=== PATIENT | male | born 1960 | race Caucasian/White ===

== ENCOUNTER 2016-04-12 22:24 | Emergency (ER) | payer OTHER ==
[2016-04-12 22:34] VITALS: BP 142/105; PULSE 97; RESP 18; TEMP 97.1
--- NOTE | 2016-04-12 22:59 | ED ---
General Adult HPI - General Chief complaint: Alcohol Stated complaint: ETOH, fall Time Seen by Provider: 04/12/16 22:29 Source: EMS, RN notes reviewed Mode of arrival: EMS Limitations: no limitations - History of Present Illness Initial comments: 56-year-old male presents emergency 5 chief complaint of fall. The patient without his house and he tripped and fell. Patient fell forward onto his hands and fell backwards onto his head. He had some odd sensation to the hands but denies any pain at this time. He did hit his head. According to family member he did not pass out. They were concerned because he hit his head. Patient does drink regularly. He states that he is intoxicated but they are here more for the fall.Patient denies any recent fever, chills, shortness of breath, chest pain, back pain, abdominal pain, nausea vomiting, numbness or tingling, dysuria or hematuria, constipation or diarrhea, headaches or visual changes, or any other current symptoms. - Related Data Home Medications Medication Instructions Recorded Confirmed No Known Home Medications [No 07/04/15 07/04/15 Known Home Medications] Allergies Allergy/AdvReac Type Severity Reaction Status Date / Time No Known Allergies Allergy Verified 04/12/16 22:34 Review of Systems ROS Statement: Those systems with pertinent positive or pertinent negative responses have been documented in the HPI. ROS Other: All systems not noted in ROS Statement are negative. Past Medical History Past Medical History: No Reported History History of Any Multi-Drug Resistant Organisms: None Reported Past Surgical History: No Surgical Hx Reported Past Psychological History: No Psychological Hx Reported Smoking Status: Current every day smoker Past Alcohol Use History: Daily, Heavy Past Drug Use History: None Reported General Exam Limitations: no limitations General appearance: alert, in no apparent distress, appears intoxicated Head exam: Present: atraumatic, normocephalic, normal inspection Eye exam: Present: normal appearance, PERRL, EOMI. Absent: scleral icterus, conjunctival injection, periorbital swelling ENT exam: Present: normal exam, mucous membranes moist Neck exam: Present: normal inspection. Absent: tenderness, meningismus, lymphadenopathy Respiratory exam: Present: normal lung sounds bilaterally. Absent: respiratory distress, wheezes, rales, rhonchi, stridor Cardiovascular Exam: Present: regular rate, normal rhythm, normal heart sounds. Absent: systolic murmur, diastolic murmur, rubs, gallop, clicks Back exam: Present: normal inspection Neurological exam: Present: alert, oriented X3, CN II-XII intact, normal gait. Absent: motor sensory deficit Psychiatric exam: Present: normal affect, normal mood, agitated Skin exam: Present: warm, dry, intact, normal color. Absent: rash Course Vital Signs 04/12/16 22:28 Temperature 97.1 F L Pulse Rate 97 Respiratory 18 Rate Blood Pressure 142/105 O2 Sat by Pulse 95 Oximetry Medical Decision Making - Medical Decision Making 56-year-old male presents to the emergency department with a chief complaint of fall. Patient is intoxicated in the room. Patient did have a CAT scan to the head injury. The sinuses reviewed and negative. Patient's significant other is in the room and does feel comfortable taking the patient home. She does take responsibility for him even though he is intoxicated. She states that she will watch him. This and she will have him discharged into her care. This is discussed with the patient and he agrees with this plan. QUESTIONS have been answered. He will be discharged. Disposition Clinical Impression: Fall, Alcoholic intoxication, Acute sinusitis Disposition: HOME SELF-CARE Condition: Stable Instructions: Alcohol Intoxication (ED), Head Injury (ED) Additional Instructions: Please use medication as discussed. Please follow up with family doctor if symptoms have not improved over the next two days. Please return to the emergency room if your symptoms increase or worsen or for any other concerns. Referrals: Diego Bonner MD [Primary Care Provider] - 1-2 days Time of Disposition: 23:16
--- NOTE | 2016-04-12 23:12 | CT ---
EXAM: CT Head Without Intravenous Contrast. CLINICAL HISTORY: Pain. TECHNIQUE: Axial computed tomography images of the head/brain without intravenous contrast. Coronal and sagittal reformations provided. DOSE INFORMATION: CTDI: 60.30 mGy DLP: 1084.60 mGy-cm COMPARISON: CT dated 07/04/2015. FINDINGS: Brain: No acute intracranial hemorrhage. No evidence of acute infarct. No significant white matter disease. No edema. No mass effect or midline shift. Ventricles: Unremarkable. No ventriculomegaly. Bones: Unremarkable. No acute fracture. Soft tissues: No significant soft tissue abnormality. Sinuses: Mucosal thickening, air-fluid level, and debris in the right maxillary sinus suggestive of acute sinusitis. Additional areas of mucosal thickening involving the paranasal sinuses, most prominently involving the ethmoid air cells. Mastoid air cells: Unremarkable as visualized. No mastoid effusion. IMPRESSION: 1. No evidence of acute intracranial abnormality. 2. Mucosal thickening, air-fluid level, and debris in the right maxillary sinus suggestive of acute sinusitis. Additional areas of mucosal thickening involving the paranasal sinuses, most prominently involving the ethmoid air cells. Recommend clinical correlation for sinusitis.
== END 2016-04-12 23:18 | disposition home or self-care (01) ==
LOC: EC 22:24
DX: S09.90XA Unspecified injury of head, initial encounter (principal); J01.90 Acute sinusitis, unspecified; F10.129 Alcohol abuse with intoxication, unspecified; F17.200 Nicotine dependence, unspecified, uncomplicated; W01.10XA Fall on same level from slipping, tripping and stumbling with subsequent striking against unspecified object, initial encounter
CPT/HCPCS: 70450; 99284

== ENCOUNTER 2017-08-07 12:42 | Emergency (ER) | payer OTHER ==
[2017-08-07 12:53] VITALS: BP 145/88; PULSE 79; RESP 18; TEMP 98
--- NOTE | 2017-08-07 13:29 | US ---
EXAMINATION TYPE: US venous doppler duplex LE RT DATE OF EXAM: 08/07/2017 1:22 PM COMPARISON: NONE CLINICAL HISTORY: Pain. Right lower leg pain x 3 days SIDE PERFORMED: Right TECHNIQUE: The lower extremity deep venous system is examined utilizing real time linear array sonog lyndon with graded compression, doppler sonography and color-flow sonography. VESSELS IMAGED: External Iliac Vein (EIV) Common Femoral Vein Deep Femoral Vein Greater Saphenous Vein * Femoral Vein Popliteal Vein Small Saphenous Vein * Proximal Calf Veins (* superficial vessels) Right Leg: Appears negative for DVT Grayscale, color doppler, spectral doppler imaging performed of the deep veins of the right lower ext remity. There is normal flow, compressibility, vascular waveforms. IMPRESSION: No ultrasound evidence for acute DVT in the right lower extremity.
--- NOTE | 2017-08-07 13:48 | ED ---
General Adult HPI - General Chief complaint: Extremity Injury, Lower Stated complaint: RT LEG PAIN Time Seen by Provider: 08/07/17 12:54 Source: patient Mode of arrival: wheelchair Limitations: no limitations - History of Present Illness Initial comments: 57-year-old male patient presents to the emergency department today for evaluation of right calf pain and swelling. Patient states that he woke up with the pain approximate 4 days ago. Patient states he has been wrapping with an Carlos Alberto wrap but nothing has been helping. Patient denies taking any pain medication for this. He denies any recent travel or long car rides. He denies any injury to the leg or calf. Denies any numbness or tingling to the leg. States that he does ride his bike a lot. Denies any fevers or chills. Denies any redness to the area. Denies any history of similar symptoms. Patient denies any recent rash, fever, chills, shortness breath, chest pain, abdominal pain, nausea, vomiting, diarrhea, constipation, back pain, numbness, tingling, dizziness, weakness, hematuria, dysuria, urinary urgency, urinary frequency, headache, visual changes, or any other complaints. - Related Data Home Medications Medication Instructions Recorded Confirmed traZODone HCL 50 mg PO HS 08/07/17 08/07/17 Previous Rx's Medication Instructions Recorded Ibuprofen [Motrin] 600 mg PO Q8HR PRN #30 tab 08/07/17 Allergies Allergy/AdvReac Type Severity Reaction Status Date / Time No Known Allergies Allergy Verified 08/07/17 12:59 Review of Systems ROS Statement: Those systems with pertinent positive or pertinent negative responses have been documented in the HPI. ROS Other: All systems not noted in ROS Statement are negative. Past Medical History Past Medical History: No Reported History History of Any Multi-Drug Resistant Organisms: None Reported Past Surgical History: No Surgical Hx Reported Past Psychological History: No Psychological Hx Reported Smoking Status: Current every day smoker Past Alcohol Use History: Daily, Heavy Past Drug Use History: None Reported General Exam Limitations: no limitations General appearance: alert, in no apparent distress, other (Physical well- developed, well-nourished adult male patient in no acute distress. Vital signs upon presentation are temperature 98.0F, pulse 79, respirations 18, blood pressure 145/88, pulse ox 98% on room air.) Eye exam: Present: normal appearance, PERRL, EOMI. Absent: scleral icterus, conjunctival injection, periorbital swelling ENT exam: Present: normal exam, normal oropharynx, mucous membranes moist Respiratory exam: Present: normal lung sounds bilaterally. Absent: respiratory distress, wheezes, rales, rhonchi, stridor Cardiovascular Exam: Present: regular rate, normal rhythm, normal heart sounds. Absent: systolic murmur, diastolic murmur, rubs, gallop, clicks Extremities exam: Present: normal inspection, full ROM, tenderness (Right calf tenderness), normal capillary refill, other (Skin to the right lower extremity is pink, warm, and dry. Cap refills less than 3 seconds. Pedal and posttibial pulses are 2+ and equal bilaterally.). Absent: pedal edema, joint swelling, calf tenderness Neurological exam: Present: alert, oriented X3, CN II-XII intact Psychiatric exam: Present: normal affect, normal mood Skin exam: Present: warm, dry, intact, normal color. Absent: rash Course Vital Signs 08/07/17 12:50 Temperature 98.0 F Pulse Rate 79 Respiratory 18 Rate Blood Pressure 145/88 O2 Sat by Pulse 98 Oximetry Medical Decision Making - Medical Decision Making 57-year-old male patient presented to the emergency department today for evaluation of right calf pain. Patient has no injury to the extremity. Physical examination is unremarkable. Patient neurovascularly intact. Ultrasound was obtained to rule out DVT, there is no evidence of DVT in the right lower extremity. Patient was given a prescription for ibuprofen. He was instructed to take this with food. He is instructed to follow-up with the primary care physician for recheck in 1-2 days. He is applying to Dr. Hernandez. Return parameters discussed in detail. He verbalizes understanding and agrees with this plan. - Radiology Data Radiology results: report reviewed, image reviewed Right lower extremity ultrasound was obtained. Report was reviewed in its entirety. Right leg appears negative for DVT. Impression by Dr. Chaves shows no ultrasound evidence for acute DVT in the right lower extremity. Disposition Clinical Impression: Strain of calf muscle Disposition: HOME SELF-CARE Condition: Good Instructions: Muscle Strain (ED) Additional Instructions: Rest the leg. Apply warm moist heat. Take ibuprofen as needed for pain control. Follow-up with your primary care physician for recheck in 1-2 days. Return here immediately for any new, worsening, or concerning symptoms. Prescriptions: Ibuprofen [Motrin] 600 mg PO Q8HR PRN #30 tab PRN Reason: Pain Is patient prescribed a controlled substance at d/c from ED?: No Referrals: None,Stated [Primary Care Provider] - 1-2 days Time of Disposition: 13:48
== END 2017-08-07 14:02 | disposition home or self-care (01) ==
LOC: EC 12:42
DX: S86.911A Strain of unspecified muscle(s) and tendon(s) at lower leg level, right leg, initial encounter (principal); F17.200 Nicotine dependence, unspecified, uncomplicated; Z79.899 Other long term (current) drug therapy; X58.XXXA Exposure to other specified factors, initial encounter
CPT/HCPCS: 99283

== ENCOUNTER 2017-08-29 13:21 | Emergency (ER) | payer OTHER ==
[2017-08-29] MEDS ORDERED: MAG HYDROX/AL HYDROX/SIMETH 30 ML, HYOSCYAMINE ELIXIR 10 ML, CIMETIDINE HCL 300 MG, LID... PO STA ×4 (14:30)
--- NOTE | 2017-08-29 14:52 | XR ---
EXAMINATION TYPE: XR chest 2V DATE OF EXAM: 08/29/2017 COMPARISON: NONE HISTORY: Chest pain TECHNIQUE: Frontal and lateral views of the chest are obtained. FINDINGS: There is no focal air space opacity, pleural effusion, or pneumothorax seen. The cardiac silhouette size is within normal limits. The osseous structures are intact. There are overlying car diac leads. IMPRESSION: No acute cardiopulmonary process.
[2017-08-29 14:59] LABS: Anisocytosis Slight; Basophils # (A) 0.1 k/uL (0-0.2); Basophils % (A) 1 %; Eosinophils # (A) 0.2 k/uL (0-0.7); Eosinophils % (A) 3 %; HCT 47.9 % (39.0-53.0); HGB 15.9 gm/dL (13.0-17.5); Lymphocytes # (A) 1.7 k/uL (1.0-4.8); Lymphocytes % (A) 24 %; MCH 34.3 pg (25.0-35.0); MCHC 33.1 g/dL (31.0-37.0); MCV 103.4 fL (80.0-100.0); Macrocytosis Moderate; Mean Platelet Volume 6.7; Monocytes # (A) 0.6 k/uL (0-1.0); Monocytes % (A) 8 %; Neutrophils # (A) 4.4 k/uL (1.3-7.7); Neutrophils % (A) 62 %; Platelet Count 267 k/uL (150-450); RBC 4.63 m/uL (4.30-5.90); RDW 16.9 % (11.5-15.5); WBC 7.1 k/uL (3.8-10.6)
[2017-08-29 15:02] LABS: Partial Thromboplastin Time 24.7 sec (22.0-30.0); Prothrombin Time 9.7 sec (9.0-12.0)
[2017-08-29 15:08] LABS: Albumin 3.9 g/dL (3.5-5.0); Calcium 9.5 mg/dL (8.4-10.2); Magnesium 2.3 mg/dL (1.6-2.3); Potassium 4.3 mmol/L (3.5-5.1); Total Bilirubin 0.7 mg/dL (0.2-1.3); Total Protein 7.3 g/dL (6.3-8.2)
[2017-08-29 15:23] VITALS: RESP 20
[2017-08-29 15:34] LABS: Creatine Kinase 469 U/L (55-170)
[2017-08-29] MEDS ORDERED: KETOROLAC 30 MG/ML 1 ML VIAL IVP STA (15:43)
[2017-08-29] MEDS ORDERED: PANTOPRAZOLE 40 MG/10 ML VIAL IVP STA (15:43)
--- NOTE | 2017-08-29 15:46 | ED ---
General Adult HPI - General Chief complaint: Chest Pain Stated complaint: Throat Pain Time Seen by Provider: 08/29/17 14:08 Source: patient, RN notes reviewed, old records reviewed Mode of arrival: ambulatory Limitations: no limitations - History of Present Illness Initial comments: This is a 57-year-old male the ER for evaluation chest pain. Substernal chest pain that states she is worse when swallowing. Patient has no medical history no travel history no sick contacts. Patient denies fevers or shortness of breath. States when he takes a deep breath or chest tightness also 3 does feel some pain in his sternum. Patient states he is able swallow without difficulty. Pain is not worse when he palpates. Pain is not worse after eating chest with swallowing. Patient states he does drink any does smoke regularly - Related Data Home Medications Medication Instructions Recorded Confirmed traZODone HCL 50 mg PO HS 08/07/17 08/29/17 Allergies Allergy/AdvReac Type Severity Reaction Status Date / Time No Known Allergies Allergy Verified 08/29/17 14:23 Review of Systems ROS Statement: Those systems with pertinent positive or pertinent negative responses have been documented in the HPI. ROS Other: All systems not noted in ROS Statement are negative. Past Medical History Past Medical History: No Reported History Additional Past Medical History / Comment(s): hard of hearing History of Any Multi-Drug Resistant Organisms: None Reported Past Surgical History: No Surgical Hx Reported Past Psychological History: No Psychological Hx Reported Smoking Status: Current every day smoker Past Alcohol Use History: Daily, Heavy Past Drug Use History: None Reported General Exam Limitations: no limitations General appearance: alert, in no apparent distress Head exam: Present: atraumatic, normocephalic, normal inspection Eye exam: Present: normal appearance, PERRL, EOMI. Absent: scleral icterus, conjunctival injection, periorbital swelling ENT exam: Present: normal exam, mucous membranes moist Neck exam: Present: normal inspection. Absent: tenderness, meningismus, lymphadenopathy Respiratory exam: Present: normal lung sounds bilaterally. Absent: respiratory distress, wheezes, rales, rhonchi, stridor Cardiovascular Exam: Present: regular rate, normal rhythm, normal heart sounds. Absent: systolic murmur, diastolic murmur, rubs, gallop, clicks GI/Abdominal exam: Present: soft, normal bowel sounds. Absent: distended, tenderness, guarding, rebound, rigid Extremities exam: Present: normal inspection, full ROM, normal capillary refill. Absent: tenderness, pedal edema, joint swelling, calf tenderness Back exam: Present: normal inspection Neurological exam: Present: alert, oriented X3, CN II-XII intact Psychiatric exam: Present: normal affect, normal mood Skin exam: Present: warm, dry, intact, normal color. Absent: rash Course Vital Signs 08/29/17 08/29/17 13:54 14:07 Temperature 98.2 F Pulse Rate 76 72 Respiratory 18 20 Rate Blood Pressure 142/88 126/85 O2 Sat by Pulse 98 99 Oximetry - Reevaluation(s) Reevaluation #1: 08/29/17 15:45 Patient has no improvement with GI cocktail, no worsening with abdominal or chest palpation. Patient currently without pain EKG Findings - EKG Comments: EKG Findings:: EKG shows normal sinus rhythm rate of 66, [place] 124, QRS 84, QTc 427 Medical Decision Making - Medical Decision Making 57 male the ER with nonspecific chest pain. No cardiac risk factors aside from smoking. Patient has negative EKG negative troponin. Patient also has normal lab values and normal ultrasound. Patient can be discharged home, x-ray also normal - Lab Data Result diagrams: 08/29/17 14:40 08/29/17 14:40 Lab Results 08/29/17 08/29/17 08/29/17 Range/Units 14:40 14:40 14:40 WBC 7.1 (3.8-10.6) k/uL RBC 4.63 (4.30-5.90) m/uL Hgb 15.9 (13.0-17.5) gm/dL Hct 47.9 (39.0-53.0) % MCV 103.4 H (80.0-100.0) fL MCH 34.3 (25.0-35.0) pg MCHC 33.1 (31.0-37.0) g/dL RDW 16.9 H (11.5-15.5) % Plt Count 267 (150-450) k/uL Neutrophils % 62 % Lymphocytes % 24 % Monocytes % 8 % Eosinophils % 3 % Basophils % 1 % Neutrophils # 4.4 (1.3-7.7) k/uL Lymphocytes # 1.7 (1.0-4.8) k/uL Monocytes # 0.6 (0-1.0) k/uL Eosinophils # 0.2 (0-0.7) k/uL Basophils # 0.1 (0-0.2) k/uL Anisocytosis Slight Macrocytosis Moderate PT (9.0-12.0) sec INR (<1.2) APTT (22.0-30.0) sec Sodium 136 L (137-145) mmol/L Potassium 4.3 (3.5-5.1) mmol/L Chloride 98 (98-107) mmol/L Carbon Dioxide 31 H (22-30) mmol/L Anion Gap 7 mmol/L BUN 11 (9-20) mg/dL Creatinine 1.13 (0.66-1.25) mg/dL Est GFR (CKD-EPI)AfAm 83 (>60 ml/min/1.73 sqM) Est GFR (CKD-EPI)NonAf 72 (>60 ml/min/1.73 sqM) Glucose 96 (74-99) mg/dL Calcium 9.5 (8.4-10.2) mg/dL Magnesium 2.3 (1.6-2.3) mg/dL Total Bilirubin 0.7 (0.2-1.3) mg/dL AST 59 (17-59) U/L ALT 73 H (21-72) U/L Alkaline Phosphatase 84 (38-126) U/L Total Creatine Kinase 469 H (55-170) U/L CK-MB (CK-2) 8.7 H* (0.0-2.4) ng/mL CK-MB (CK-2) Rel Index 1.9 Troponin I <0.012 (0.000-0.034) ng/mL Total Protein 7.3 (6.3-8.2) g/dL Albumin 3.9 (3.5-5.0) g/dL Lipase 123 (23-300) U/L 08/29/17 Range/Units 14:40 WBC (3.8-10.6) k/uL RBC (4.30-5.90) m/uL Hgb (13.0-17.5) gm/dL Hct (39.0-53.0) % MCV (80.0-100.0) fL MCH (25.0-35.0) pg MCHC (31.0-37.0) g/dL RDW (11.5-15.5) % Plt Count (150-450) k/uL Neutrophils % % Lymphocytes % % Monocytes % % Eosinophils % % Basophils % % Neutrophils # (1.3-7.7) k/uL Lymphocytes # (1.0-4.8) k/uL Monocytes # (0-1.0) k/uL Eosinophils # (0-0.7) k/uL Basophils # (0-0.2) k/uL Anisocytosis Macrocytosis PT 9.7 (9.0-12.0) sec INR 1.0 (<1.2) APTT 24.7 (22.0-30.0) sec Sodium (137-145) mmol/L Potassium (3.5-5.1) mmol/L Chloride (98-107) mmol/L Carbon Dioxide (22-30) mmol/L Anion Gap mmol/L BUN (9-20) mg/dL Creatinine (0.66-1.25) mg/dL Est GFR (CKD-EPI)AfAm (>60 ml/min/1.73 sqM) Est GFR (CKD-EPI)NonAf (>60 ml/min/1.73 sqM) Glucose (74-99) mg/dL Calcium (8.4-10.2) mg/dL Magnesium (1.6-2.3) mg/dL Total Bilirubin (0.2-1.3) mg/dL AST (17-59) U/L ALT (21-72) U/L Alkaline Phosphatase (38-126) U/L Total Creatine Kinase (55-170) U/L CK-MB (CK-2) (0.0-2.4) ng/mL CK-MB (CK-2) Rel Index Troponin I (0.000-0.034) ng/mL Total Protein (6.3-8.2) g/dL Albumin (3.5-5.0) g/dL Lipase (23-300) U/L - Radiology Data Radiology results: report reviewed (Chest x-ray negative), image reviewed Disposition Clinical Impression: Chest pain, Atypical chest pain, Dysphagia Disposition: HOME SELF-CARE Condition: Good Instructions: Chest Pain (ED) Is patient prescribed a controlled substance at d/c from ED?: No Referrals: None,Stated [Primary Care Provider] - 1-2 days
[2017-08-29 15:47] LABS: Troponin I <0.012 ng/mL (0.000-0.034)
[2017-08-29 15:52] LABS: Creatine Kinase MB 8.7 ng/mL (0.0-2.4)
[2017-08-29 16:21] VITALS: BP 131/83; PULSE 64; TEMP 98.3
== END 2017-08-29 16:30 | disposition home or self-care (01) ==
LOC: EC 13:21
DX: R07.89 Other chest pain (principal); R13.10 Dysphagia, unspecified; F17.200 Nicotine dependence, unspecified, uncomplicated; Z79.899 Other long term (current) drug therapy
CPT/HCPCS: 36415; 93005; 80053; 82550; 82553; 83690; 83735; 84484; 85025; 85610; 85730; 71046; 99285; 96374; 96375; J1885; C9113

== ENCOUNTER 2018-02-12 01:23 | Emergency (ER) | payer OTHER ==
[2018-02-12] MEDS ORDERED: FAMOTIDINE 20 MG/2 ML VIAL IV STA (01:32)
--- NOTE | 2018-02-12 01:38 | ED ---
Chest Pain HPI - General Stated Complaint: CHEST PAIN Time Seen by Provider: 02/12/18 01:23 - History of Present Illness Initial Comments: Is a 58-year-old male with no past medical history who presents emergency department for epigastric pain and chest pain. He states the symptoms been going on intermittently for the last 3 days. He states that it started more in his epigastric region however now has radiated up into his chest. He states that currently he has no pain. He states that it's been intermittent in nature. It does seem to be made worse after eating however not drinking. He states that he does drink alcohol regularly and did drink this evening. He denies any lightheadedness or dizziness. He does admit to some vomiting however no hematemesis. No diarrhea. Denies any shortness of breath or cough. No other acute complaints. Patient did call an ambulance who gave him an aspirin and an EKG which is unremarkable. He did not receive any nitroglycerin because he had no pain at the time. - Related Data Home Medications Medication Instructions Recorded Confirmed traZODone HCL 50 mg PO HS 08/07/17 08/29/17 Previous Rx's Medication Instructions Recorded Omeprazole 40 mg PO DAILY #30 capsule. 02/12/18 Ranitidine HCl [Zantac] 150 mg PO HS #30 tab 02/12/18 Allergies Allergy/AdvReac Type Severity Reaction Status Date / Time No Known Allergies Allergy Verified 08/29/17 14:23 Review of Systems ROS Statement: Those systems with pertinent positive or pertinent negative responses have been documented in the HPI. ROS Other: All systems not noted in ROS Statement are negative. EKG Findings - EKG Comments: EKG Findings:: EKG showing normal sinus rhythm with a rate of 77. There is no abnormal lie segment changes or T-wave or appear QTC is 445. Other intervals normal. No ectopy. Past Medical History Past Medical History: No Reported History Additional Past Medical History / Comment(s): hard of hearing History of Any Multi-Drug Resistant Organisms: None Reported Past Surgical History: No Surgical Hx Reported Past Psychological History: No Psychological Hx Reported Smoking Status: Current every day smoker Past Alcohol Use History: Daily, Heavy Past Drug Use History: None Reported General Exam - General Exam Comments Initial Comments: Constitutional: Awake alert Appears comfortable Head: Normocephalic atraumatic Eyes: no conjunctival injection No scleral icterus EOMI Neck: No JVD Supple Heart: Regular rate rhythm normal S1-S2 no murmurs Lungs: Clear to auscultation bilaterally No wheezing No rales Abdomen: Soft nondistended nontender Extremities: Non edematous DP pulses intact Radial pulses intact Neuro: A&Ox3 No focal neurologic deficits Psych: Appropriate mood and affect Course Vital Signs 02/12/18 01:30 Temperature 98.3 F Pulse Rate 78 Respiratory 19 Rate Blood Pressure 130/87 O2 Sat by Pulse 97 Oximetry Chest Pain MDM - MDM Is a 58-year-old male presents emergency department for epigastric pain and chest pain. The patient was given Pepcid in the emergency department with great relief in his symptoms. He states he felt much improved. EKG was unremarkable. Troponin negative. The rest of his blood work was unremarkable as well. I feel that his symptoms are likely related to gastritis and reflux. He will be given omeprazole and Zantac for home. Told to follow-up closely with his primary doctor. If it recurrent or worsening symptoms he can return emergency Department for reevaluation. All questions were answered. Disposition Clinical Impression: Epigastric pain, Chest pain Disposition: HOME SELF-CARE Condition: Stable Instructions: Gastritis (ED) Prescriptions: Omeprazole 40 mg PO DAILY #30 capsule. Ranitidine HCl [Zantac] 150 mg PO HS #30 tab Is patient prescribed a controlled substance at d/c from ED?: No Referrals: None,Stated [Primary Care Provider] - 1-2 days
[2018-02-12 02:03] LABS: Basophils # (A) 0.1 k/uL (0-0.2); Basophils % (A) 1 %; Eosinophils # (A) 0.3 k/uL (0-0.7); Eosinophils % (A) 3 %; HCT 43.4 % (39.0-53.0); HGB 13.9 gm/dL (13.0-17.5); Lymphocytes # (A) 2.2 k/uL (1.0-4.8); Lymphocytes % (A) 26 %; MCH 31.2 pg (25.0-35.0); MCHC 31.9 g/dL (31.0-37.0); MCV 97.6 fL (80.0-100.0); Macrocytosis Slight; Mean Platelet Volume 6.7; Monocytes # (A) 0.4 k/uL (0-1.0); Monocytes % (A) 5 %; Neutrophils # (A) 5.2 k/uL (1.3-7.7); Neutrophils % (A) 63 %; Platelet Count 314 k/uL (150-450); RBC 4.45 m/uL (4.30-5.90); RDW 15.6 % (11.5-15.5); WBC 8.3 k/uL (3.8-10.6)
--- NOTE | 2018-02-12 02:10 | XR ---
EXAMINATION TYPE: XR chest 2V DATE OF EXAM: 02/12/2018 COMPARISON: 08/29/2017 HISTORY: Chest pain TECHNIQUE: Frontal and lateral views of the chest are obtained. FINDINGS: Heart and mediastinum are normal. Lungs are clear. Diaphragm is normal. Bony thorax appear s normal. IMPRESSION: Normal chest. No change.
[2018-02-12 02:13] LABS: ALT 26 U/L (21-72); AST 34 U/L (17-59); Albumin 4.2 g/dL (3.5-5.0); Alkaline Phosphatase 68 U/L (38-126); Anion Gap 14 mmol/L; Blood Urea Nitrogen 12 mg/dL (9-20); Calcium 9.2 mg/dL (8.4-10.2); Carbon Dioxide 23 mmol/L (22-30); Chloride 104 mmol/L (98-107); Glucose 102 mg/dL (74-99); Lipase 138 U/L (23-300); Sodium 141 mmol/L (137-145); Total Bilirubin 0.7 mg/dL (0.2-1.3); Total Protein 8.1 g/dL (6.3-8.2)
[2018-02-12 02:14] LABS: Potassium 4.7 mmol/L (3.5-5.1)
[2018-02-12 02:37] LABS: Creatine Kinase MB 3.8 ng/mL (0.0-2.4); Troponin I <0.012 ng/mL (0.000-0.034)
[2018-02-12 02:54] LABS: INR 0.9 (<1.2); Partial Thromboplastin Time 24.7 sec (22.0-30.0)
[2018-02-12 04:21] VITALS: BP 124/87; PULSE 73; RESP 18; TEMP 97.9
== END 2018-02-12 03:50 | disposition home or self-care (01) ==
LOC: EC 01:23
DX: R10.13 Epigastric pain (principal); R07.9 Chest pain, unspecified; R11.10 Vomiting, unspecified; F17.200 Nicotine dependence, unspecified, uncomplicated; Z79.899 Other long term (current) drug therapy
CPT/HCPCS: 36415; 71046; 80053; 82553; 83690; 83735; 84484; 85025; 85610; 85730; 93005; 96374; 99285

== ENCOUNTER 2018-09-20 20:58 | Emergency (ER) | payer OTHER ==
[2018-09-20] MEDS ORDERED: IBUPROFEN 600 MG TAB PO STA (21:54)
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
[2018-09-20] MEDS ORDERED: MORPHINE SULFATE 4 MG/ML SYRINGE IVP STA (22:20)
[2018-09-20] MEDS ORDERED: SODIUM CHLORIDE 0.9% 1,000 ML IV ONE (22:20)
[2018-09-20] MEDS ORDERED: AMPICILLIN-SULBACTAM 3 GM in SODIUM CHLORIDE 0.9% 100 ML IVPB ONE (22:30)
[2018-09-20 22:44] LABS: Basophils % (A) 0 %; Eosinophils # (A) 0.2 k/uL (0-0.7); Eosinophils % (A) 3 %; Lymphocytes # (A) 1.3 k/uL (1.0-4.8); Lymphocytes % (A) 15 %; MCH 34.2 pg (25.0-35.0); MCHC 31.3 g/dL (31.0-37.0); MCV 109.2 fL (80.0-100.0); Macrocytosis Marked; Mean Platelet Volume 7.1; Monocytes # (A) 0.4 k/uL (0-1.0); Monocytes % (A) 5 %; Neutrophils # (A) 6.7 k/uL (1.3-7.7); Neutrophils % (A) 76 %; Platelet Count 239 k/uL (150-450); RDW 14.6 % (11.5-15.5); WBC 8.8 k/uL (3.8-10.6)
[2018-09-20 22:52] LABS: INR 0.9 (<1.2); Partial Thromboplastin Time 23.6 sec (22.0-30.0); Prothrombin Time 9.7 sec (9.0-12.0)
[2018-09-20 23:13] LABS: Target Cells Present
[2018-09-20 23:14] LABS: Tear Drop Cells Present
[2018-09-20 23:46] LABS: ALT 86 U/L (21-72); AST 100 U/L (17-59); African American GFR (CKD) >90 (>60 ml/min/1.73 sqM); Albumin 4.2 g/dL (3.5-5.0); Alkaline Phosphatase 100 U/L (38-126); Blood Urea Nitrogen 11 mg/dL (9-20); Calcium 9.2 mg/dL (8.4-10.2); Carbon Dioxide 26 mmol/L (22-30); Glucose 99 mg/dL (74-99); Non-African American GFR(CKD) 86 (>60 ml/min/1.73 sqM); Total Bilirubin 0.3 mg/dL (0.2-1.3); Total Protein 7.9 g/dL (6.3-8.2)
[2018-09-20 23:47] LABS: Alcohol 202 mg/dL
[2018-09-20 23:50] LABS: Anion Gap 12 mmol/L; Chloride 106 mmol/L (98-107); Sodium 144 mmol/L (137-145)
[2018-09-21] MEDS ORDERED: SODIUM CHLORIDE 0.9% 1,000 ML IV STA (01:02)
[2018-09-21] MEDS ORDERED: LORazepam 2 MG/ML INJ IV STA (01:02)
[2018-09-21 01:05] LABS: Glucose,Whole Blood 103 mg/dL (75-99)
[2018-09-21] MEDS ORDERED: LORazepam 2 MG/ML INJ IV PRN ×3 (01:08)
[2018-09-21] MEDS ORDERED: THIAMINE 100 MG/ML 2 ML VIAL IM STA (01:08)
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
[2018-09-21 02:17] LABS: Basophils # (A) 0.1 k/uL (0-0.2); Basophils % (A) 0 %; Eosinophils # (A) 0.4 k/uL (0-0.7); Eosinophils % (A) 3 %; HCT 46.2 % (39.0-53.0); HGB 14.8 gm/dL (13.0-17.5); Lymphocytes # (A) 1.8 k/uL (1.0-4.8); Lymphocytes % (A) 12 %; MCH 35.6 pg (25.0-35.0); Macrocytosis Marked; Mean Platelet Volume 7.4; Monocytes # (A) 0.7 k/uL (0-1.0); Monocytes % (A) 5 %; Neutrophils # (A) 11.8 k/uL (1.3-7.7); Neutrophils % (A) 79 %; Platelet Count 211 k/uL (150-450); RBC 4.15 m/uL (4.30-5.90); RDW 14.7 % (11.5-15.5); WBC 14.9 k/uL (3.8-10.6)
[2018-09-21 02:20] LABS: MCV 111.2 fL (80.0-100.0)
[2018-09-21 02:55] LABS: ALT 81 U/L (21-72); AST 87 U/L (17-59); African American GFR (CKD) >90 (>60 ml/min/1.73 sqM); Albumin 3.6 g/dL (3.5-5.0); Alkaline Phosphatase 76 U/L (38-126); Anion Gap 9 mmol/L; Blood Urea Nitrogen 9 mg/dL (9-20); Calcium 8.1 mg/dL (8.4-10.2); Carbon Dioxide 23 mmol/L (22-30); Chloride 113 mmol/L (98-107); Glucose 91 mg/dL (74-99); Non-African American GFR(CKD) >90 (>60 ml/min/1.73 sqM); Sodium 145 mmol/L (137-145); Total Bilirubin 0.4 mg/dL (0.2-1.3); Total Protein 7.3 g/dL (6.3-8.2)
[2018-09-21 02:58] LABS: Alcohol 121 mg/dL
[2018-09-21 03:17] LABS: Cocaine Screen,Urine Not Detected (NotDetected); Phencyclidine Screen,Urine Not Detected (NotDetected)
[2018-09-21 03:18] LABS: Amphetamine Screen,Urine Detected (NotDetected); Barbiturate Screen,Urine Not Detected (NotDetected); Benzodiazepines Screen,Urine Not Detected (NotDetected); Methadone Screen, Urine Not Detected (NotDetected); Opiate Screen,Urine Detected (NotDetected); Oxycodone Screen, Urine Not Detected (NotDetected); Tricyclic Antidepressant,Urine Not Detected (NotDetected); Urn Cannabinoid Scrn Not Detected (NotDetected)
[2018-09-21 03:54] VITALS: TEMP 97.8
[2018-09-21 04:24] VITALS: BP 115/70; PULSE 85; RESP 12
[2018-09-21] MEDS ORDERED: THIAMINE 100 MG TAB PO SCH (17:00)
== END 2018-09-21 04:30 | disposition home or self-care (01) ==
LOC: EC 20:58
DX: S02.69XA Fracture of mandible of other specified site, initial encounter for closed fracture (principal); S01.512A Laceration without foreign body of oral cavity, initial encounter; S09.90XA Unspecified injury of head, initial encounter; T74.11XA Adult physical abuse, confirmed, initial encounter; F10.129 Alcohol abuse with intoxication, unspecified; F17.200 Nicotine dependence, unspecified, uncomplicated; J34.89 Other specified disorders of nose and nasal sinuses; R56.9 Unspecified convulsions; D72.829 Elevated white blood cell count, unspecified; H91.90 Unspecified hearing loss, unspecified ear; Z53.20 Procedure and treatment not carried out because of patient's decision for unspecified reasons; Y04.0XXA Assault by unarmed brawl or fight, initial encounter; Y93.89 Activity, other specified; Y92.89 Other specified places as the place of occurrence of the external cause
CPT/HCPCS: 36415 ×2; 93005; 80053 ×2; 83605; 85025 ×2; 85610; 85730; 80306; 72125; 70486; 70450 ×2; 99285; 96365; 96375 ×2; 96361 ×3; G0480 ×2; J2060; J2270; J3411; J0295; 80320

== ENCOUNTER 2019-10-16 18:32 | Emergency (ER) | payer OTHER ==
[2019-10-16 18:53] LABS: Glucose,Whole Blood 106 mg/dL (75-99)
--- NOTE | 2019-10-16 19:02 | ED ---
General Adult HPI - General Chief complaint: Neck Pain/Injury Stated complaint: poss stroke Time Seen by Provider: 10/16/19 18:49 Source: patient, family Mode of arrival: wheelchair Limitations: altered mental status - History of Present Illness Initial comments: Dictation was produced using [employer] dictation software. please excuse any grammatical, word or spelling errors. This patient was cared for during a federal and state declared state of emergency secondary to Covid 19 Chief Complaint: 59-year-old male with past medical history of alcoholism presents with chief complaint of neck pain and altered mental status. History of Present Illness: His 59-year-old male he is accompanied by his girlfriend of several years. Since last night been having neck pain. Patient states the neck pain is to his right upper neck. It's worse when he moves. Girlfriend at bedside reports that he is also confused. Patient has history of chronic alcohol abuse. She reports that patient has not had any alcoholic beverages today. Patient has no chest pain. No abdominal pain. No fever, chills or night sweats. Patient's girlfriend reports that patient has been having symptoms like this for the last 3 days. The ROS documented in this emergency department record has been reviewed and confirmed by me. Those systems with pertinent positive or negative responses have been documented in the HPI. All other systems are other negative and/or noncontributory. PHYSICAL EXAM: General Impression: Alert and oriented x3, not in acute distress, lethargic, arousable HEENT: Normocephalic atraumatic, extra-ocular movements intact, pupils equal and reactive to light bilaterally, mucous membranes moist. Cardiovascular: Heart regular rate and rhythm Chest: Able to complete full sentences, no retractions, no tachypnea Abdomen: abdomen soft, non-tender, non-distended, no organomegaly Musculoskeletal: Pulses present and equal in all extremities, no peripheral edema, tenderness to palpation over the right upper neck around the level of C3- C4 Motor: no focal deficits noted Neurological: CN II-XII grossly intact, no focal motor or sensory deficits noted, negative Brudzinski's, negative Kernig's Skin: Intact with no visualized rashes Psych: Normal affect and mood ED course: 59-year-old male presents with neck pain and altered mental status. All signs upon arrival are within acceptable limits. Laboratory evaluation obtained. CBC shows macrocytosis. Rest of CBC is unremarkable. Coag panel is negative. Metabolic panel is negative. Chest x- ray is not acute. Computed tomography scan of the C-spine and computed tomography scan of the brain is unremarkable. Patient does seem as if he is inebriated on some sort of drug. Urine drug screen positive for multiple illicit substances. Patient reevaluated at bedside found to be stable medical condition. He states his pain is improved. Patient likely pulled a muscle. He is agreeable for discharge under the care of his girlfriend. He is warned of the effects of illicit drug use. - Related Data Home Medications Medication Instructions Recorded Confirmed traZODone HCL 50 mg PO HS 08/07/17 08/29/17 Previous Rx's Medication Instructions Recorded Omeprazole 40 mg PO DAILY #30 capsule. 02/12/18 Ranitidine HCl [Zantac] 150 mg PO HS #30 tab 02/12/18 Acetaminophen with Codeine 1 tab PO Q6H PRN 3 Days #12 tab 09/21/18 [Tylenol w/codeine #3] Clindamycin [Cleocin] 450 mg PO TID 7 Days capsule 09/21/18 Allergies Allergy/AdvReac Type Severity Reaction Status Date / Time No Known Allergies Allergy Verified 08/29/17 14:23 Review of Systems ROS Statement: Those systems with pertinent positive or pertinent negative responses have been documented in the HPI. ROS Other: All systems not noted in ROS Statement are negative. Past Medical History Past Medical History: No Reported History Additional Past Medical History / Comment(s): hard of hearing History of Any Multi-Drug Resistant Organisms: None Reported Past Surgical History: No Surgical Hx Reported Past Psychological History: No Psychological Hx Reported Smoking Status: Current every day smoker Past Alcohol Use History: Daily, Heavy Past Drug Use History: None Reported General Exam Limitations: altered mental status Course Vital Signs 10/16/19 18:43 Temperature 98.9 F Pulse Rate 69 Respiratory 18 Rate Blood Pressure 133/97 O2 Sat by Pulse 98 Oximetry Medical Decision Making - Lab Data Result diagrams: 10/16/19 19:07 10/16/19 19:07 Lab Results 10/16/19 10/16/19 10/16/19 Range/Units 18:51 19:07 19:07 WBC (3.8-10.6) k/uL RBC (4.30-5.90) m/uL Hgb (13.0-17.5) gm/dL Hct (39.0-53.0) % MCV (80.0-100.0) fL MCH (25.0-35.0) pg MCHC (31.0-37.0) g/dL RDW (11.5-15.5) % Plt Count (150-450) k/uL Neutrophils % % Lymphocytes % % Monocytes % % Eosinophils % % Basophils % % Neutrophils # (1.3-7.7) k/uL Lymphocytes # (1.0-4.8) k/uL Monocytes # (0-1.0) k/uL Eosinophils # (0-0.7) k/uL Basophils # (0-0.2) k/uL Macrocytosis PT (9.0-12.0) sec INR (<1.2) APTT (22.0-30.0) sec Sodium 139 (137-145) mmol/L Potassium 4.0 (3.5-5.1) mmol/L Chloride 106 (98-107) mmol/L Carbon Dioxide 26 (22-30) mmol/L Anion Gap 7 mmol/L BUN 16 (9-20) mg/dL Creatinine 0.98 (0.66-1.25) mg/dL Est GFR (CKD-EPI)AfAm >90 (>60 ml/min/1.73 sqM) Est GFR (CKD-EPI)NonAf 85 (>60 ml/min/1.73 sqM) Glucose 112 H (74-99) mg/dL POC Glucose (mg/dL) 106 H (75-99) mg/dL POC Glu Waiver Analyst ID Brijesh Leiva Osmolality 296 (280-301) mosm/kg Plasma Lactic Acid Swapnil 0.6 L (0.7-2.0) mmol/L Calcium 9.6 (8.4-10.2) mg/dL Magnesium 2.0 (1.6-2.3) mg/dL Total Bilirubin 0.6 (0.2-1.3) mg/dL AST 51 (17-59) U/L ALT 58 H (4-49) U/L Alkaline Phosphatase 103 (38-126) U/L Ammonia 37 H (<30) umol/L Total Protein 7.5 (6.3-8.2) g/dL Albumin 4.0 (3.5-5.0) g/dL Salicylates <1.0 mg/dL Urine Opiates Screen (NotDetected) Ur Oxycodone Screen (NotDetected) Urine Methadone Screen (NotDetected) Ur Propoxyphene Screen (NotDetected) Acetaminophen <10.0 ug/mL Ur Barbiturates Screen (NotDetected) U Tricyclic Antidepress (NotDetected) Ur Phencyclidine Scrn (NotDetected) Ur Amphetamines Screen (NotDetected) U Methamphetamines Scrn (NotDetected) U Benzodiazepines Scrn (NotDetected) Urine Cocaine Screen (NotDetected) U Marijuana (THC) Screen (NotDetected) Serum Alcohol <10 mg/dL 10/16/19 10/16/19 10/16/19 Range/Units 19:07 19:07 19:07 WBC 10.8 H (3.8-10.6) k/uL RBC 4.35 (4.30-5.90) m/uL Hgb 14.3 (13.0-17.5) gm/dL Hct 45.0 (39.0-53.0) % MCV 103.5 H (80.0-100.0) fL MCH 32.8 (25.0-35.0) pg MCHC 31.7 (31.0-37.0) g/dL RDW 15.4 (11.5-15.5) % Plt Count 279 (150-450) k/uL Neutrophils % 70 % Lymphocytes % 19 % Monocytes % 6 % Eosinophils % 4 % Basophils % 1 % Neutrophils # 7.5 (1.3-7.7) k/uL Lymphocytes # 2.0 (1.0-4.8) k/uL Monocytes # 0.6 (0-1.0) k/uL Eosinophils # 0.5 (0-0.7) k/uL Basophils # 0.1 (0-0.2) k/uL Macrocytosis Moderate PT 9.5 (9.0-12.0) sec INR 0.9 (<1.2) APTT 25.7 (22.0-30.0) sec Sodium (137-145) mmol/L Potassium (3.5-5.1) mmol/L Chloride (98-107) mmol/L Carbon Dioxide (22-30) mmol/L Anion Gap mmol/L BUN (9-20) mg/dL Creatinine (0.66-1.25) mg/dL Est GFR (CKD-EPI)AfAm (>60 ml/min/1.73 sqM) Est GFR (CKD-EPI)NonAf (>60 ml/min/1.73 sqM) Glucose (74-99) mg/dL POC Glucose (mg/dL) (75-99) mg/dL POC Glu Waiver Analyst ID Osmolality (280-301) mosm/kg Plasma Lactic Acid Swapnil (0.7-2.0) mmol/L Calcium (8.4-10.2) mg/dL Magnesium (1.6-2.3) mg/dL Total Bilirubin (0.2-1.3) mg/dL AST (17-59) U/L ALT (4-49) U/L Alkaline Phosphatase (38-126) U/L Ammonia (<30) umol/L Total Protein (6.3-8.2) g/dL Albumin (3.5-5.0) g/dL Salicylates mg/dL Urine Opiates Screen Not Detected (NotDetected) Ur Oxycodone Screen Detected H (NotDetected) Urine Methadone Screen Not Detected (NotDetected) Ur Propoxyphene Screen Not Detected (NotDetected) Acetaminophen ug/mL Ur Barbiturates Screen Detected H (NotDetected) U Tricyclic Antidepress Not Detected (NotDetected) Ur Phencyclidine Scrn Not Detected (NotDetected) Ur Amphetamines Screen Detected H (NotDetected) U Methamphetamines Scrn Detected H (NotDetected) U Benzodiazepines Scrn Not Detected (NotDetected) Urine Cocaine Screen Not Detected (NotDetected) U Marijuana (THC) Screen Not Detected (NotDetected) Serum Alcohol mg/dL Disposition Clinical Impression: Neck strain Disposition: HOME SELF-CARE Condition: Good Instructions (If sedation given, give patient instructions): Cervical Strain (ED), Polysubstance Abuse (ED) Is patient prescribed a controlled substance at d/c from ED?: No Referrals: Schuyler Hernandez MD [Primary Care Provider] - 1-2 days Time of Disposition: 20:37
[2019-10-16 19:19] LABS: Basophils # (A) 0.1 k/uL (0-0.2); Basophils % (A) 1 %; Eosinophils # (A) 0.5 k/uL (0-0.7); Eosinophils % (A) 4 %; HGB 14.3 gm/dL (13.0-17.5); Lymphocytes % (A) 19 %; MCH 32.8 pg (25.0-35.0); MCHC 31.7 g/dL (31.0-37.0); MCV 103.5 fL (80.0-100.0); Macrocytosis Moderate; Mean Platelet Volume 7.8; Monocytes # (A) 0.6 k/uL (0-1.0); Monocytes % (A) 6 %; Neutrophils # (A) 7.5 k/uL (1.3-7.7); Neutrophils % (A) 70 %; Platelet Count 279 k/uL (150-450); RBC 4.35 m/uL (4.30-5.90); RDW 15.4 % (11.5-15.5); WBC 10.8 k/uL (3.8-10.6)
[2019-10-16 19:28] LABS: INR 0.9 (<1.2); Partial Thromboplastin Time 25.7 sec (22.0-30.0); Prothrombin Time 9.5 sec (9.0-12.0)
[2019-10-16 19:34] LABS: ALT 58 U/L (4-49); AST 51 U/L (17-59); Acetaminophen <10.0 ug/mL; African American GFR (CKD) >90 (>60 ml/min/1.73 sqM); Alcohol <10 mg/dL; Alkaline Phosphatase 103 U/L (38-126); Anion Gap 7 mmol/L; Blood Urea Nitrogen 16 mg/dL (9-20); Calcium 9.6 mg/dL (8.4-10.2); Carbon Dioxide 26 mmol/L (22-30); Chloride 106 mmol/L (98-107); Glucose 112 mg/dL (74-99); Non-African American GFR(CKD) 85 (>60 ml/min/1.73 sqM); Salicylate <1.0 mg/dL; Sodium 139 mmol/L (137-145); Total Bilirubin 0.6 mg/dL (0.2-1.3); Total Protein 7.5 g/dL (6.3-8.2)
[2019-10-16 19:35] LABS: Lactic Acid, Venous 0.6 mmol/L (0.7-2.0)
--- NOTE | 2019-10-16 19:37 | XR ---
EXAMINATION: XR chest 1V portable DATE AND TIME: 10/16/2019 7:16 PM CLINICAL INDICATION: ams; pain TECHNIQUE: AP upright portable COMPARISON: 02/12/2018 FINDINGS: Right hemidiaphragm is elevated, this was seen on the prior study. This does not allow full visualization of the right lower lobe. The lungs are clear. The pleural spaces are negative. The cardiac silhouette is not enlarged. The remainder of the mediastinal silhouette is unremarkable. The skeletal structures and soft tissues are negative for acute findings. IMPRESSION: No definite acute radiographic process.
[2019-10-16 20:25] LABS: Amphetamine Screen,Urine Detected (NotDetected); Barbiturate Screen,Urine Detected (NotDetected); Benzodiazepines Screen,Urine Not Detected (NotDetected); Cocaine Screen,Urine Not Detected (NotDetected); Methadone Screen, Urine Not Detected (NotDetected); Opiate Screen,Urine Not Detected (NotDetected); Oxycodone Screen, Urine Detected (NotDetected); Phencyclidine Screen,Urine Not Detected (NotDetected); Tricyclic Antidepressant,Urine Not Detected (NotDetected); Urn Cannabinoid Scrn Not Detected (NotDetected)
--- NOTE | 2019-10-16 20:29 | CT ---
EXAMINATION TYPE: CT brain cspine wo con DATE OF EXAM: 10/16/2019 COMPARISON: 09/21/2018 HISTORY: Altered mental status and neck pain. CT DLP: 1366 mGycm Automated exposure control for dose reduction was used. TECHNIQUE: CT scan of the head and cervical spine are performed without contrast. FINDINGS: There is no acute intracranial hemorrhage, mass effect, or midline shift identified. The ventricles and sulci are within normal limits in size. The globes are intact and the visualized sin uses are clear. Cervical spine is visualized in its entirety from C1 through upper thoracic levels and demonstrates s atisfactory alignment without evidence of acute fracture or dislocation. Prevertebral soft tissue ap pears within normal limits. Prominent multilevel cervical spondylosis changes are noted. The C1-C2 ar ticulation is unremarkable. IMPRESSION: 1. There is no acute fracture or dislocation evident in the cervical spine. 2. No acute intracranial hemorrhage, mass effect, or midline shift is seen.
[2019-10-16] MEDS ORDERED: LIDOCAINE 5% PATCH TOPICAL STA (20:37)
[2019-10-16 21:09] VITALS: BP 133/89; PULSE 63; RESP 12; TEMP 97.6
== END 2019-10-16 21:09 | disposition home or self-care (01) ==
LOC: EC 18:32
DX: S16.1XXA Strain of muscle, fascia and tendon at neck level, initial encounter (principal); D75.89 Other specified diseases of blood and blood-forming organs; F17.200 Nicotine dependence, unspecified, uncomplicated; X58.XXXA Exposure to other specified factors, initial encounter
CPT/HCPCS: 36415; 83930; 80053; 82140; 83605; 83735; 85025; 85610; 85730; 80306; 83520; 71045; 72125; 70450; 99285; G0480 ×2; 80320; 80329

== ENCOUNTER 2019-10-28 03:36 | Emergency (ER) | payer OTHER ==
[2019-10-28 03:44] VITALS: BP 121/88; PULSE 67; RESP 16; TEMP 97.3
--- NOTE | 2019-10-28 04:28 | ED ---
General Adult HPI - General Stated complaint: neck pain Time Seen by Provider: 10/28/19 03:41 Source: patient, EMS Mode of arrival: EMS Limitations: no limitations - History of Present Illness Initial comments: Jae is a 59-year-old male with a history of alcohol abuse he was evaluated in our hospital nearly 2 weeks ago for right-sided neck pain. Patient reports he did not follow-up with any physicians outpatient because no one called him with an appointment. He states that he has not been taking anything for his pain. Patient reports that he's had continuous neck pain since that time. Denies any specific injuries. Patient's girlfriend at bedside states that tonight he was in pain so she called the ambulance. EMS reports that patient fell asleep and route to the hospital appeared to be in no acute distress. - Related Data Home Medications Medication Instructions Recorded Confirmed traZODone HCL 50 mg PO HS 08/07/17 08/29/17 Previous Rx's Medication Instructions Recorded Omeprazole 40 mg PO DAILY #30 capsule. 02/12/18 Ranitidine HCl [Zantac] 150 mg PO HS #30 tab 02/12/18 Acetaminophen with Codeine 1 tab PO Q6H PRN 3 Days #12 tab 09/21/18 [Tylenol w/codeine #3] Clindamycin [Cleocin] 450 mg PO TID 7 Days capsule 09/21/18 Methocarbamol [Robaxin-750] 750 mg PO TID #30 tablet 10/28/19 Allergies Allergy/AdvReac Type Severity Reaction Status Date / Time No Known Allergies Allergy Verified 10/28/19 03:44 Review of Systems ROS Statement: Those systems with pertinent positive or pertinent negative responses have been documented in the HPI. ROS Other: All systems not noted in ROS Statement are negative. Past Medical History Past Medical History: No Reported History Additional Past Medical History / Comment(s): hard of hearing History of Any Multi-Drug Resistant Organisms: None Reported Past Surgical History: No Surgical Hx Reported Past Psychological History: No Psychological Hx Reported Smoking Status: Current every day smoker Past Alcohol Use History: Daily, Heavy Past Drug Use History: None Reported General Exam - General Exam Comments Initial Comments: Physical Exam GENERAL: Chronically ill-appearing, appears older than stated age HENT: Normocephalic, Atraumatic. Edentulous EYES: PERRL, EOMI PULMONARY: Unlabored respirations. CARDIOVASCULAR: RRR Warm and well perfused extremities ABDOMEN: Non-distended SKIN: No rashes or bruising : Normal external genitalia, circumcised NEUROLOGIC: Moving all extremities no apparent weaknesses MUSCULOSKELETAL: Moving all extremities with no apparent injury PSYCHIATRIC: No SI/HI Limitations: no limitations Course Vital Signs 10/28/19 03:42 Temperature 97.3 F L Pulse Rate 67 Respiratory 16 Rate Blood Pressure 121/88 O2 Sat by Pulse 98 Oximetry Medical Decision Making - Medical Decision Making The patient was seen and evaluated upon arrival to the emergency department, patient was noted to be sleeping and noted distress Girlfriend arrived at bedside reports that the patient's complaint of intermittent pain, states that no one has called them for a follow-up appointment so they have not followed up Patient slept throughout his stay here in the emergency department he appeared to be in no distress, I didn't feel that additional pain medication was indicated, on evaluation the patient did have small pupils are concerning for narcotic use though the patient denied this I advised the patient and his girlfriend at bedside I will refer them to both spine surgeons in the [place] Dr. Edwards and Dr. Riddle they can call tomorrow for follow-up for his chronic neck pain Patient will be prescribed Robaxin for muscle relaxer Patient will be discharged home for outpatient follow-up Disposition Clinical Impression: Chronic pain Disposition: HOME SELF-CARE Condition: Stable Additional Instructions: As we discussed you can take tylenol/motrin for your neck pain, use a heating pad, take the muscle relaxor as needed Call Dr Riddle or Dr Edwards for follow up Prescriptions: Methocarbamol [Robaxin-750] 750 mg PO TID #30 tablet Is patient prescribed a controlled substance at d/c from ED?: No Referrals: Schuyler Hernandez MD [Primary Care Provider] - 1-2 days Parveen Riddle DO [Doctor of Osteopathic Medicine] - 1-2 days Jorge Alberto Wolf DO [Doctor of Osteopathic Medicine] - 1-2 days
== END 2019-10-28 04:39 | disposition home or self-care (01) ==
LOC: EC 03:36
DX: G89.29 Other chronic pain (principal); M54.2 Cervicalgia; F17.200 Nicotine dependence, unspecified, uncomplicated
CPT/HCPCS: 99283

== ENCOUNTER 2019-11-21 18:36 | Inpatient (IN) | payer OTHER ==
[2019-11-21] MEDS ORDERED: LORazepam 2 MG/ML INJ IV PRN (22:38)
[2019-11-21] MEDS ORDERED: ONDANSETRON 4 MG/2 ML VIAL IVP PRN (22:52)
[2019-11-21] MEDS: ACETAMINOPHEN TAB 500 MG TAB PO PRN (23:28)
[2019-11-22] MEDS: CLINDAMYCIN 600 MG in DEXTROSE 5% IN WATER 50 ML IVPB SCH ×6 (00:04→16:21)
[2019-11-22] MEDS: 1: MVI, ADULT NO.4 WITH VIT K 10 ML, THIAMINE 100 MG, FOLIC ACID 1 MG in SODIUM CHLORIDE IV SCH ×8 (00:15→13:59)
[2019-11-22] MEDS: IPRATROPIUM-ALBUTEROL 3 ML NEB INHALATION SCH ×4 (08:21→20:17)
[2019-11-22 08:29] LABS: INR 0.9 (<1.2); Partial Thromboplastin Time 28.9 sec (22.0-30.0); Prothrombin Time 9.4 sec (9.0-12.0)
[2019-11-22] MEDS ORDERED: NICOTINE 21MG/24HR PATCH TRANSDERM SCH (09:00)
[2019-11-22] MEDS ORDERED: PANTOPRAZOLE 40 MG/10 ML VIAL IVP SCH (09:00)
[2019-11-22] MEDS: ACETAMINOPHEN TAB 500 MG TAB PO PRN ×2 (09:20→16:22)
--- NOTE | 2019-11-22 12:25 | P.HPIM ---
History of Present Illness H&P Date: 11/22/19 This patient is a 59-year-old male with history of alcoholism and mild COPD who is not on any medications and follows with Dr. Alvarez for primary care. He has smoked one pack a day for the last 25 years and drinks approximately a fifth a day of alcohol for the last 20 years. He was brought to [facility] emergency department by his girlfriend on 11/15/2019 after she found him on the floor complaining of severe neck pain and headache with significant confusion, fever, and chills and had slept for approximately 24 hours. According to his girlfriend the patient apparently had a history of a seizure one time last year most likely alcohol related. He was seen in the ER, white blood cells were elevated and patient had low-grade temperature. UA came back negative, chest x-ray did not show any signs of infiltrate. LP was done at [facility] which had showed no growth, preliminary blood cultures showed staph. Patient was placed on IV antibiotics for aspiration pneumonia and was admitted to [facility] where patient did go through DTs and was followed in the intensive care closely, Covid 19 testing was negative. MRI of the cervical spine was done and revealed that there appears to be a large disc herniation extending posterior to the C 12 vertebral level with surrounding granulation tissue differential diagnosis could include epidural abscess in the proper clinical setting, left C2-C3 paracentral disc herniation and moderate cord deformity in the left paracentral region, spi nal canal stenosis at C3 to 4 secondary to moderate sized disc herniation with cord compression. Patient was then transferred to [facility] for orthopedic consult. Consult for ID in place, will assess need for possible interventional radiology to drain abscess. Continue Kefzol and clindamycin IV. Review of Systems ROS unobtainable: due to mental status Past Medical History Past Medical History: No Reported History, Unable to Obtain, COPD, Seizure Disorder Additional Past Medical History / Comment(s): hard of hearing Last Myocardial Infarction Date:: Alcoholism, Possible seizure history, likely related to alcohol withdrawal, History of Any Multi-Drug Resistant Organisms: None Reported Past Surgical History: No Surgical Hx Reported Past Psychological History: No Psychological Hx Reported Smoking Status: Current every day smoker (1 pack per day for 25 years) Past Alcohol Use History: Abuse, Daily (Fifth of alcohol daily), Heavy Past Drug Use History: None Reported - Past Family History Father Additional Family Medical History / Comment(s): Difficult to obtain, the patient does not have any children, history of cancer and one sibling, one with CAD, one of his parents from CAD. Medications and Allergies Home Medications Medication Instructions Recorded Confirmed Type methocarbamoL [Robaxin] 750 mg PO TID 11/21/19 11/21/19 History Allergies Allergy/AdvReac Type Severity Reaction Status Date / Time No Known Allergies Allergy Verified 11/21/19 22:09 Physical Exam Vitals: Vital Signs Temp Pulse Resp BP Pulse Ox 11/22/19 11:45 98 F 79 18 116/72 100 11/22/19 07:37 97.8 F 68 18 135/72 98 11/22/19 04:00 97.8 F 68 17 118/77 99 11/22/19 00:00 97.8 F 78 17 120/78 98 11/21/19 21:58 97.7 F 86 18 115/71 96 Intake and Output 11/21/19 11/22/19 11/22/19 22:59 06:59 14:59 Intake Total 200 Output Total 1200 Balance 200 -1200 Intake: Oral 200 Output: Urine 1200 Uretheral (Booker) 1200 Other: Voiding Method Indwelling Catheter Indwelling Catheter # Voids 1 1 Weight 68 kg 68 kg General: Lethargic, oriented to person only, with confusion, difficulty following commands HEENT: Sclerae are clear. Pupils equal, round and reactive to light bilaterally. No cervical adenopathy. No pharyngeal erythema or exudate. No thyromegaly. Lymphatic: No anterior cervical adenopathy. Chest: Heart regular in rate and rhythm positive S1 and S2. No S3. No S4. No clicks, rubs or murmurs. Lungs: Diminished auscultation bilaterally. Scattered wheeze. Abdomen/GI: Bowel sounds present in all 4 quadrants. Bowel sounds normoactive. No abdominal tenderness. No mass. No hepatomegaly or splenomegaly. No bruits. : Musculoskeletal/ Extremities: Points to neck when asked about pain Vascular: Radial pulses equal. 2/4. Skin: No rash. Neurologic: Drowsy, does arouse, not orientated to place or situation. Unable to follow commands - Constitutional General appearance: average body habitus Thrombosis Risk Factor Assmnt - Choose All That Apply Any of the Below Risk Factors Present?: Yes Each Factor Represents 1 point: Age 41-60 years Other Risk Factors: No Other congenital or acquired thrombophilia - If yes, enter type in comment: No Thrombosis Risk Factor Assessment Total Risk Factor Score: 1 Thrombosis Risk Factor Assessment Level: Low Risk Assessment and Plan Assessment: 1. Spinal/epidural abscess. Found on MRI of cervical spine done at [facility]. Continue IV cephalosporin and clindamycin with consults to Dr. Riddle and infectious disease. May need possible interventional radiologist consult to drain abscess will await infectious disease recommendations 2. Bacteremia pending blood cultures were positive for MSSA, continue IV antibiotics and recommendations from infectious disease 3. Altered mental status. Not a clear etiology most likely encephalopathy from alcoholism, alcohol withdrawal, post seizure suppression, possible infectious process. 4. Aspiration pneumonia. Mildly elevated white blood cell, patient clinically has aspiration pneumonia seen pulmonary at [facility] and received IV Zosyn. Currently on clindamycin and cefazolin IV. We'll do one-on-one feeding with aspiration precautions once mentation improves. 5. Seizure and possible alcoholic seizure. Patient is not on any medication currently, will continue lorazepam as needed with seizure precautions. 6. Hyponatremia. Most likely from alcoholism and mild SIADH, received IV hydration with improvement. Will monitor CMP. 7. Chronic alcoholism. Patient went through DTs will continue to monitor and use lorazepam as needed. 8. Severe cervical spine pain. Tylenol when necessary 9. BPH. Booker catheter in place 10. GI prophylaxis. Continue Protonix. 11. DVT prophylaxis. Heparin subcu CODE STATUS full code. Patient will be admitted to the hospital for minimum of 2 night stay. Discharge plan: Possibly home pending course Impression and plan of care have been directed as dictated by the signing physician. Romelia Hill nurse practitioner acting as scribe for signing physician.
--- NOTE | 2019-11-22 12:41 | P.CNOR ---
History of Present Illness - HPI Consult date: 11/22/19 History of present illness: This is a 59-year-old male history of substance abuse who was transferred from [facility] for management of neck pain. Patient is seen and evaluated at bedside today. Patient is a poor historian and would not give any history. Per the patient's chart, he has been treated for MSSA bacteremia with IV antibiotics. Patient was also being managed for alcohol withdrawal. Patient was admitted on 11/15/2019 after being found on the floor by a girlfriend. An MRI of the cervical spine from 11/21/2019 shows large disc herniation extending posterior to the C2 vertebral level with surrounding granulation tissue. Patient appears in pain when observed at bedside, but will not answer questions. Review of Systems ROS unobtainable: due to mental status Past Medical History Past Medical History: No Reported History Additional Past Medical History / Comment(s): hard of hearing History of Any Multi-Drug Resistant Organisms: None Reported Past Surgical History: No Surgical Hx Reported Past Psychological History: No Psychological Hx Reported Smoking Status: Current every day smoker Past Alcohol Use History: Daily, Heavy Past Drug Use History: None Reported - Past Family History Father Additional Family Medical History / Comment(s): Difficult to obtain, the patient does not have any children, history of cancer and one sibling, one with CAD, one of his parents from CAD. Medications and Allergies Home Medications Medication Instructions Recorded Confirmed Type methocarbamoL [Robaxin] 750 mg PO TID 11/21/19 11/21/19 History Allergies Allergy/AdvReac Type Severity Reaction Status Date / Time No Known Allergies Allergy Verified 11/21/19 22:09 Physical Examination On exam patient is in obvious pain lying in bed. Upon inspection, there is no swelling, erythema or ecchymosis over the back. There is no step-off or deformity upon palpation of the spine. Unable to obtain thorough exam due to patient's pain. Patient is uncooperative during exam due to pain. Results An MRI of the cervical spine shows 1. Large disc herniation extending posterior to the C2 vertebral level with surrounding granulation tissue. Differential diagnosis could include epidural abscess in the proper clinical setting. 2. Left C2-C3 paracentral disc herniation and also has moderate cord deformity in the left paracentral region. 3. Spinal canal stenosis at C3-4 secondary to moderate sized disc herniation with cord compression. - Labs Labs: Coagulation 11/22/19 Range/Units 07:44 INR 0.9 (<1.2) Assessment and Plan Assessment: Disc herniation of C2 vertebra with possible epidural abscess. (1) Bacteremia Current Visit: Yes Status: Acute Code(s): R78.81 - BACTEREMIA SNOMED Code(s): 1922837 Plan: MRI showing disc herniation of C2 with possible epidural abscess. At this time we are recommending transfer to tertiary facility for further management.
[2019-11-22] MEDS: MORPHINE SULFATE 2 MG/ML SYRINGE IVP PRN ×2 (14:55→23:00)
[2019-11-22 20:53] VITALS: BP 124/75; PULSE 76; RESP 17; TEMP 98.4
[2019-11-22] MEDS ORDERED: HEPARIN SODIUM,PORCINE 5,000 UNIT/ML 1 ML VIAL SQ SCH (21:00)
--- NOTE | 2019-11-23 10:55 | P.DS ---
Providers Date of admission: 11/21/19 21:48 Expected date of discharge: 11/22/19 Attending physician: Kristal Musa Consults: 11/21/19 22:52 Consult Physician Routine Consulting Provider: Sola Burr Consult Reason/Comments: positive blood culture Do you want consulting provider notified?: Yes, Notify in am 11/22/19 08:53 Consult Physician Routine Consulting Provider: Parveen Riddle Consult Reason/Comments: spinal/epidural abscess Do you want consulting provider notified?: Yes Primary care physician: [facility] Course: This patient is a 59-year-old male with history of alcoholism and mild COPD who is not on any medications and follows with Dr. Alvarez for primary care. He has smoked one pack a day for the last 25 years and drinks approximately a fifth a day of alcohol for the last 20 years. He was brought to [facility] emergency department by his girlfriend on 11/15/2019 after she found him on the floor complaining of severe neck pain and headache with significant confusion, fever, and chills and had slept for approximately 24 hours. According to his girlfriend the patient apparently had a history of a seizure one time last year most likely alcohol related. He was seen in the ER, white blood cells were elevated and patient had low-grade temperature. UA came back negative, chest x-ray did not show any signs of infiltrate. LP was done at [facility] which had showed no growth, preliminary blood cultures showed staph. Patient was placed on IV antibiotics for aspiration pneumonia and was admitted to [facility] where patient did go through DTs and was followed in the intensive care closely, Covid 19 testing was negative. MRI of the cervical spine was done and revealed that there appears to be a large disc herniation extending posterior to the C 12 vertebral level with surrounding granulation tissue differential diagnosis could include epidural abscess in the proper clinical setting, left C2-C3 paracentral disc herniation and moderate cord deformity in the left paracentral region, spinal canal stenosis at C3 to 4 secondary to moderate sized disc herniation with cord compression. Patient was then transferred to [facility] for orthopedic consult. Consult for ID in place, will assess need for possible interventional radiology to drain abscess. Continue Kefzol and clindamycin IV. Further recommendations from orthopedic spine, based from [facility] ON CONCERN FOR EPIDURAL ABSCESS C2 C3 LEVEL,that [facility], hence [facility] was contacted by the transfer team, and was subsequently accepted in the facility patient was stable on transfer. With IV and IV clindamycin as recommendations from infectious disease Dr. Burr. Assessment and Plan Assessment: 1. Spinal/epidural abscess. Found on MRI of cervical spine done at [facility]. Continue IV cephalosporin and clindamycin with consults to Dr. Riddle and infectious disease. May need possible interventional radiologist consult to drain abscess will await infectious disease recommendations. Patient was seen by orthopedic spine, and recommended that he be transferred to tertiary facility, [facility] has been contacted and was accepted 2. Bacteremia blood cultures were positive for MSSA, continue IV antibiotics and recommendations from infectious disease 3. Altered mental status. Not a clear etiology most likely encephalopathy from alcoholism, alcohol withdrawal, post seizure suppression, possible infectious process. 4. Aspiration pneumonia. Mildly elevated white blood cell, patient clinically has aspiration pneumonia seen pulmonary at [facility] and received IV Zosyn. Currently on clindamycin and cefazolin IV. We'll do one-on-one feeding with aspiration precautions once mentation improves. 5. Seizure and possible alcoholic seizure. Patient is not on any medication currently, will continue lorazepam as needed with seizure precautions. Has been off when necessary Ativan at least 2 days prior to admission 6. Hyponatremia. Most likely from alcoholism and mild SIADH, received IV hydration with improvement. Will monitor CMP. 7. Chronic alcoholism. Patient went through DTs will continue to monitor and use lorazepam as needed. 8. Severe cervical spine pain. Tylenol when necessary 9. BPH. Booker catheter in place 10. GI prophylaxis. Continue Protonix. 11. DVT prophylaxis. Heparin subcu CODE STATUS full code. Patient will be admitted to the hospital for minimum of 2 night stay. Disposition, transfer to [facility], family medicine/internal medicine with consults to infectious disease and neurosurgery service consultation Plan - Discharge Summary Discharge Rx Participant: No New Discharge Prescriptions: No Action methocarbamoL [Robaxin] 750 mg PO TID Discharge Medication List methocarbamoL [Robaxin] 750 mg PO TID 11/21/19 [History] Discharge Disposition: OTHER INSTITUTION NOT DEFINED
== END 2019-11-22 23:15 | disposition short-term general hospital (02) | DRG 94 ==
LOC: 3SCARD 21:48
PROVIDERS: ADMIT Family Medicine; ATTEND Family Medicine
DX: G06.1 Intraspinal abscess and granuloma (principal); J69.0 Pneumonitis due to inhalation of food and vomit; R78.81 Bacteremia; E22.2 Syndrome of inappropriate secretion of antidiuretic hormone; M50.03 Cervical disc disorder with myelopathy, cervicothoracic region; H91.90 Unspecified hearing loss, unspecified ear; G40.909 Epilepsy, unspecified, not intractable, without status epilepticus; F17.210 Nicotine dependence, cigarettes, uncomplicated; G31.2 Degeneration of nervous system due to alcohol; N40.0 Benign prostatic hyperplasia without lower urinary tract symptoms; M48.02 Spinal stenosis, cervical region; B95.61 Methicillin susceptible Staphylococcus aureus infection as the cause of diseases classified elsewhere; J44.9 Chronic obstructive pulmonary disease, unspecified; I25.2 Old myocardial infarction; Z82.49 Family history of ischemic heart disease and other diseases of the circulatory system; Z80.9 Family history of malignant neoplasm, unspecified
CPT/HCPCS: 85610; 85730

== ENCOUNTER 2021-10-10 00:18 | Emergency (ER) | payer OTHER ==
[2021-10-10 00:26] VITALS: TEMP 97.9
[2021-10-10] MEDS ORDERED: SODIUM CHLORIDE 0.9% 1,000 ML IV ONE (00:58)
[2021-10-10] MEDS ORDERED: SODIUM CHLORIDE 0.9% 1,000 ML IV STA (00:58)
[2021-10-10 01:05] LABS: Basophils # (A) 0.1 k/uL (0-0.2); Basophils % (A) 1 %; Eosinophils # (A) 0.4 k/uL (0-0.7); Eosinophils % (A) 5 %; HCT 42.5 % (39.0-53.0); HGB 13.5 gm/dL (13.0-17.5); Lymphocytes # (A) 2.3 k/uL (1.0-4.8); Lymphocytes % (A) 31 %; MCH 31.3 pg (25.0-35.0); MCHC 31.6 g/dL (31.0-37.0); MCV 98.8 fL (80.0-100.0); Mean Platelet Volume 7.5; Monocytes # (A) 0.4 k/uL (0-1.0); Monocytes % (A) 5 %; Neutrophils # (A) 4.2 k/uL (1.3-7.7); Neutrophils % (A) 56 %; Platelet Count 246 k/uL (150-450); RDW 14.7 % (11.5-15.5); WBC 7.5 k/uL (3.8-10.6)
[2021-10-10 01:16] LABS: ALT 62 U/L (4-49); AST 49 U/L (17-59); African American GFR (CKD) >90 (>60 ml/min/1.73 sqM); Alkaline Phosphatase 107 U/L (38-126); Anion Gap 16 mmol/L; Blood Urea Nitrogen 13 mg/dL (9-20); Carbon Dioxide 21 mmol/L (22-30); Chloride 107 mmol/L (98-107); Glucose 118 mg/dL (74-99); Magnesium 2.1 mg/dL (1.6-2.3); Non-African American GFR(CKD) 85 (>60 ml/min/1.73 sqM); Potassium 3.6 mmol/L (3.5-5.1); Sodium 144 mmol/L (137-145); Total Bilirubin 0.2 mg/dL (0.2-1.3); Total Protein 7.6 g/dL (6.3-8.2)
[2021-10-10 01:20] LABS: Alcohol 189 mg/dL
[2021-10-10 02:56] LABS: Appearance,Urine Clear (Clear); Bilirubin,Urine Negative (Negative); Blood,Urine Negative (Negative); Color,Urine Yellow; Glucose,Urine (UA) Negative (Negative); Ketones,Urine Negative (Negative); Leukocyte Esterase,Urine Negative (Negative); Nitrite,Urine Negative (Negative); PH, Urine 5.5 (5.0-8.0); Protein,Urine Trace (Negative); Specific Gravity,Urine 1.013 (1.001-1.035); Urobilinogen,Urine <2.0 mg/dL (<2.0)
--- NOTE | 2021-10-10 02:57 | ED ---
General Adult HPI - General Chief complaint: Urogenital Stated complaint: UTI Time Seen by Provider: 10/10/21 00:41 Source: patient, EMS Mode of arrival: EMS - History of Present Illness Initial comments: This patient is a 61-year-old man, who states to me that his chief complaint is weakness and muscle cramps. The patient states that he knows he has a drinking problem but he has been drinking and thinks she is getting dehydrated. He states that he was with his girlfriend and he started having spasms in the back of his legs. He states that it was interfering with sexual function. The patient states he was not having any chest pain or dyspnea. The spasms have stopped now -: hour(s) Location: left, right, lower extremity Radiation: non-radiation Quality: other (Spasms) Consistency: intermittent, now resolved Improves with: none Worsens with: none Associated Symptoms: weakness Treatments Prior to Arrival: none - Related Data Home Medications Medication Instructions Recorded Confirmed methocarbamoL [Robaxin] 750 mg PO TID 11/21/19 11/21/19 Allergies Allergy/AdvReac Type Severity Reaction Status Date / Time No Known Allergies Allergy Verified 10/10/21 00:26 Review of Systems ROS Statement: Those systems with pertinent positive or pertinent negative responses have been documented in the HPI. ROS Other: All systems not noted in ROS Statement are negative. Constitutional: Reports: weakness. Denies: fever, chills Respiratory: Denies: cough, dyspnea Cardiovascular: Denies: chest pain, palpitations, edema, syncope Gastrointestinal: Denies: abdominal pain, vomiting, diarrhea Genitourinary: Denies: dysuria, hematuria Musculoskeletal: Reports: myalgia. Denies: back pain Skin: Denies: rash Neurological: Denies: headache, weakness, numbness Past Medical History Past Medical History: No Reported History Additional Past Medical History / Comment(s): hard of hearing Last Myocardial Infarction Date:: Alcoholism, Possible seizure history, likely related to alcohol withdrawal, History of Any Multi-Drug Resistant Organisms: None Reported Past Surgical History: No Surgical Hx Reported Past Psychological History: No Psychological Hx Reported Smoking Status: Current every day smoker Past Alcohol Use History: Daily, Heavy Past Drug Use History: None Reported - Past Family History Father Additional Family Medical History / Comment(s): Difficult to obtain, the patient does not have any children, history of cancer and one sibling, one with CAD, one of his parents from CAD. General Exam General appearance: alert, in no apparent distress, appears intoxicated Head exam: Present: atraumatic, normocephalic Eye exam: Present: normal appearance. Absent: scleral icterus, conjunctival injection ENT exam: Present: mucous membranes dry Neck exam: Present: normal inspection, full ROM. Absent: meningismus Respiratory exam: Present: normal lung sounds bilaterally. Absent: respiratory distress, wheezes, rales, rhonchi, stridor Cardiovascular Exam: Present: regular rate, normal rhythm, systolic murmur. Absent: diastolic murmur, rubs, gallop GI/Abdominal exam: Present: soft. Absent: distended, tenderness, guarding, rebound, rigid, mass Extremities exam: Present: normal inspection, normal capillary refill. Absent: pedal edema, calf tenderness Back exam: Present: normal inspection. Absent: CVA tenderness (R), CVA tendern ess (L) Neurological exam: Present: alert Skin exam: Present: warm, dry, intact, normal color. Absent: rash Course Vital Signs 10/10/21 10/10/21 00:21 03:17 Temperature 97.9 F Pulse Rate 90 88 Respiratory 24 22 Rate Blood Pressure 113/76 148/88 O2 Sat by Pulse 95 98 Oximetry Medical Decision Making - Lab Data Result diagrams: 10/10/21 00:33 10/10/21 00:33 Lab Results 10/10/21 10/10/21 10/10/21 Range/Units 00:33 00:33 00:33 WBC 7.5 (3.8-10.6) k/uL RBC 4.30 (4.30-5.90) m/uL Hgb 13.5 (13.0-17.5) gm/dL Hct 42.5 (39.0-53.0) % MCV 98.8 (80.0-100.0) fL MCH 31.3 (25.0-35.0) pg MCHC 31.6 (31.0-37.0) g/dL RDW 14.7 (11.5-15.5) % Plt Count 246 (150-450) k/uL MPV 7.5 Neutrophils % 56 % Lymphocytes % 31 % Monocytes % 5 % Eosinophils % 5 % Basophils % 1 % Neutrophils # 4.2 (1.3-7.7) k/uL Lymphocytes # 2.3 (1.0-4.8) k/uL Monocytes # 0.4 (0-1.0) k/uL Eosinophils # 0.4 (0-0.7) k/uL Basophils # 0.1 (0-0.2) k/uL Sodium 144 (137-145) mmol/L Potassium 3.6 (3.5-5.1) mmol/L Chloride 107 (98-107) mmol/L Carbon Dioxide 21 L (22-30) mmol/L Anion Gap 16 mmol/L BUN 13 (9-20) mg/dL Creatinine 0.97 (0.66-1.25) mg/dL Est GFR (CKD-EPI)AfAm >90 (>60 ml/min/1.73 sqM) Est GFR (CKD-EPI)NonAf 85 (>60 ml/min/1.73 sqM) Glucose 118 H (74-99) mg/dL Calcium 9.0 (8.4-10.2) mg/dL Magnesium 2.1 (1.6-2.3) mg/dL Total Bilirubin 0.2 (0.2-1.3) mg/dL AST 49 (17-59) U/L ALT 62 H (4-49) U/L Alkaline Phosphatase 107 (38-126) U/L Total Protein 7.6 (6.3-8.2) g/dL Albumin 4.0 (3.5-5.0) g/dL Urine Color Yellow Urine Appearance Clear (Clear) Urine pH 5.5 (5.0-8.0) Ur Specific Butler 1.013 (1.001-1.035) Urine Protein Trace H (Negative) Urine Glucose (UA) Negative (Negative) Urine Ketones Negative (Negative) Urine Blood Negative (Negative) Urine Nitrite Negative (Negative) Urine Bilirubin Negative (Negative) Urine Urobilinogen <2.0 (<2.0) mg/dL Ur Leukocyte Esterase Negative (Negative) Urine Opiates Screen (NotDetected) Ur Oxycodone Screen (NotDetected) Urine Methadone Screen (NotDetected) Ur Propoxyphene Screen (NotDetected) Ur Barbiturates Screen (NotDetected) U Tricyclic Antidepress (NotDetected) Ur Phencyclidine Scrn (NotDetected) Ur Amphetamines Screen (NotDetected) U Methamphetamines Scrn (NotDetected) U Benzodiazepines Scrn (NotDetected) Urine Cocaine Screen (NotDetected) U Marijuana (THC) Screen (NotDetected) Serum Alcohol 189 mg/dL 10/10/21 Range/Units 00:33 WBC (3.8-10.6) k/uL RBC (4.30-5.90) m/uL Hgb (13.0-17.5) gm/dL Hct (39.0-53.0) % MCV (80.0-100.0) fL MCH (25.0-35.0) pg MCHC (31.0-37.0) g/dL RDW (11.5-15.5) % Plt Count (150-450) k/uL MPV Neutrophils % % Lymphocytes % % Monocytes % % Eosinophils % % Basophils % % Neutrophils # (1.3-7.7) k/uL Lymphocytes # (1.0-4.8) k/uL Monocytes # (0-1.0) k/uL Eosinophils # (0-0.7) k/uL Basophils # (0-0.2) k/uL Sodium (137-145) mmol/L Potassium (3.5-5.1) mmol/L Chloride (98-107) mmol/L Carbon Dioxide (22-30) mmol/L Anion Gap mmol/L BUN (9-20) mg/dL Creatinine (0.66-1.25) mg/dL Est GFR (CKD-EPI)AfAm (>60 ml/min/1.73 sqM) Est GFR (CKD-EPI)NonAf (>60 ml/min/1.73 sqM) Glucose (74-99) mg/dL Calcium (8.4-10.2) mg/dL Magnesium (1.6-2.3) mg/dL Total Bilirubin (0.2-1.3) mg/dL AST (17-59) U/L ALT (4-49) U/L Alkaline Phosphatase (38-126) U/L Total Protein (6.3-8.2) g/dL Albumin (3.5-5.0) g/dL Urine Color Urine Appearance (Clear) Urine pH (5.0-8.0) Ur Specific Butler (1.001-1.035) Urine Protein (Negative) Urine Glucose (UA) (Negative) Urine Ketones (Negative) Urine Blood (Negative) Urine Nitrite (Negative) Urine Bilirubin (Negative) Urine Urobilinogen (<2.0) mg/dL Ur Leukocyte Esterase (Negative) Urine Opiates Screen Not Detected (NotDetected) Ur Oxycodone Screen Not Detected (NotDetected) Urine Methadone Screen Not Detected (NotDetected) Ur Propoxyphene Screen Not Detected (NotDetected) Ur Barbiturates Screen Not Detected (NotDetected) U Tricyclic Antidepress Not Detected (NotDetected) Ur Phencyclidine Scrn Not Detected (NotDetected) Ur Amphetamines Screen Detected H (NotDetected) U Methamphetamines Scrn Detected H (NotDetected) U Benzodiazepines Scrn Not Detected (NotDetected) Urine Cocaine Screen Not Detected (NotDetected) U Marijuana (THC) Screen Not Detected (NotDetected) Serum Alcohol mg/dL Disposition Clinical Impression: Alcohol intoxication Disposition: HOME SELF-CARE Condition: Fair Instructions (If sedation given, give patient instructions): Alcohol Intoxication (DC) Is patient prescribed a controlled substance at d/c from ED?: No Referrals: Kristal Musa MD [Primary Care Provider] - 1-2 days
[2021-10-10 03:18] VITALS: BP 148/88; PULSE 88; RESP 22
[2021-10-10 04:05] LABS: Amphetamine Screen,Urine Detected (NotDetected); Barbiturate Screen,Urine Not Detected (NotDetected); Benzodiazepines Screen,Urine Not Detected (NotDetected); Cocaine Screen,Urine Not Detected (NotDetected); Methadone Screen, Urine Not Detected (NotDetected); Opiate Screen,Urine Not Detected (NotDetected); Oxycodone Screen, Urine Not Detected (NotDetected); Phencyclidine Screen,Urine Not Detected (NotDetected); Tricyclic Antidepressant,Urine Not Detected (NotDetected); Urn Cannabinoid Scrn Not Detected (NotDetected)
== END 2021-10-10 03:18 | disposition home or self-care (01) ==
LOC: EC 00:18
DX: F10.129 Alcohol abuse with intoxication, unspecified (principal); F17.200 Nicotine dependence, unspecified, uncomplicated
CPT/HCPCS: 51798; 36415; 80053; 83735; 85025; 81003; 80306; 99285; 96360; 96361; G0480; 80320

== ENCOUNTER 2022-09-16 08:58 | Emergency (ER) | payer OTHER ==
[2022-09-16 09:07] VITALS: TEMP 98
[2022-09-16] MEDS ORDERED: MORPHINE SULFATE 4 MG/ML SYRINGE IM STA (09:13)
[2022-09-16] MEDS ORDERED: LIDOCAINE 5% PATCH TOPICAL STA (09:13)
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
--- NOTE | 2022-09-16 10:26 | CT ---
EXAMINATION TYPE: CT chest wo con DATE OF EXAM: 09/16/2022 COMPARISON: None HISTORY: sternal chest pain after fall CT DLP: 329.7 mGycm, Automated exposure control for dose reduction was used. CONTRAST: Performed injected with 0 mL of Isovue 300. TECHNIQUE: Axial images were obtained at 5 mm thick sections. Reconstructed images are reviewed on [employer] computer in the coronal plane. FINDINGS: Portion of the thyroid visualized is normal. No suspicious lung nodules or focal infiltrates are present. Minimal compressive atelectasis in the p osterior right lung base may be some mild atelectasis. No enlarged mediastinal or hilar adenopathy is evident. The ascending aorta diameter at the level o f the main pulmonary artery is 4.0 cm. The main pulmonary artery diameter at the bifurcation is 2.7 cm. Coronary artery calcification is present. Small hiatal hernia is present. Osseous structures appear unremarkable. Sternal appears intact. Manubrium appears intact. No acute fr acture is identified. Retrosternal space appears normal. Follow up exams can be performed as clinical ly indicated Limited CT sections are obtained through the upper abdomen. Abdomen is essentially unremarkable. IMPRESSIONS: 1. No acute pulmonary process CT chest. 2. No acute fracture identified, follow-up can be performed as clinically indicated
[2022-09-16] MEDS ORDERED: ACET/COD 300 MG/30 MG STARTER PACK 6 TAB BTL PO STA (10:40)
[2022-09-16 11:05] VITALS: BP 120/80; PULSE 72; RESP 17
== END 2022-09-16 11:02 | disposition home or self-care (01) ==
LOC: EC 08:58
DX: S20.219A Contusion of unspecified front wall of thorax, initial encounter (principal); I25.2 Old myocardial infarction; F17.200 Nicotine dependence, unspecified, uncomplicated; V19.9XXA Pedal cyclist (driver) (passenger) injured in unspecified traffic accident, initial encounter; Y93.55 Activity, bike riding
CPT/HCPCS: 71250; 99284; 96372; J2270

== ENCOUNTER 2023-02-04 10:30 | Emergency (ER) | payer OTHER ==
[2023-02-04 10:38] VITALS: RESP 18; TEMP 98.1
[2023-02-04] MEDS ORDERED: KETOROLAC 15 MG/ML 1 ML VIAL IVP STA (10:42)
[2023-02-04] MEDS ORDERED: LIDOCAINE 4% PATCH TOPICAL ONE (10:42)
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
--- NOTE | 2023-02-04 11:43 | XR ---
EXAMINATION TYPE: XR ribs RT w pa chest xray DATE OF EXAM: 02/04/2023 11:20 AM CLINICAL INDICATION:Male, 63 years old with history of Pain after fall; [facility] COMPARISON: 10/16/2019. TECHNIQUE: XR ribs RT w pa chest xray; Frontal and oblique views of the ribs with frontal chest radio graph. FINDINGS: Heart is enlarged for size. Right-sided rib clinical irregularities involving right ribs 7 and 8. IMPRESSION: 1. Right rib 7 and 8 cortical step-off suggesting fracture correlate with point tenderness. 2. Cardiomegaly correlate with serum BNP for congestive heart failure.
--- NOTE | 2023-02-04 11:45 | XR ---
EXAMINATION TYPE: XR thoracic spine complete DATE OF EXAM: 02/04/2023 11:20 AM CLINICAL INDICATION:Male, 63 years old with history of Pain after fall; [facility] COMPARISON: None TECHNIQUE: XR thoracic spine complete views of the thoracic spine in Frontal and lateral projections. FINDINGS: No evidence of acute fracture. There is scattered multilevel disk space narrowing without loss of ve rtebral body height. There is normal alignment of the thoracic vertebral bodies. Scattered osteophyte formation along the anterior and lateral aspects of the vertebral bodies. Neural foramen are patent given limitations of this exam. Spinal canal appears patent. IMPRESSION: No acute osseous pathology. Mild amount degeneration changes throughout the spine.
[2023-02-04] MEDS ORDERED: IBUPROFEN 600 MG STARTER PACK 4 TAB BTL PO STA (12:29)
[2023-02-04] MEDS ORDERED: ACET/COD 300 MG/30 MG STARTER PACK 6 TAB BTL PO STA (12:29)
[2023-02-04 13:22] VITALS: BP 122/75; PULSE 84
== END 2023-02-04 13:12 | disposition home or self-care (01) ==
LOC: EC 10:30
DX: S09.90XA Unspecified injury of head, initial encounter (principal); S22.41XA Multiple fractures of ribs, right side, initial encounter for closed fracture; F17.200 Nicotine dependence, unspecified, uncomplicated; V00.831A Fall from motorized mobility scooter, initial encounter
CPT/HCPCS: 71101; 72072; 99284; 96374; J1885

== ENCOUNTER 2023-04-05 23:50 | Emergency (ER) | payer OTHER ==
[2023-04-06] VITALS: RESP 18; TEMP 97.6
--- NOTE | 2023-04-06 00:32 | ED ---
Overdose HPI - General Chief Complaint: Overdose Stated Complaint: Possible Overdose Time Seen by Provider: 04/05/23 23:55 Source: patient, RN notes reviewed, old records reviewed Mode of arrival: EMS Limitations: no limitations - History of Present Illness Initial Comments: This is a 60-year-old male to ER for evaluation of overdose. Patient was found to be unresponsive with a decreased level of responsiveness and presents to the ER to those conditions. Patient is in no acute distress feels well and was given Mar DUNCAN Complaint: intentional overdose, accidental overdose -: hour(s) Intent: unwilling to say How Overdose Was Discovered: called family/friend Context: Accidental Overdose: wanted to get high Treatments Prior to Arrival: none - Related Data Home Medications Medication Instructions Recorded Confirmed methocarbamoL [Robaxin] 750 mg PO TID 11/21/19 11/21/19 Previous Rx's Medication Instructions Recorded Ibuprofen [Motrin] 800 mg PO Q8H PRN #30 tab 02/04/23 Lidocaine 5% Patch [Lidoderm 5% 1 patch TOPICAL DAILY PRN #30 patch 02/04/23 Patch] methocarbamoL [Robaxin-750] 1,500 mg PO TID PRN #30 tab 02/04/23 Allergies Allergy/AdvReac Type Severity Reaction Status Date / Time No Known Allergies Allergy Verified 04/05/23 23:56 Review of Systems ROS Statement: Those systems with pertinent positive or pertinent negative responses have been documented in the HPI. ROS Other: All systems not noted in ROS Statement are negative. Past Medical History Past Medical History: No Reported History Additional Past Medical History / Comment(s): hard of hearing Last Myocardial Infarction Date:: Alcoholism, Possible seizure history, likely related to alcohol withdrawal, History of Any Multi-Drug Resistant Organisms: None Reported Past Surgical History: No Surgical Hx Reported Past Psychological History: No Psychological Hx Reported Smoking Status: Current every day smoker Past Alcohol Use History: Daily, Heavy Past Drug Use History: None Reported - Past Family History Father Additional Family Medical History / Comment(s): Difficult to obtain, the patient does not have any children, history of cancer and one sibling, one with CAD, one of his parents from CAD. General Exam General appearance: alert, in no apparent distress, anxious Head exam: Present: atraumatic, normocephalic, normal inspection Eye exam: Present: normal appearance, PERRL, EOMI. Absent: scleral icterus, conjunctival injection, periorbital swelling ENT exam: Present: normal exam, mucous membranes moist Neck exam: Present: normal inspection. Absent: tenderness, meningismus, lymphadenopathy Respiratory exam: Present: normal lung sounds bilaterally. Absent: respiratory distress, wheezes, rales, rhonchi, stridor Cardiovascular Exam: Present: regular rate, normal rhythm, normal heart sounds. Absent: systolic murmur, diastolic murmur, rubs, gallop, clicks GI/Abdominal exam: Present: soft, normal bowel sounds. Absent: distended, tenderness, guarding, rebound, rigid Extremities exam: Present: normal inspection, full ROM, normal capillary refill. Absent: tenderness, pedal edema, joint swelling, calf tenderness Back exam: Present: normal inspection Neurological exam: Present: alert, oriented X3, CN II-XII intact Psychiatric exam: Present: normal affect, normal mood Skin exam: Present: warm, dry, intact, normal color. Absent: rash Course Vital Signs 04/05/23 04/06/23 04/06/23 23:52 00:03 00:30 Temperature 97.6 F Pulse Rate 81 87 80 Respiratory 18 18 18 Rate Blood Pressure 112/70 134/95 O2 Sat by Pulse 92 L 94 L 98 Oximetry 04/06/23 04/06/23 01:00 02:00 Temperature Pulse Rate 80 78 Respiratory 18 18 Rate Blood Pressure 107/73 124/80 O2 Sat by Pulse 98 98 Oximetry - Reevaluation(s) Reevaluation #1: Medical records reviewed Reevaluation #2: Patient symptoms improved Reevaluation #3: Patient informed of results questions answered Reevaluation #4: Was pt. sent in by a medical professional or institution (, PA, CIVIL SERVICE CLERK, urgent care, hospital, or assisted...) When possible be specific @ -no Did you speak to anyone other than the patient for history (EMS, parent, family, police, friend...)? What history was obtained from this source @ -no Did you review nursing and triage notes (agree or disagree)? Why? @ -agree Are old charts reviewed (outside hosp., previous admission, EMS record, old EKG, old radiological studies, urgent care reports/EKG's, assisted records)? Report findings @ -yes Differential Diagnosis (chest pain, altered mental status, abdominal pain women, abdominal pain men, vaginal bleeding, weakness, fever, dyspnea, syncope, headache, dizziness, GI bleed, back pain, seizure, CVA, palpatations, mental health, musculoskeletal)? @ -prior EKG interpreted by me (3pts min.). @ -yes X-rays interpreted by me (1pt min.). @ -no CT interpreted by me (1pt min.). @ -no U/S interpreted by me (1pt. min.). @ -no What testing was considered but not performed or refused? (CT, X-rays, U/S, labs)? Why? @ -none What meds were considered but not given or refused? Why? @ -none Did you discuss the management of the patient with other professionals (professionals i.e. , PA, CIVIL SERVICE CLERK, lab, RT, psych nurse, director social service, eyeglass frames inspector, teacher, chief privacy officer, case resolution specialist)? Give summary @ -no Was smoking cessation discussed for >3mins.? @ -no Was critical care preformed (if so, how long)? @ -no Were there social determinants of health that impacted care today? How? (Homelessness, low income, unemployed, alcoholism, drug addiction, transportation, low edu. Level, literacy, decrease access to med. care, retirement, rehab)? @ -none Was there de-escalation of care discussed even if they declined (Discuss DNR or withdrawal of care, Hospice)? DNR status @ -no What co-morbidities impacted this encounter? (DM, HTN, Smoking, COPD, CAD, Cancer, CVA, ARF, Chemo, Hep., AIDS, mental health diagnosis, sleep apnea, morbid obesity)? @ -none Was patient admitted / discharged? Hospital course, mention meds given and route, prescriptions, significant lab abnormalities, going to OR and other pertinent info. @ - 63 male with overdose given Narcan, patient continues to improve here in the ER awake and alert and prefers discharge home at this time is failing to state if he took heroin or not but has no complaints otherwise is awake and alert and can be discharged home Discharge Undiagnosed new problem with uncertain prognosis? @ -no Drug Therapy requiring intensive monitoring for toxicity (Heparin, Nitro, Insulin, Cardizem)? @ -no Were any procedures done? @ -no Diagnosis/symptom? @ -Acute accidental overdose Acute, or Chronic, or Acute on Chronic? @ -Acute Uncomplicated (without systemic symptoms) or Complicated (systemic symptoms)? @ -Complicated Side effects of treatment? @ -no Exacerbation, Progression, or Severe Exacerbation? @ -exacerbation Poses a threat to life or bodily function? How? (Chest pain, USA, ME, pneumonia, PE, COPD, DKA, ARF, appy, cholecystitis, CVA, Diverticulitis, Homicidal, Suici sandra, threat to staff... and all critical care pts) @ -yes with overdose Reevaluation #5: Differential Altered Mental Status: Hypoglycemia, DKA, hypercapnia, ETOH, overdose, CO poisoning, trauma, myxedema coma, HTN encephalopathy, infection, encephalitis, psychosis, intercranial hemorrhage, hepatic encephalopathy, meningitis, CVA, this is not meant to be an all-inclusive list Medical Decision Making - Medical Decision Making 63 male with overdose given Narcan, patient continues to improve here in the ER awake and alert and prefers discharge home at this time is failing to state if he took heroin or not but has no complaints otherwise is awake and alert and can be discharged home - Lab Data Result diagrams: 04/06/23 00:42 04/06/23 00:42 Lab Results 04/06/23 04/06/23 04/06/23 Range/Units 00:42 00:42 00:42 WBC 7.5 (3.8-10.6) k/uL RBC 3.14 L (4.30-5.90) m/uL Hgb 10.5 L (13.0-17.5) gm/dL Hct 31.3 L (39.0-53.0) % MCV 99.5 (80.0-100.0) fL MCH 33.4 (25.0-35.0) pg MCHC 33.5 (31.0-37.0) g/dL RDW 15.8 H (11.5-15.5) % Plt Count 177 (150-450) k/uL MPV 7.9 Neutrophils % 58 % Lymphocytes % 29 % Monocytes % 6 % Eosinophils % 4 % Basophils % 1 % Neutrophils # 4.3 (1.3-7.7) k/uL Lymphocytes # 2.2 (1.0-4.8) k/uL Monocytes # 0.4 (0-1.0) k/uL Eosinophils # 0.3 (0-0.7) k/uL Basophils # 0.0 (0-0.2) k/uL Macrocytosis Slight PT 10.0 (10.0-12.5) sec INR 0.9 (<1.2) APTT 22.2 (22.0-30.0) sec Sodium 140 (137-145) mmol/L Potassium 3.9 (3.5-5.1) mmol/L Chloride 109 H (98-107) mmol/L Carbon Dioxide 17 L (22-30) mmol/L Anion Gap 14 mmol/L BUN 19 (9-20) mg/dL Creatinine 2.38 H (0.66-1.25) mg/dL Est GFR (CKD-EPI)AfAm 32 (>60 ml/min/1.73 sqM) Est GFR (CKD-EPI)NonAf 28 (>60 ml/min/1.73 sqM) Glucose 123 H (74-99) mg/dL Lactic Ac Sepsis Rflx Plasma Lactic Acid Swapnil (0.7-2.0) mmol/L Calcium 8.5 (8.4-10.2) mg/dL Phosphorus 3.7 (2.5-4.5) mg/dL Magnesium 2.1 (1.6-2.3) mg/dL Total Bilirubin 0.3 (0.2-1.3) mg/dL AST 50 (17-59) U/L ALT 47 (4-49) U/L Alkaline Phosphatase 96 (38-126) U/L Troponin I (0.000-0.034) ng/mL Total Protein 7.4 (6.3-8.2) g/dL Albumin 4.0 (3.5-5.0) g/dL Urine Color Urine Appearance (Clear) Urine pH (5.0-8.0) Ur Specific [place] (1.001-1.035) Urine Protein (Negative) Urine Glucose (UA) (Negative) Urine Ketones (Negative) Urine Blood (Negative) Urine Nitrite (Negative) Urine Bilirubin (Negative) Urine Urobilinogen (<2.0) mg/dL Ur Leukocyte Esterase (Negative) Urine RBC (0-5) /hpf Urine WBC (0-5) /hpf Ur Squamous Epith Cells (0-4) /hpf Urine Mucus (None) /hpf Urine Opiates Screen (NotDetected) Ur Oxycodone Screen (NotDetected) Urine Methadone Screen (NotDetected) Ur Barbiturates Screen (NotDetected) U Tricyclic Antidepress (NotDetected) Ur Phencyclidine Scrn (NotDetected) Ur Amphetamines Screen (NotDetected) U Methamphetamines Scrn (NotDetected) U Benzodiazepines Scrn (NotDetected) Urine Cocaine Screen (NotDetected) U Marijuana (THC) Screen (NotDetected) 04/06/23 04/06/23 04/06/23 Range/Units 00:42 00:42 01:52 WBC (3.8-10.6) k/uL RBC (4.30-5.90) m/uL Hgb (13.0-17.5) gm/dL Hct (39.0-53.0) % MCV (80.0-100.0) fL MCH (25.0-35.0) pg MCHC (31.0-37.0) g/dL RDW (11.5-15.5) % Plt Count (150-450) k/uL MPV Neutrophils % % Lymphocytes % % Monocytes % % Eosinophils % % Basophils % % Neutrophils # (1.3-7.7) k/uL Lymphocytes # (1.0-4.8) k/uL Monocytes # (0-1.0) k/uL Eosinophils # (0-0.7) k/uL Basophils # (0-0.2) k/uL Macrocytosis PT (10.0-12.5) sec INR (<1.2) APTT (22.0-30.0) sec Sodium (137-145) mmol/L Potassium (3.5-5.1) mmol/L Chloride (98-107) mmol/L Carbon Dioxide (22-30) mmol/L Anion Gap mmol/L BUN (9-20) mg/dL Creatinine (0.66-1.25) mg/dL Est GFR (CKD-EPI)AfAm (>60 ml/min/1.73 sqM) Est GFR (CKD-EPI)NonAf (>60 ml/min/1.73 sqM) Glucose (74-99) mg/dL Lactic Ac Sepsis Rflx Plasma Lactic Acid Swapnil 2.7 H* (0.7-2.0) mmol/L Calcium (8.4-10.2) mg/dL Phosphorus (2.5-4.5) mg/dL Magnesium (1.6-2.3) mg/dL Total Bilirubin (0.2-1.3) mg/dL AST (17-59) U/L ALT (4-49) U/L Alkaline Phosphatase (38-126) U/L Troponin I <0.012 (0.000-0.034) ng/mL Total Protein (6.3-8.2) g/dL Albumin (3.5-5.0) g/dL Urine Color Colorless Urine Appearance Clear (Clear) Urine pH 6.0 (5.0-8.0) Ur Specific [place] 1.018 (1.001-1.035) Urine Protein 1+ H (Negative) Urine Glucose (UA) Negative (Negative) Urine Ketones Negative (Negative) Urine Blood Moderate H (Negative) Urine Nitrite Negative (Negative) Urine Bilirubin Negative (Negative) Urine Urobilinogen <2.0 (<2.0) mg/dL Ur Leukocyte Esterase Negative (Negative) Urine RBC 1 (0-5) /hpf Urine WBC 3 (0-5) /hpf Ur Squamous Epith Cells <1 (0-4) /hpf Urine Mucus Rare H (None) /hpf Urine Opiates Screen Not Detected (NotDetected) Ur Oxycodone Screen Not Detected (NotDetected) Urine Methadone Screen Not Detected (NotDetected) Ur Barbiturates Screen Not Detected (NotDetected) U Tricyclic Antidepress Not Detected (NotDetected) Ur Phencyclidine Scrn Not Detected (NotDetected) Ur Amphetamines Screen Detected H (NotDetected) U Methamphetamines Scrn Detected H (NotDetected) U Benzodiazepines Scrn Detected H (NotDetected) Urine Cocaine Screen Not Detected (NotDetected) U Marijuana (THC) Screen Not Detected (NotDetected) 04/06/23 Range/Units 02:51 WBC (3.8-10.6) k/uL RBC (4.30-5.90) m/uL Hgb (13.0-17.5) gm/dL Hct (39.0-53.0) % MCV (80.0-100.0) fL MCH (25.0-35.0) pg MCHC (31.0-37.0) g/dL RDW (11.5-15.5) % Plt Count (150-450) k/uL MPV Neutrophils % % Lymphocytes % % Monocytes % % Eosinophils % % Basophils % % Neutrophils # (1.3-7.7) k/uL Lymphocytes # (1.0-4.8) k/uL Monocytes # (0-1.0) k/uL Eosinophils # (0-0.7) k/uL Basophils # (0-0.2) k/uL Macrocytosis PT (10.0-12.5) sec INR (<1.2) APTT (22.0-30.0) sec Sodium (137-145) mmol/L Potassium (3.5-5.1) mmol/L Chloride (98-107) mmol/L Carbon Dioxide (22-30) mmol/L Anion Gap mmol/L BUN (9-20) mg/dL Creatinine (0.66-1.25) mg/dL Est GFR (CKD-EPI)AfAm (>60 ml/min/1.73 sqM) Est GFR (CKD-EPI)NonAf (>60 ml/min/1.73 sqM) Glucose (74-99) mg/dL Lactic Ac Sepsis Rflx Y Plasma Lactic Acid Swapnil (0.7-2.0) mmol/L Calcium (8.4-10.2) mg/dL Phosphorus (2.5-4.5) mg/dL Magnesium (1.6-2.3) mg/dL Total Bilirubin (0.2-1.3) mg/dL AST (17-59) U/L ALT (4-49) U/L Alkaline Phosphatase (38-126) U/L Troponin I (0.000-0.034) ng/mL Total Protein (6.3-8.2) g/dL Albumin (3.5-5.0) g/dL Urine Color Urine Appearance (Clear) Urine pH (5.0-8.0) Ur Specific [place] (1.001-1.035) Urine Protein (Negative) Urine Glucose (UA) (Negative) Urine Ketones (Negative) Urine Blood (Negative) Urine Nitrite (Negative) Urine Bilirubin (Negative) Urine Urobilinogen (<2.0) mg/dL Ur Leukocyte Esterase (Negative) Urine RBC (0-5) /hpf Urine WBC (0-5) /hpf Ur Squamous Epith Cells (0-4) /hpf Urine Mucus (None) /hpf Urine Opiates Screen (NotDetected) Ur Oxycodone Screen (NotDetected) Urine Methadone Screen (NotDetected) Ur Barbiturates Screen (NotDetected) U Tricyclic Antidepress (NotDetected) Ur Phencyclidine Scrn (NotDetected) Ur Amphetamines Screen (NotDetected) U Methamphetamines Scrn (NotDetected) U Benzodiazepines Scrn (NotDetected) Urine Cocaine Screen (NotDetected) U Marijuana (THC) Screen (NotDetected) - EKG Data -: EKG Interpreted by Me (EKG is sinus 98 IL 149 QRS 94 QTc 417) Disposition Clinical Impression: Accidental drug overdose, Drug overdose Disposition: HOME SELF-CARE Condition: Fair Instructions (If sedation given, give patient instructions): Adult Overdose (ED) Is patient prescribed a controlled substance at d/c from ED?: No Referrals: None,Stated [Primary Care Provider] - 1-2 days Time of Disposition: 02:00
[2023-04-06] MEDS: SODIUM CHLORIDE 0.9% 1,000 ML IV STA (00:41)
[2023-04-06 00:57] LABS: Basophils % (A) 1 %; Eosinophils # (A) 0.3 k/uL (0-0.7); Eosinophils % (A) 4 %; HCT 31.3 % (39.0-53.0); HGB 10.5 gm/dL (13.0-17.5); Lymphocytes # (A) 2.2 k/uL (1.0-4.8); Lymphocytes % (A) 29 %; MCH 33.4 pg (25.0-35.0); MCHC 33.5 g/dL (31.0-37.0); MCV 99.5 fL (80.0-100.0); Macrocytosis Slight; Mean Platelet Volume 7.9; Monocytes # (A) 0.4 k/uL (0-1.0); Monocytes % (A) 6 %; Neutrophils # (A) 4.3 k/uL (1.3-7.7); Neutrophils % (A) 58 %; Platelet Count 177 k/uL (150-450); RBC 3.14 m/uL (4.30-5.90); RDW 15.8 % (11.5-15.5); WBC 7.5 k/uL (3.8-10.6)
[2023-04-06 01:09] LABS: ALT 47 U/L (4-49); AST 50 U/L (17-59); African American GFR (CKD) 32 (>60 ml/min/1.73 sqM); Alkaline Phosphatase 96 U/L (38-126); Anion Gap 14 mmol/L; Blood Urea Nitrogen 19 mg/dL (9-20); Calcium 8.5 mg/dL (8.4-10.2); Carbon Dioxide 17 mmol/L (22-30); Chloride 109 mmol/L (98-107); Glucose 123 mg/dL (74-99); Magnesium 2.1 mg/dL (1.6-2.3); Non-African American GFR(CKD) 28 (>60 ml/min/1.73 sqM); Phosphorus 3.7 mg/dL (2.5-4.5); Potassium 3.9 mmol/L (3.5-5.1); Sodium 140 mmol/L (137-145); Total Bilirubin 0.3 mg/dL (0.2-1.3); Total Protein 7.4 g/dL (6.3-8.2)
[2023-04-06 01:16] LABS: INR 0.9 (<1.2); Partial Thromboplastin Time 22.2 sec (22.0-30.0)
[2023-04-06 02:13] LABS: Appearance,Urine Clear (Clear); Bilirubin,Urine Negative (Negative); Blood,Urine Moderate (Negative); Color,Urine Colorless; Glucose,Urine (UA) Negative (Negative); Ketones,Urine Negative (Negative); Leukocyte Esterase,Urine Negative (Negative); Mucus,Urine Rare /hpf; Nitrite,Urine Negative (Negative); Protein,Urine 1+ (Negative); RBC,Urine 1 /hpf (0-5); Specific Gravity,Urine 1.018 (1.001-1.035); Squamous Epithelial Cell,Urine <1 /hpf (0-4); Urobilinogen,Urine <2.0 mg/dL (<2.0); WBC,Urine 3 /hpf (0-5)
[2023-04-06 02:36] LABS: Amphetamine Screen,Urine Detected (NotDetected); Barbiturate Screen,Urine Not Detected (NotDetected); Benzodiazepines Screen,Urine Detected (NotDetected); Cocaine Screen,Urine Not Detected (NotDetected); Methadone Screen, Urine Not Detected (NotDetected); Opiate Screen,Urine Not Detected (NotDetected); Oxycodone Screen, Urine Not Detected (NotDetected); Phencyclidine Screen,Urine Not Detected (NotDetected); Tricyclic Antidepressant,Urine Not Detected (NotDetected); Urn Cannabinoid Scrn Not Detected (NotDetected)
[2023-04-06 02:48] VITALS: BP 124/80; PULSE 78
== END 2023-04-06 02:35 | disposition home or self-care (01) ==
LOC: EC 23:50
DX: T50.7X1A Poisoning by analeptics and opioid receptor antagonists, accidental (unintentional), initial encounter (principal); I25.2 Old myocardial infarction; F17.200 Nicotine dependence, unspecified, uncomplicated
CPT/HCPCS: 36415; 80053; 80306; 81001; 83605; 83735; 84100; 84484; 85025; 85610; 85730; 93005; 96360; 99284

== ENCOUNTER 2023-10-22 17:34 | Emergency (ER) | payer OTHER ==
[2023-10-22 17:54] VITALS: TEMP 98
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
[2023-10-22] MEDS: HYDROcodone/APAP 5-325MG 1 EACH TAB PO STA (20:05)
[2023-10-22 20:30] VITALS: BP 148/83; PULSE 64; RESP 16
== END 2023-10-22 20:19 | disposition home or self-care (01) ==
LOC: EC 17:34
DX: S22.31XA Fracture of one rib, right side, initial encounter for closed fracture (principal); F17.200 Nicotine dependence, unspecified, uncomplicated; V18.0XXA Pedal cycle driver injured in noncollision transport accident in nontraffic accident, initial encounter; Y93.55 Activity, bike riding
CPT/HCPCS: 99283

== ENCOUNTER 2024-07-27 00:32 | Emergency (ER) | payer OTHER ==
[2024-07-27 00:40] VITALS: RESP 18
[2024-07-27] MEDS: HYDROcodone/APAP 5-325MG 1 EACH TAB PO STA (03:10)
[2024-07-27] MEDS: SULFAMETHOX-TMP 800-160MG 1 EACH TAB PO STA (03:10)
--- NOTE | 2024-07-27 05:13 | ED ---
General Adult HPI - General Chief complaint: Recheck/Abnormal Lab/Rx Stated complaint: L Foot Swelling Time Seen by Provider: 07/27/24 00:57 Source: family Mode of arrival: wheelchair Limitations: no limitations - History of Present Illness Initial comments: This patient is a 64-year-old man with 2 to 3 days of left lower extremity swelling and pain. Patient states that he did not have a known injury. He describes as aching pain. Things are worse when he is up walking on the leg. He has not had chest pain, palpitations, dyspnea. No history of DVT. Patient has not noted fever or chills. Onset/Timin -: days(s) Location: left, lower extremity Quality: aching Consistency: constant Improves with: none Worsens with: movement Associated Symptoms: denies other symptoms Treatments Prior to Arrival: none - Related Data Home Medications Medication Instructions Recorded Confirmed Omeprazole 40 mg PO DAILY PRN 08/05/24 08/05/24 Sulfamethox-Tmp 800-160Mg [Bactrim 2 tab PO Q12HR 08/05/24 08/05/24 Ds] Allergies Allergy/AdvReac Type Severity Reaction Status Date / Time No Known Allergies Allergy Verified 08/05/24 12:06 Review of Systems ROS Statement: Those systems with pertinent positive or pertinent negative responses have been documented in the HPI. ROS Other: All systems not noted in ROS Statement are negative. Constitutional: Denies: fever, chills, weakness Respiratory: Denies: cough, dyspnea, hemoptysis Cardiovascular: Denies: chest pain, palpitations Gastrointestinal: Denies: abdominal pain, vomiting Genitourinary: Denies: dysuria Skin: Denies: rash Neurological: Denies: headache, weakness, numbness Past Medical History Past Medical History: No Reported History Additional Past Medical History / Comment(s): hard of hearing Last Myocardial Infarction Date:: Alcoholism, Possible seizure history, likely related to alcohol withdrawal, History of Any Multi-Drug Resistant Organisms: None Reported Past Surgical History: No Surgical Hx Reported Past Psychological History: No Psychological Hx Reported Smoking Status: Current every day smoker Past Alcohol Use History: Daily, Heavy Past Drug Use History: None Reported - Past Family History Father Additional Family Medical History / Comment(s): Difficult to obtain, the patient does not have any children, history of cancer and one sibling, one with CAD, one of his parents from CAD. General Exam General appearance: alert, in no apparent distress Head exam: Present: atraumatic, normocephalic Respiratory exam: Present: normal lung sounds bilaterally. Absent: respiratory distress, wheezes, rales, rhonchi, stridor, accessory muscle use Cardiovascular Exam: Present: regular rate, normal rhythm, normal heart sounds. Absent: systolic murmur, diastolic murmur, rubs, gallop GI/Abdominal exam: Present: soft. Absent: distended, tenderness, guarding Extremities exam: Present: full ROM, normal capillary refill, pedal edema. Absent: calf tenderness Neurological exam: Present: alert. Absent: motor sensory deficit Skin exam: Present: warm, dry, erythema. Absent: rash Course Vital Signs 07/27/24 07/27/24 07/27/24 00:36 03:40 06:02 Temperature 98.1 F 97.9 F Pulse Rate 79 79 81 Respiratory 18 18 18 Rate Blood Pressure 137/80 134/78 141/79 O2 Sat by Pulse 99 98 97 Oximetry Medical Decision Making - Medical Decision Making The patient had duplex Doppler of the lower extremity that I interpreted as negative for acute DVT Patient is 64-year-old man here with leg pain. On the exam he does appear to have early cellulitis. The patient did have duplex Doppler, which does not show presence of DVT. The patient started on antibiotics, we discussed appropriate further care and follow-up as well as return parameters Was pt. sent in by a medical professional or institution (RASHEEDA Farrell, MOLD BURNER, urgent care, hospital, or retirement...) When possible be specific @ -[No] Did you speak to anyone other than the patient for history (EMS, parent, family, police, friend...)? What history was obtained from this source @ -[No] Did you review nursing and triage notes (agree or disagree)? Why? @ -[I reviewed and agree with nursing and triage notes] Were old charts reviewed (outside hosp., previous admission, EMS record, old EKG, old radiological studies, urgent care reports/EKG's, retirement records)? Report findings @ -[No old charts were reviewed] Differential Diagnosis (chest pain, altered mental status, abdominal pain women, abdominal pain men, vaginal bleeding, weakness, fever, dyspnea, syncope, headache, dizziness, GI bleed, back pain, seizure, CVA, palpatations, mental health, musculoskeletal)? @ -Differential Musculoskeletal Muscular strain, contusion, ligament sprain, fracture, arthritis, septic arthritis, bursitis, cellulitis, muscle spasm, nerve compression, DVT, arterial occlusion, herpes zoster, electrolyte abnormality, tumor.... This is not meant to be in all inclusive list EKG interpreted by me (3pts min.). @ -[As above] X-rays interpreted by me (1pt min.). @ -[None done] CT interpreted by me (1pt min.). @ -[None done] U/S interpreted by me (1pt. min.). @ -[I interpreted as above What testing was considered but not performed or refused? (CT, X-rays, U/S, labs)? Why? @ -[None] What meds were considered but not given or refused? Why? @ -[None] Did you discuss the management of the patient with other professionals (professionals i.e. , PA, MOLD BURNER, lab, RT, psych nurse, social security specialist, documentation analyst, teacher, law enforcement officer, upper caser)? Give summary @ -[No] Was smoking cessation discussed for >3mins.? @ -[No] Was critical care preformed (if so, how long)? @ -[No] Were there social determinants of health that impacted care today? How? (Homelessness, low income, unemployed, alcoholism, drug addiction, transportation, low edu. Level, literacy, decrease access to med. care, halfway, rehab)? @ -[No] Was there de-escalation of care discussed even if they declined (Discuss DNR or withdrawal of care, Hospice)? DNR status @ -[No] What co-morbidities impacted this encounter? (DM, HTN, Smoking, COPD, CAD, Cancer, CVA, ARF, Chemo, Hep., AIDS, mental health diagnosis, sleep apnea, morbid obesity)? @ -[None] Was patient admitted / discharged? Hospital course, mention meds given and route, prescriptions, significant lab abnormalities, going to OR and other pertinent info. @ -[As above Undiagnosed new problem with uncertain prognosis? @ -[No] Drug Therapy requiring intensive monitoring for toxicity (Heparin, Nitro, Insulin, Cardizem)? @ -[No] Were any procedures done? @ -[No] Diagnosis/symptom? @ -[Acute cellulitis of the lower extremity Acute, or Chronic, or Acute on Chronic? @ -[Acute Uncomplicated (without systemic symptoms) or Complicated (systemic symptoms)? @ -[Uncomplicated Side effects of treatment? @ -[No] Exacerbation, Progression, or Severe Exacerbation? @ -[No] Poses a threat to life or bodily function? How? (Chest pain, [place], [place], pneumonia, PE, COPD, DKA, ARF, appy, cholecystitis, CVA, Diverticulitis, Homicidal, Suicidal, threat to staff... and all critical care pts) @ -[There is small risk of worsening infection progressing to sepsis/ patient to have close follow-up All treatments are based on ideal body weight as in ED triage Disposition Clinical Impression: Cellulitis Disposition: HOME SELF-CARE Condition: Good Instructions (If sedation given, give patient instructions): Cellulitis (ED) Is patient prescribed a controlled substance at d/c from ED?: Yes When asked, does pt state using other controlled substances?: No If prescribed controlled substance>3 days was MAPS reviewed?: Prescribed <3 Days If opioid is for acute pain is fill amount 7 days or less?: Yes If Rx opioid, was Start Talking consent form obtained?: Yes Referrals: None,Stated [Primary Care Provider] - 1-2 days
[2024-07-27 06:05] VITALS: BP 141/79; PULSE 81; TEMP 97.9
--- NOTE | 2024-07-27 06:48 | US ---
EXAM: US Duplex Left Lower Extremity Veins CLINICAL HISTORY: ITS.REASON US Reason: pain/swelling, possible DVT TECHNIQUE: Real-time duplex ultrasound scan of the left lower extremity veins integrating B-mode two-dimensional vascular structure, Doppler spectral analysis, color flow Doppler imaging and compression. COMPARISON: No relevant prior studies available. FINDINGS: Deep veins: Unremarkable. No DVT in the visualized common femoral, femoral, proximal deep femoral or popliteal veins. The veins demonstrate normal color flow, are normally compressible, with normal phasic flow and/or augmentation response. Superficial veins: Unremarkable. No thrombus in the visualized great saphenous vein. Soft tissues: No acute findings. No popliteal cyst. IMPRESSION: Normal left lower extremity duplex venous ultrasound.
== END 2024-07-27 06:05 | disposition home or self-care (01) ==
LOC: EC 00:32
DX: L03.116 Cellulitis of left lower limb (principal); F17.200 Nicotine dependence, unspecified, uncomplicated
CPT/HCPCS: 99284

== ENCOUNTER 2024-08-05 07:33 | Inpatient (IN) | payer OTHER ==
--- NOTE | 2024-08-05 08:50 | ED ---
General Adult HPI - General Chief complaint: Fall Stated complaint: Cardiac Time Seen by Provider: 08/05/24 07:42 Source: patient, EMS, RN notes reviewed, old records reviewed Mode of arrival: EMS Limitations: no limitations - History of Present Illness Initial comments: 64-year-old male presents for evaluation after a near syncopal episode. Patient states he was attempting to sit down in a chair felt very lightheaded and nearly passed out. Patient denied associated chest pain or dyspnea at the time. He reports a minor injury to the left leg but has no current pain. No abdominal pain nausea or vomiting. No fever. - Related Data Home Medications Medication Instructions Recorded Confirmed Omeprazole 40 mg PO DAILY PRN 08/05/24 08/05/24 Sulfamethox-Tmp 800-160Mg [Bactrim 2 tab PO Q12HR 08/05/24 08/05/24 Ds] Allergies Allergy/AdvReac Type Severity Reaction Status Date / Time No Known Allergies Allergy Verified 08/05/24 12:06 Review of Systems ROS Statement: Those systems with pertinent positive or pertinent negative responses have been documented in the HPI. ROS Other: All systems not noted in ROS Statement are negative. Past Medical History Past Medical History: No Reported History Additional Past Medical History / Comment(s): hard of hearing Last Myocardial Infarction Date:: Alcoholism, Possible seizure history, likely related to alcohol withdrawal, History of Any Multi-Drug Resistant Organisms: None Reported Past Surgical History: No Surgical Hx Reported Past Psychological History: No Psychological Hx Reported Smoking Status: Current every day smoker Past Alcohol Use History: Daily, Heavy Past Drug Use History: None Reported - Past Family History Father Additional Family Medical History / Comment(s): Difficult to obtain, the patient does not have any children, history of cancer and one sibling, one with CAD, one of his parents from CAD. General Exam Limitations: no limitations General appearance: alert, in no apparent distress Head exam: Present: atraumatic, normocephalic Eye exam: Present: normal appearance, PERRL ENT exam: Present: mucous membranes dry Neck exam: Present: normal inspection. Absent: tenderness, meningismus Respiratory exam: Present: decreased breath sounds. Absent: respiratory distress, wheezes Cardiovascular Exam: Present: regular rate, normal rhythm GI/Abdominal exam: Present: soft. Absent: distended, tenderness Extremities exam: Present: normal inspection, normal capillary refill. Absent: pedal edema, calf tenderness Neurological exam: Present: alert, oriented X3, CN II-XII intact. Absent: motor sensory deficit Psychiatric exam: Present: normal affect, normal mood Skin exam: Present: warm, dry, intact. Absent: cyanosis, diaphoretic Course Vital Signs 08/05/24 08/05/24 08/05/24 07:39 10:32 10:51 Temperature 97.6 F 98.1 F Pulse Rate 68 69 Pulse Rate [ 69 Emergency Dept Tech ] Respiratory 22 18 Rate Blood Pressure 126/79 139/85 O2 Sat by Pulse 93 L 96 Oximetry 08/05/24 08/05/24 11:00 12:35 Temperature 98 F 98 F Pulse Rate 74 73 Pulse Rate [ Emergency Dept Tech ] Respiratory 16 16 Rate Blood Pressure 121/93 131/84 O2 Sat by Pulse 96 96 Oximetry Medical Decision Making - Medical Decision Making Was pt. sent in by a medical professional or institution (, PA, VICE PRESIDENT OF SOFTWARE DEVELOPMENT, urgent care, hospital, or halfway...) When possible be specific @ -No Did you speak to anyone other than the patient for history (EMS, parent, family, police, friend...)? What history was obtained from this source @ -No Did you review nursing and triage notes (agree or disagree)? Why? @ -I reviewed and agree with nursing and triage notes Were old charts reviewed (outside hosp., previous admission, EMS record, old EKG, old radiological studies, urgent care reports/EKG's, halfway records)? Report findings @ -No old charts were reviewed Differential Weakness: Hypoglycemia, shock, sepsis, hyponatremia, anemia, infection, TX, ETOH, adverse medicine reaction, overdose, stroke, this is not meant to be an all-inclusive list. EKG interpreted by me (3pts min.). @Sinus rhythm with PVC rate of 72, PA interval 153, QRS duration 96, QTc [address] segment elevation, frequent PVC. X-rays interpreted by me (1pt min.). @ -Chest x-ray negative for acute cardiopulmonary disease CT interpreted by me (1pt min.). @ -None done U/S interpreted by me (1pt. min.). @ -Ultrasound kidney and bladder negative for acute findings What testing was considered but not performed or refused? (CT, X-rays, U/S, labs)? Why? @ -None What meds were considered but not given or refused? Why? @ -None Did you discuss the management of the patient with other professionals (professionals i.e. , PA, VICE PRESIDENT OF SOFTWARE DEVELOPMENT, lab, RT, psych nurse, long term care social worker, eligibility clerk, teacher, identification officer, case reviewer)? Give summary @ -[Dr. Melchor, Dr. Recinos Was smoking cessation discussed for >3mins.? @ -No Was critical care preformed (if so, how long)? @ -No Were there social determinants of health that impacted care today? How? (Homelessness, low income, unemployed, alcoholism, drug addiction, transportation, low edu. Level, literacy, decrease access to med. care, nursing home, rehab)? @ -No Was there de-escalation of care discussed even if they declined (Discuss DNR or withdrawal of care, Hospice)? DNR status @ -No What co-morbidities impacted this encounter? (DM, HTN, Smoking, COPD, CAD, Cancer, CVA, ARF, Chemo, Hep., AIDS, mental health diagnosis, sleep apnea, morbi d obesity)? @ -Alcohol abuse Was patient admitted / discharged? Hospital course, mention meds given and route, prescriptions, significant lab abnormalities, going to OR and other pertinent info. @ -64-year-old presenting for evaluation of near syncopal. Patient has not been eating or drinking according to family for the past 1 week. Laboratory testing reveals that the patient is in acute renal failure with an elevated BUN and creatinine. He Booker catheter placed, started on IV fluid this is likely prerenal. Patient admitted to internal medicine with nephrology on consult Undiagnosed new problem with uncertain prognosis? @ -No Drug Therapy requiring intensive monitoring for toxicity (Heparin, Nitro, Insulin, Cardizem)? @ -No Were any procedures done? @ -No Diagnosis/symptom? @ -[Acute renal failure Acute, or Chronic, or Acute on Chronic? @Acute Uncomplicated (without systemic symptoms) or Complicated (systemic symptoms)? @ -Complicated Side effects of treatment? @ -No Exacerbation, Progression, or Severe Exacerbation? @ -No Poses a threat to life or bodily function? How? (Chest pain, [place], TX, pneumonia, PE, COPD, DKA, ARF, appy, cholecystitis, CVA, Diverticulitis, Homicidal, Suicidal, threat to staff... and all critical care pts) @ -Yes, renal failure - Lab Data Result diagrams: 08/05/24 10:30 08/05/24 10:30 Lab Results 08/05/24 08/05/24 08/05/24 Range/Units 10:30 10:30 10:30 WBC 9.46 (4.50-10.00) 10*3/uL RBC 3.00 L (4.40-5.60) 10*6/uL Hgb 9.1 L (13.0-17.0) g/dL Hct 28.4 L (39.6-50.0) % MCV 94.7 (80.0-97.0) fL MCH 30.3 (27.0-32.0) pg MCHC 32.0 (32.0-37.0) g/dL Plt Count 249 (140-440) 10*3/uL MPV 9.6 (9.5-12.2) fL Immature Gran % (Auto) 1.0 % Neutrophils % 68.5 % Lymphocytes % 18.3 % Monocytes % 8.6 % Eosinophils % 3.0 % Basophils % 0.6 % Immature Gran # 0.09 H (0.00-0.04) 10*3/uL Neutrophils # 6.49 (1.80-7.70) 10*3/uL Lymphocytes # 1.73 (0.90-5.00) 10*3/uL Monocytes # 0.81 (0.20-1.00) 10*3/uL Eosinophils # 0.28 (0.04-0.35) 10*3/uL Basophils # 0.06 (0.00-0.10) 10*3/uL PT 10.1 (10.0-12.5) sec INR 0.9 (<1.2) APTT 19.9 L (22.0-30.0) sec Sodium (137-145) mmol/L Potassium (3.5-5.1) mmol/L Chloride (98-107) mmol/L Carbon Dioxide (22-30) mmol/L Anion Gap mmol/L BUN (9-20) mg/dL Creatinine (0.66-1.25) mg/dL Est GFR (CKD-EPI)AfAm (>60 ml/min/1.73 sqM) Est GFR (CKD-EPI)NonAf (>60 ml/min/1.73 sqM) Glucose (74-99) mg/dL Calcium (8.4-10.2) mg/dL Magnesium (1.6-2.3) mg/dL Total Bilirubin (0.2-1.3) mg/dL AST (17-59) U/L ALT (4-49) U/L Alkaline Phosphatase (38-126) U/L Troponin I (0.000-0.034) ng/mL Total Protein (6.3-8.2) g/dL Albumin (3.5-5.0) g/dL Urine Color Colorless Urine Appearance Clear (Clear) Urine pH 6.5 (5.0-8.0) Ur Specific [place] 1.020 (1.001-1.035) Urine Protein 1+ H (Negative) Urine Glucose (UA) Negative (Negative) Urine Ketones Negative (Negative) Urine Blood Moderate H (Negative) Urine Nitrite Negative (Negative) Urine Bilirubin Negative (Negative) Urine Urobilinogen <2.0 (<2.0) mg/dL Ur Leukocyte Esterase Small H (Negative) Urine RBC 1 (0-5) /hpf Urine WBC 16 H (0-5) /hpf Serum Alcohol mg/dL 08/05/24 08/05/24 Range/Units 10:30 10:30 WBC (4.50-10.00) 10*3/uL RBC (4.40-5.60) 10*6/uL Hgb (13.0-17.0) g/dL Hct (39.6-50.0) % MCV (80.0-97.0) fL MCH (27.0-32.0) pg MCHC (32.0-37.0) g/dL Plt Count (140-440) 10*3/uL MPV (9.5-12.2) fL Immature Gran % (Auto) % Neutrophils % % Lymphocytes % % Monocytes % % Eosinophils % % Basophils % % Immature Gran # (0.00-0.04) 10*3/uL Neutrophils # (1.80-7.70) 10*3/uL Lymphocytes # (0.90-5.00) 10*3/uL Monocytes # (0.20-1.00) 10*3/uL Eosinophils # (0.04-0.35) 10*3/uL Basophils # (0.00-0.10) 10*3/uL PT (10.0-12.5) sec INR (<1.2) APTT (22.0-30.0) sec Sodium 137 (137-145) mmol/L Potassium 5.4 H (3.5-5.1) mmol/L Chloride 100 (98-107) mmol/L Carbon Dioxide 20 L (22-30) mmol/L Anion Gap 17 mmol/L BUN 57 H (9-20) mg/dL Creatinine 8.74 H* (0.66-1.25) mg/dL Est GFR (CKD-EPI)AfAm 7 (>60 ml/min/1.73 sqM) Est GFR (CKD-EPI)NonAf 6 (>60 ml/min/1.73 sqM) Glucose 115 H (74-99) mg/dL Calcium 14.0 H* (8.4-10.2) mg/dL Magnesium 2.7 H (1.6-2.3) mg/dL Total Bilirubin 0.3 (0.2-1.3) mg/dL AST 19 (17-59) U/L ALT 15 (4-49) U/L Alkaline Phosphatase 92 (38-126) U/L Troponin I 0.020 (0.000-0.034) ng/mL Total Protein 8.7 H (6.3-8.2) g/dL Albumin 4.7 (3.5-5.0) g/dL Urine Color Urine Appearance (Clear) Urine pH (5.0-8.0) Ur Specific [place] (1.001-1.035) Urine Protein (Negative) Urine Glucose (UA) (Negative) Urine Ketones (Negative) Urine Blood (Negative) Urine Nitrite (Negative) Urine Bilirubin (Negative) Urine Urobilinogen (<2.0) mg/dL Ur Leukocyte Esterase (Negative) Urine RBC (0-5) /hpf Urine WBC (0-5) /hpf Serum Alcohol <10 mg/dL Disposition Clinical Impression: Syncope, ARF (acute renal failure) Disposition: ADMITTED IP TO THIS [facility] Condition: Stable Is patient prescribed a controlled substance at d/c from ED?: No Referrals: None,Stated [Primary Care Provider] - 1-2 days Time of Disposition: 13:10
--- NOTE | 2024-08-05 09:59 | XR ---
EXAMINATION TYPE: XR chest 2V DATE OF EXAM: 08/05/2024 9:37 AM COMPARISON: 10/22/2023 CLINICAL INDICATION: Male, 64 years old with history of syncope, , TECHNIQUE: PA and lateral views FINDINGS: Heart normal size. Aorta and pulmonary vasculature are within normal limits. Mild interstitial promin ence is unchanged and has a chronic appearance. No pao consolidation or pleural effusion. Similar s light asymmetric elevation right hemidiaphragm. IMPRESSION: Chronic changes. No definite acute process. [facility], , 08/05/2024 9:57 AM
[2024-08-05] MEDS: FAMOTIDINE 20 MG/2 ML VIAL IV STA (10:53)
[2024-08-05 10:54] LABS: Appearance,Urine Clear (Clear); Basophils # (A) 0.06 10*3/uL (0.00-0.10); Basophils % (A) 0.6 %; Bilirubin,Urine Negative (Negative); Blood,Urine Moderate (Negative); Color,Urine Colorless; Eosinophils # (A) 0.28 10*3/uL (0.04-0.35); Glucose,Urine (UA) Negative (Negative); HCT 28.4 % (39.6-50.0); HGB 9.1 g/dL (13.0-17.0); Ketones,Urine Negative (Negative); Leukocyte Esterase,Urine Small (Negative); Lymphocytes # (A) 1.73 10*3/uL (0.90-5.00); Lymphocytes % (A) 18.3 %; MCH 30.3 pg (27.0-32.0); MCV 94.7 fL (80.0-97.0); Mean Platelet Volume 9.6 fL (9.5-12.2); Monocytes # (A) 0.81 10*3/uL (0.20-1.00); Monocytes % (A) 8.6 %; Neutrophils # (A) 6.49 10*3/uL (1.80-7.70); Neutrophils % (A) 68.5 %; Nitrite,Urine Negative (Negative); PH, Urine 6.5 (5.0-8.0); Platelet Count 249 10*3/uL (140-440); Protein,Urine 1+ (Negative); RBC,Urine 1 /hpf (0-5); RDW 14.9 % (11.5-14.5); Urobilinogen,Urine <2.0 mg/dL (<2.0); WBC 9.46 10*3/uL (4.50-10.00); WBC,Urine 16 /hpf (0-5)
[2024-08-05 10:59] LABS: ALT 15 U/L (4-49); AST 19 U/L (17-59); African American GFR (CKD) 7 (>60 ml/min/1.73 sqM); Albumin 4.7 g/dL (3.5-5.0); Alcohol <10 mg/dL; Alkaline Phosphatase 92 U/L (38-126); Anion Gap 17 mmol/L; Blood Urea Nitrogen 57 mg/dL (9-20); Carbon Dioxide 20 mmol/L (22-30); Chloride 100 mmol/L (98-107); Glucose 115 mg/dL (74-99); Magnesium 2.7 mg/dL (1.6-2.3); Non-African American GFR(CKD) 6 (>60 ml/min/1.73 sqM); Potassium 5.4 mmol/L (3.5-5.1); Sodium 137 mmol/L (137-145); Total Bilirubin 0.3 mg/dL (0.2-1.3); Total Protein 8.7 g/dL (6.3-8.2)
[2024-08-05 11:23] LABS: INR 0.9 (<1.2); Prothrombin Time 10.1 sec (10.0-12.5)
[2024-08-05] MEDS: SODIUM CHLORIDE 0.9% 1,000 ML IV ONE (11:47)
[2024-08-05] MEDS: SODIUM CHLORIDE 0.9% 1,000 ML IV SCH (11:48)
[2024-08-05 11:54] LABS: Partial Thromboplastin Time 19.9 sec (22.0-30.0)
--- NOTE | 2024-08-05 12:53 | US ---
EXAMINATION TYPE: US renals and bladder DATE OF EXAM: 08/05/2024 COMPARISON: NONE CLINICAL INDICATION: Male, 64 years old with history of ARF TECHNIQUE: Grayscale imaging of the bilateral kidneys and urinary bladder: FINDINGS: EXAM MEASUREMENTS: Right Kidney: 10 x 4.9 x 4.7 cm Left Kidney: 11.1 x 4.3 x 4.1 cm [id number] Developer notes: Limitations due to bowel gas. Right Kidney: No hydronephrosis or masses seen Left Kidney: No hydronephrosis or masses seen Bladder: Cather in place. IMPRESSION: Limitations due to bowel gas. No hydronephrosis seen on either side. Suboptimal assessment of the miah dder due to Booker catheter. [facility], , 08/05/2024 12:51 PM
[2024-08-05] MEDS ORDERED: NALOXONE 0.4 MG/ML 1 ML VIAL IV PRN (13:03)
[2024-08-05 19:46] LABS: HCT 24.6 % (39.6-50.0); HGB 7.8 g/dL (13.0-17.0); MCHC 31.7 g/dL (32.0-37.0); MCV 97.6 fL (80.0-97.0); Mean Platelet Volume 9.9 fL (9.5-12.2); Platelet Count 217 10*3/uL (140-440); RBC 2.52 10*6/uL (4.40-5.60); RDW 14.8 % (11.5-14.5); WBC 8.79 10*3/uL (4.50-10.00)
[2024-08-05] MEDS ORDERED: LORazepam 1 MG TAB PO PRN ×3 (20:04)
--- NOTE | 2024-08-05 20:12 | P.HPIM ---
History of Present Illness Patient is a pleasant 64 years old male who presents because he fell at home. Patient felt dizzy and fell Currently he is awake oriented, very mildly confused but this looks more situational also. Patient felt severe dizziness this morning. He felt so risky so he slightly landed on the floor, he stayed on the floor for about half an hour, he denies syncope. Patient complaining of from heartburn and he vomited once earlier today. Also complains from his voiding, it hurts when he pees. He smokes 1 pack/day he was counseled to quit and he agrees to the nicotine patch. He drinks daily about 1 pint per day of fireball Patient afebrile Blood pressure is normal Hemoglobin 9. 1 down from 10-13 baseline. Creatinine 8.7. Simeco less than 10. Renal ultrasound showing no hydronephrosis but limited to studies. Chest x-ray showing chronic changes with no acute process. EKG showing sinus rhythm at [address] changes but PVCs. Patient is currently on normal saline 130 mL/h. Review of Systems Review of systems CONSTITUTIONAL: No fever, no malaise, no fatigue. HEENT: No recent visual problems or hearing problems. Denied any sore throat. CARDIOVASCULAR: No orthopnea, PND, no palpitations, no syncope. PULMONARY: No shortness of breath, no cough, no hemoptysis. GASTROINTESTINAL: No diarrhea, no nausea, no vomiting, no abdominal pain. Normoactive bowel sounds. NEUROLOGICAL: No headaches, no weakness, no numbness. HEMATOLOGICAL: Denies any bleeding or petechiae. GENITOURINARY: Denies any burning micturition, frequency, or urgency. MUSCULOSKELETAL/RHEUMATOLOGICAL: Denies any joint pain, swelling, or any muscle pain. ENDOCRINE: Denies any polyuria or polydipsia. Past Medical History Past Medical History: No Reported History Additional Past Medical History / Comment(s): hard of hearing Last Myocardial Infarction Date:: Alcoholism, Possible seizure history, likely related to alcohol withdrawal, History of Any Multi-Drug Resistant Organisms: None Reported Past Surgical History: No Surgical Hx Reported Past Psychological History: No Psychological Hx Reported Smoking Status: Current every day smoker Past Alcohol Use History: Daily, Heavy Past Drug Use History: None Reported - Past Family History Father Additional Family Medical History / Comment(s): Difficult to obtain, the patient does not have any children, history of cancer and one sibling, one with CAD, one of his parents from CAD. Medications and Allergies Home Medications Medication Instructions Recorded Confirmed Type Omeprazole 40 mg PO DAILY PRN 08/05/24 08/05/24 History Sulfamethox-Tmp 800-160Mg [Bactrim 2 tab PO Q12HR 08/05/24 08/05/24 History Ds] Allergies Allergy/AdvReac Type Severity Reaction Status Date / Time No Known Allergies Allergy Verified 08/05/24 12:06 Physical Exam Vitals: Vital Signs Temp Pulse Pulse Pulse Resp BP BP 08/05/24 17:32 98.4 F 79 20 142/94 08/05/24 17:09 97.8 F 78 18 120/78 08/05/24 14:26 97.8 F 80 18 128/80 08/05/24 12:35 98 F 73 16 131/84 08/05/24 11:00 98 F 74 16 121/93 08/05/24 10:51 69 08/05/24 10:32 98.1 F 69 18 139/85 08/05/24 07:39 97.6 F 68 22 126/79 Pulse Ox 08/05/24 17:32 97 08/05/24 17:09 98 08/05/24 14:26 98 08/05/24 12:35 96 08/05/24 11:00 96 08/05/24 10:51 08/05/24 10:32 96 08/05/24 07:39 93 L Intake and Output 08/05/24 08/05/24 08/05/24 06:59 14:59 22:59 Output Total 50 550 Balance -50 -550 Output: Urine 50 550 Uretheral (Booker) 50 Other: Weight 77.111 kg GENERAL: The patient is alert and oriented x3, not in any acute distress. Well developed, well nourished. HEENT: Pupils are round and equally reacting to light. EOMI. No scleral icterus. No conjunctival pallor. Normocephalic, atraumatic. No pharyngeal erythema. No thyromegaly. CARDIOVASCULAR: S1 and S2 present. No murmurs, rubs, or gallops. PULMONARY: Chest is clear to auscultation, no wheezing , no crackles. ABDOMEN: Soft, nontender, nondistended, normoactive bowel sounds. No palpable organomegaly. MUSCULOSKELETAL: No joint swelling or deformity. EXTREMITIES: No cyanosis, clubbing, or pedal edema. NEUROLOGICAL: Gross neurological examination did not reveal any focal deficits. SKIN: No rashes. no petechiae. Results CBC & Chem 7: 08/05/24 19:34 08/05/24 10:30 Labs: Abnormal Lab Results - Last 24 Hours (Table) 08/05/24 08/05/24 08/05/24 Range/Units 10:30 10:30 10:30 RBC 3.00 L (4.40-5.60) 10*6/uL Hgb 9.1 L (13.0-17.0) g/dL Hct 28.4 L (39.6-50.0) % Immature Gran # 0.09 H (0.00-0.04) 10*3/uL APTT 19.9 L (22.0-30.0) sec Potassium (3.5-5.1) mmol/L Carbon Dioxide (22-30) mmol/L BUN (9-20) mg/dL Creatinine (0.66-1.25) mg/dL Glucose (74-99) mg/dL Calcium (8.4-10.2) mg/dL Magnesium (1.6-2.3) mg/dL Total Protein (6.3-8.2) g/dL Urine Protein 1+ H (Negative) Urine Blood Moderate H (Negative) Ur Leukocyte Esterase Small H (Negative) Urine WBC 16 H (0-5) /hpf 08/05/24 Range/Units 10:30 RBC (4.40-5.60) 10*6/uL Hgb (13.0-17.0) g/dL Hct (39.6-50.0) % Immature Gran # (0.00-0.04) 10*3/uL APTT (22.0-30.0) sec Potassium 5.4 H (3.5-5.1) mmol/L Carbon Dioxide 20 L (22-30) mmol/L BUN 57 H (9-20) mg/dL Creatinine 8.74 H* (0.66-1.25) mg/dL Glucose 115 H (74-99) mg/dL Calcium 14.0 H* (8.4-10.2) mg/dL Magnesium 2.7 H (1.6-2.3) mg/dL Total Protein 8.7 H (6.3-8.2) g/dL Urine Protein (Negative) Urine Blood (Negative) Ur Leukocyte Esterase (Negative) Urine WBC (0-5) /hpf Thrombosis Risk Factor Assmnt - Choose All That Apply Any of the Below Risk Factors Present?: Yes Each Risk Factor Represents 2 Points: Age 61-74 years Thrombosis Risk Factor Assessment Total Risk Factor Score: 2 Thrombosis Risk Factor Assessment Level: Low Risk Assessment and Plan Assessment: Acute kidney injury Acute on chronic anemia Fall at home with dizziness Recently treated left lower extremity lesion with Bactrim Alcohol use disorder at risk of withdrawal Nicotine dependence. l Plan: Check urine analysis Check for hemolysis, anemia workup. Send urine culture Start Protonix twice daily. Continue with IV hydration normal saline 130 mL/h Nephrology team consult renal ultrasound reviewed Start CIWA protocol thiamine and nicotine patch. Labs and medication were reviewed.. Continue same treatment. Continue with symptomatic treatment. Resume home medication. Monitor labs and vitals. DVT and GI prophylaxis. Further recommendations as per clinical course of the patient DVT prophylaxis: S mechanical still hemoglobin acute anemia stabilized GI Prophylaxis: Protonix PT/OT: Pending Prognosis is guarded
[2024-08-05] MEDS: NICOTINE 21MG/24HR PATCH TRANSDERM SCH (21:30)
[2024-08-05] MEDS: SODIUM ZIRCONIUM CYCLOSILICATE 10 GM PACKET PO ONE (21:30)
[2024-08-05] MEDS: PANTOPRAZOLE 40 MG/10 ML VIAL IVP SCH (21:30)
[2024-08-05 22:15] LABS: Amorphous Sediment,Urine Rare /hpf; Appearance,Urine Clear (Clear); Bacteria,Urine Rare /hpf; Bilirubin,Urine Negative (Negative); Blood,Urine Moderate (Negative); Color,Urine Colorless; Glucose,Urine (UA) Negative (Negative); Hyaline Casts,Urine 3 /lpf (0-2); Ketones,Urine Negative (Negative); Leukocyte Esterase,Urine Moderate (Negative); Mucus,Urine Rare /hpf; Nitrite,Urine Negative (Negative); PH, Urine 6.5 (5.0-8.0); Protein,Urine 1+ (Negative); RBC,Urine 15 /hpf (0-5); Specific Gravity,Urine 1.015 (1.001-1.035); Squamous Epithelial Cell,Urine 3 /hpf (0-4); Urobilinogen,Urine <2.0 mg/dL (<2.0); WBC,Urine 21 /hpf (0-5)
[2024-08-06 02:46] LABS: Reticulocyte % 1.03 % (0.10-1.80)
[2024-08-06 03:46] LABS: % Iron Saturation 20.77 (15.00-50.00)
[2024-08-06] MEDS: THIAMINE 100 MG TAB PO SCH (08:03)
[2024-08-06] MEDS: LORazepam 0.5 MG TAB PO PRN (08:04)
[2024-08-06 08:37] LABS: ALT 11 U/L (10-49); AST 15 U/L (14-35); Albumin 3.5 g/dL (3.8-4.9); Albumin/Globulin Ratio 1.03 Ratio (1.60-3.17); Alkaline Phosphatase 69 U/L (41-126); BUN/Creat Ratio 7.26 Ratio (12.00-20.00); Blood Urea Nitrogen 55.2 mg/dL (9.0-27.0); Calcium 12.2 mg/dL (8.7-10.3); Carbon Dioxide 18.3 mmol/L (21.6-31.8); Chloride 105 mmol/L (96-109); Globulin 3.4 g/dL (1.6-3.3); Glucose 88 mg/dL (70-110); Potassium 4.8 mmol/L (3.5-5.5); Sodium 137 mmol/L (135-145); Total Bilirubin <0.2 mg/dL (0.3-1.2); Total Protein 6.9 g/dL (6.2-8.2)
[2024-08-06 08:58] LABS: Basophils # (A) 0.04 X 10*3/uL (0.00-0.10); Basophils % (A) 0.5 %; Eosinophils # (A) 0.24 X 10*3/uL (0.04-0.35); Eosinophils % (A) 3.1 %; HGB 6.9 g/dL (13.0-17.0); Lymphocytes % (A) 19.6 %; MCH 29.5 pg (27.0-32.0); MCV 98.3 FL (80.0-97.0); Monocytes # (A) 0.68 X 10*3/uL (0.20-1.00); Monocytes % (A) 8.9 %; NRBC Per 100 WBC 0 X 10*3/uL (0.00-0.01); Neutrophils # (A) 5.14 X 10*3/uL (1.80-7.70); Platelet Count 215 X 10*3/uL (140-440); RBC 2.34 X 10*6/uL (4.40-5.60); WBC 7.67 X 10*3/uL (4.50-10.00)
--- NOTE | 2024-08-06 11:03 | P.PN ---
Subjective Patient is a pleasant 64 years old male who presents because he fell at home. Patient felt dizzy and fell Currently he is awake oriented, very mildly confused but this looks more situational also. Patient felt severe dizziness this morning. He felt so risky so he slightly landed on the floor, he stayed on the floor for about half an hour, he denies syncope. Patient complaining of from heartburn and he vomited once earlier today. Also complains from his voiding, it hurts when he pees. He smokes 1 pack/day he was counseled to quit and he agrees to the nicotine patch. He drinks daily about 1 pint per day of fireball Patient afebrile Blood pressure is normal Hemoglobin 9. 1 down from 10-13 baseline. Creatinine 8.7. Simeco less than 10 . Renal ultrasound showing no hydronephrosis but limited to studies. Chest x- ray showing chronic changes with no acute process. EKG showing sinus rhythm at [address] changes but PVCs. Patient is currently on normal saline 130 mL/h 08/06 Patient sitting up in bed awake alert denies headache or dizziness today no syncope or similar complaint No chest pain or dyspnea. He vomited this morning which was no blood in it. Improved with antiemetic He complains from dysuria as well and urinalysis suspicious for UTI, ceftriaxone is ordered. Urine culture is pending. No signs of alcohol withdrawal Has Booker catheter with clear urine He is getting IV fluids Hemoglobin dropped to 6.9 and workup showing evidence of nutritional deficiency of vitamin B12, folate and iron. Consult GI team to rule out GI bleed Hemolysis unlikely with normal bilirubin high haptoglobin. Discussed with staff no Family member at bedside Active Medications Generic Name Dose Route Start Last Admin Trade Name Freq PRN Reason Stop Dose Admin Acetaminophen 650 mg 08/05/24 13:03 Acetaminophen Tab 325 Mg Tab PO Q6HR PRN Mild Pain or Fever > 100.5 Cyanocobalamin 1,000 mcg 08/06/24 09:15 Cyanocobalamin 1,000 Mcg/Ml 1 Ml Vial IM 08/09/24 09:14 DAILY [facility] Cyanocobalamin 1,000 mcg 08/09/24 09:00 Cyanocobalamin 500 Mcg Tab PO DAILY LIZZY Ferrous Sulfate 325 mg 08/06/24 09:30 Ferrous Sulfate 325 Mg Tab PO BID-W/MEALS LIZZY Folic Acid 1 mg 08/06/24 09:15 Folic Acid 1 Mg Tab PO DAILY LIZZY Sodium Chloride 1,000 mls @ 130 mls/hr 08/05/24 11:15 08/06/24 02:58 Saline 0.9% IV 130 mls/hr .[id number] LIZZY Administration Ceftriaxone Sodium 1 gm/ 50 mls @ 100 mls/hr 08/06/24 11:00 Sodium Chloride IVPB Q24HR LIZZY Protocol Lorazepam 0.5 mg 08/05/24 20:04 08/06/24 08:04 Lorazepam 0.5 Mg Tab PO 0.5 mg Q4HR PRN Administration Ciwa 4 To 5 Lorazepam 2 mg 08/05/24 20:04 Lorazepam 1 Mg Tab PO Q3HR PRN Ciwa 8 To 9 Lorazepam 1 mg 08/05/24 20:04 Lorazepam 1 Mg Tab PO Q4HR PRN Ciwa 6 To 7 Lorazepam 2 mg 08/05/24 20:04 Lorazepam 1 Mg Tab PO Q2HR PRN Ciwa 10 or greater Naloxone HCl 0.2 mg 08/05/24 13:03 Naloxone 0.4 Mg/Ml 1 Ml Vial IV Q2M PRN Opioid Reversal Nicotine 1 patch 08/05/24 20:15 08/06/24 08:03 Nicotine 21mg/24hr Patch TRANSDERM 1 patch DAILY LIZZY Administration Pantoprazole Sodium 40 mg 08/05/24 21:00 08/06/24 08:04 Pantoprazole 40 Mg/10 Ml Vial IVP 40 mg BID LIZZY Administration Thiamine HCl 100 mg 08/06/24 09:00 08/06/24 08:03 Thiamine 100 Mg Tab PO 100 mg DAILY LIZZY Administration Objective - Vital Signs Vital signs: Vital Signs Temp 97.9 F 08/06/24 07:19 Pulse 69 08/06/24 07:19 Resp 16 08/06/24 07:19 BP 104/53 08/06/24 07:19 Pulse Ox 95 08/06/24 07:19 FiO2 Intake & Output 08/05/24 08/06/24 08/06/24 18:59 06:59 18:59 Output Total 600 800 Balance -600 -800 Weight 77.111 kg Output: Urine 600 800 Uretheral (Booker) 50 Other: Voiding Method Indwelling Catheter Indwelling Catheter - Exam GENERAL: The patient is alert and oriented x3, not in any acute distress. Well developed, well nourished. HEENT: Pupils are round and equally reacting to light. EOMI. No scleral icterus. No conjunctival pallor. Normocephalic, atraumatic. No pharyngeal erythema. No thyromegaly. CARDIOVASCULAR: S1 and S2 present. No murmurs, rubs, or gallops. PULMONARY: Chest is clear to auscultation, no wheezing , no crackles. ABDOMEN: Soft, nontender, nondistended, normoactive bowel sounds. No palpable organomegaly. MUSCULOSKELETAL: No joint swelling or deformity. EXTREMITIES: No cyanosis, clubbing, or pedal edema. NEUROLOGICAL: Gross neurological examination did not reveal any focal deficits. SKIN: No rashes. no petechiae. - Labs CBC & Chem 7: 08/06/24 03:18 08/06/24 03:18 Labs: Abnormal Lab Results - Last 24 Hours (Table) 08/05/24 08/05/24 08/05/24 Range/Units 10:30 10:30 19:34 RBC 2.52 L (4.40-5.60) 10*6/uL Hgb 7.8 L (13.0-17.0) g/dL Hct 24.6 L (39.6-50.0) % MCV 97.6 H (80.0-97.0) fL MCHC 31.7 L (32.0-37.0) g/dL RDW 14.8 H (11.5-14.5) % Immature Gran # (0.00-0.04) X 10*3/uL Haptoglobin (31.2-198.0) mg/dL APTT 19.9 L (22.0-30.0) sec Potassium 5.4 H (3.5-5.1) mmol/L Carbon Dioxide 20 L (22-30) mmol/L Anion Gap (4.00-12.00) mmol/L BUN 57 H (9-20) mg/dL Creatinine 8.74 H* (0.66-1.25) mg/dL Est GFR (CKD-EPI) (>=60) BUN/Creatinine Ratio (12.00-20.00) Ratio Glucose 115 H (74-99) mg/dL Calcium 14.0 H* (8.4-10.2) mg/dL Magnesium 2.7 H (1.6-2.3) mg/dL Iron (65-175) UG/DL Transferrin (204.0-354.0) mg/dL Total Bilirubin (0.3-1.2) mg/dL Total Protein 8.7 H (6.3-8.2) g/dL Albumin (3.8-4.9) g/dL Globulin (1.6-3.3) g/dL Albumin/Globulin Ratio (1.60-3.17) Ratio Vitamin B12 (200.0-944.0) pg/mL Urine Protein (Negative) Urine Blood (Negative) Ur Leukocyte Esterase (Negative) Urine RBC (0-5) /hpf Urine WBC (0-5) /hpf Amorphous Sediment (None) /hpf Urine Bacteria (None) /hpf Hyaline Casts (0-2) /lpf Urine Mucus (None) /hpf 08/05/24 08/05/24 08/05/24 Range/Units 19:34 19:34 21:46 RBC (4.40-5.60) 10*6/uL Hgb (13.0-17.0) g/dL Hct (39.6-50.0) % MCV (80.0-97.0) fL MCHC (32.0-37.0) g/dL RDW (11.5-14.5) % Immature Gran # (0.00-0.04) X 10*3/uL Haptoglobin 273.0 H (31.2-198.0) mg/dL APTT (22.0-30.0) sec Potassium (3.5-5.1) mmol/L Carbon Dioxide (22-30) mmol/L Anion Gap (4.00-12.00) mmol/L BUN (9-20) mg/dL Creatinine (0.66-1.25) mg/dL Est GFR (CKD-EPI) (>=60) BUN/Creatinine Ratio (12.00-20.00) Ratio Glucose (74-99) mg/dL Calcium (8.4-10.2) mg/dL Magnesium (1.6-2.3) mg/dL Iron 59 L (65-175) UG/DL Transferrin 203.0 L (204.0-354.0) mg/dL Total Bilirubin (0.3-1.2) mg/dL Total Protein (6.3-8.2) g/dL Albumin (3.8-4.9) g/dL Globulin (1.6-3.3) g/dL Albumin/Globulin Ratio (1.60-3.17) Ratio Vitamin B12 152.0 L (200.0-944.0) pg/mL Urine Protein 1+ H (Negative) Urine Blood Moderate H (Negative) Ur Leukocyte Esterase Moderate H (Negative) Urine RBC 15 H (0-5) /hpf Urine WBC 21 H (0-5) /hpf Amorphous Sediment Rare H (None) /hpf Urine Bacteria Rare H (None) /hpf Hyaline Casts 3 H (0-2) /lpf Urine Mucus Rare H (None) /hpf 08/06/24 08/06/24 Range/Units 03:18 03:18 RBC 2.34 L (4.40-5.60) 10*6/uL Hgb 6.9 A* (13.0-17.0) g/dL Hct 23.0 L (39.6-50.0) % MCV 98.3 H (80.0-97.0) fL MCHC 30.0 L (32.0-37.0) g/dL RDW 15.0 H (11.5-14.5) % Immature Gran # 0.07 H (0.00-0.04) X 10*3/uL Haptoglobin (31.2-198.0) mg/dL APTT (22.0-30.0) sec Potassium (3.5-5.1) mmol/L Carbon Dioxide 18.3 L (22-30) mmol/L Anion Gap 13.70 H (4.00-12.00) mmol/L BUN 55.2 H (9-20) mg/dL Creatinine 7.6 H (0.66-1.25) mg/dL Est GFR (CKD-EPI) 7 L (>=60) BUN/Creatinine Ratio 7.26 L (12.00-20.00) Ratio Glucose (74-99) mg/dL Calcium 12.2 H (8.4-10.2) mg/dL Magnesium (1.6-2.3) mg/dL Iron (65-175) UG/DL Transferrin (204.0-354.0) mg/dL Total Bilirubin <0.2 L (0.3-1.2) mg/dL Total Protein (6.3-8.2) g/dL Albumin 3.5 L (3.8-4.9) g/dL Globulin 3.4 H (1.6-3.3) g/dL Albumin/Globulin Ratio 1.03 L (1.60-3.17) Ratio Vitamin B12 (200.0-944.0) pg/mL Urine Protein (Negative) Urine Blood (Negative) Ur Leukocyte Esterase (Negative) Urine RBC (0-5) /hpf Urine WBC (0-5) /hpf Amorphous Sediment (None) /hpf Urine Bacteria (None) /hpf Hyaline Casts (0-2) /lpf Urine Mucus (None) /hpf Assessment and Plan Assessment: Acute kidney injury Acute urinary tract infection suspected secondary to gram-negative bacilli Acute on chronic anemia. Secondary to nutritional deficiency of vitamin B12 folate and iron. Rule out GI bleed Fall at home with dizziness. Patient denies any more dizziness. No syncope or more falling Recently treated left lower extremity lesion with Bactrim Alcohol use disorder at risk of withdrawal Nicotine dependence. l Plan: Continue ceftriaxone Check urine analysis GI team consult Start Protonix twice daily. Continue with IV hydration normal saline 130 mL/h Nephrology team consult renal ultrasound reviewed Start CIKY protocol thiamine and nicotine patch. Labs and medication were reviewed.. Continue same treatment. Continue with symptomatic treatment. Resume home medication. Monitor labs and vitals. DVT and GI prophylaxis. Further recommendations as per clinical course of the patient DVT prophylaxis: S mechanical still hemoglobin acute anemia stabilized GI Prophylaxis: Protonix PT/OT: Pending Prognosis is guarded
[2024-08-06] MEDS: CYANOCOBALAMIN 1,000 MCG/ML 1 ML VIAL IM SCH (11:07)
[2024-08-06] MEDS: FERROUS SULFATE 325 MG TAB PO SCH (11:07)
[2024-08-06] MEDS: FOLIC ACID 1 MG TAB PO SCH (11:07)
--- NOTE | 2024-08-06 11:37 | P.NPCON ---
History of Present Illness - Reason for Consult Consult date: 08/06/24 acute renal failure - History of Present Illness Patient is a 64-year-old male consulted for acute renal failure. Patient has a medical history significant for alcoholism, seizures likely related to alcohol withdrawal Patient came here with complaint of dizziness and fall and was here admitted on 08/06/24. Creatinine on admission 8.74. Creatinine today 7.6. Baseline creatinine 2.38 in Mar 2023 and 0.9 in 2021. Medications reviewed with patient. Only home medication is omeprazole. Bactrim noted on home med list as well. Booker catheter place for retention. 500 ml of urine obtained on catheter placement. Renal ultrasound displaying no evidence of hydronephrosis. Patient with normal blood pressure on admission. Denies any fever, chills. Hemoglobin noted at 6.9 g/dL and serum calcium at 14mg/dL Exam: Vital signs reviewed. GENERAL: Patient is awake oriented, comfortable in b ed, Booker catheter in place CARDIO: Regular rate rhythm. PULM: No audible rhonchi or wheezes. ABD: Non-tender to palpation EXT: No edema Past Medical History Past Medical History: No Reported History Additional Past Medical History / Comment(s): hard of hearing Last Myocardial Infarction Date:: Alcoholism, Possible seizure history, likely r elated to alcohol withdrawal, History of Any Multi-Drug Resistant Organisms: None Reported Past Surgical History: No Surgical Hx Reported Past Psychological History: No Psychological Hx Reported Smoking Status: Current every day smoker Past Alcohol Use History: Daily, Heavy Past Drug Use History: None Reported - Past Family History Father Additional Family Medical History / Comment(s): Difficult to obtain, the patient does not have any children, history of cancer and one sibling, one with CAD, one of his parents from CAD. Medications and Allergies Home Medications Medication Instructions Recorded Confirmed Type Omeprazole 40 mg PO DAILY PRN 08/05/24 08/05/24 History Sulfamethox-Tmp 800-160Mg [Bactrim 2 tab PO Q12HR 08/05/24 08/05/24 History Ds] Allergies Allergy/AdvReac Type Severity Reaction Status Date / Time No Known Allergies Allergy Verified 08/05/24 12:06 Physical Exam Vitals: Vital Signs Temp Pulse Pulse Resp BP BP Pulse Ox 08/06/24 07:19 97.9 F 69 16 104/53 95 08/06/24 01:59 98.2 F 73 18 129/70 100 08/05/24 19:05 97.8 F 81 17 129/66 95 08/05/24 17:32 98.4 F 79 20 142/94 97 08/05/24 17:09 97.8 F 78 18 120/78 98 08/05/24 14:26 97.8 F 80 18 128/80 98 08/05/24 12:35 98 F 73 16 131/84 96 Intake and Output 08/05/24 08/06/24 08/06/24 22:59 06:59 14:59 Output Total 550 800 Balance -550 -800 Output: Urine 550 800 Other: Voiding Method Indwelling Catheter Indwelling Catheter Results - Lab Results Most recent lab results Calcium 12.2 mg/dL (8.7-10.3) H 08/06/24 03:18 Magnesium 2.7 mg/dL (1.6-2.3) H 08/05/24 10:30 08/06/24 03:18 08/06/24 03:18 Assessment and Plan Assessment: MAHAD nonoliguric likely secondary to ATN due to hypercalcemia and recent Bactrim antibiotic course. Rule out AIN from Bactrim or PPI. Also worsened with severe anemia with Hemoglobin 6.9g/dL. Ultrasound showing no evidence of hydronephrosis. UA suggesting possible UTI with urine cultures pending. Booker catheter in place. CKD stage, baseline creatinine 2.38 dated 04/06/2023 and 0.9 in 2021. Acute on chronic normocytic anemia with percent saturation of 20.77%, Hgb on admission 7.8 => 6.9 today Hyperkalemia secondary to acute kidney injury, urine retention. S/p Lokelma, resolved Anion gap metabolic acidosis Hypercalcemia, no calcium supplements noted Alcohol and nicotine dependence Plan: Continue Sodium chloride 0.9% at 130 cc an hour Check urine eosinophils for acute interstitial nephritis Avoid nephrotoxic medications Monitor electrolytes and replete as needed Monitor intake output and weights Will order PTH, VANCE, vitamin D 1, 25, vitamin D 25 hydroxy If renal function continues to not improve, will workup for possible GN. Hgb less than 7.0, type and screen and 1 unit PRBC by primary service GI consulted for possible GI bleed Thank you for this consultation. Will continue to follow throughout admission. Patient is seen and examined. Agree with resident's findings, assessment and plan. Time with Patient: Greater than 30
--- NOTE | 2024-08-06 12:51 | P.CONS ---
History of Present Illness - Reason for Consult Consult date: 08/06/24 Anemia Requesting physician: Liban Melchor - Chief Complaint Syncope - History of Present Illness This is a pleasant 64-year-old male with a history of hearing disorder who is hard of hearing, alcoholism, and daily smoker who had presented to the emergency department yesterday with dizziness and syncopal episode. Patient was admitted with acute kidney injury, hypomagnesemia and noted to have normocytic normochromic anemia. Nephrology was consulted for acute kidney injury. Patient had a drop in his hemoglobin from 9.0 on admission to 6.9 today. Gastroenterology was consulted for anemia. Patient states he has a history of alcoholism and drinks 1/5 a day for most of his life. He currently denies any abdominal pain no black stool or blood in his stool. He states he did have 1 episode of emesis this morning that was bilious, no blood noted. Denies any known history of esophageal varices or cirrhosis of the liver. States he had an upper endoscopy about a year ago possibly at [facility]. No history of colonoscopy. He denies any blood thinners. No regular NSAID use. Review of Systems REVIEW OF SYSTEMS: CARDIOPULMONARY: No chest pain or shortness of breath. Gastrointestinal: No abdominal pain. Episode of nausea and vomiting this morning without any hematemesis or coffee-ground emesis. No rectal bleeding, or melena. GENITOURINARY: No dysuria or hematuria. MUSCULOSKELETAL: Reports normal range of motion. SKIN: No rashes. No jaundice. ENDOCRINE: No chills, fevers. No excessive weight gain or loss. No polydipsia or polyuria. PSYCHIATRIC: Daily alcohol use/abuse dependence NEUROLOGY: No change in mental status. Dizziness and syncopal episode. ENT: Vision unremarkable. Hard of hearing. CONSTITUTIONAL: No recent weight loss. No fever, chills, night sweats. Past Medical History Past Medical History: No Reported History Additional Past Medical History / Comment(s): hard of hearing Last Myocardial Infarction Date:: Alcoholism, Possible seizure history, likely related to alcohol withdrawal, History of Any Multi-Drug Resistant Organisms: None Reported Past Surgical History: No Surgical Hx Reported Past Psychological History: No Psychological Hx Reported Smoking Status: Current every day smoker Past Alcohol Use History: Daily, Heavy Past Drug Use History: None Reported - Past Family History Father Additional Family Medical History / Comment(s): Difficult to obtain, the patient does not have any children, history of cancer and one sibling, one with CAD, one of his parents from CAD. Medications and Allergies Home Medications Medication Instructions Recorded Confirmed Type Omeprazole 40 mg PO DAILY PRN 08/05/24 08/05/24 History Sulfamethox-Tmp 800-160Mg [Bactrim 2 tab PO Q12HR 08/05/24 08/05/24 History Ds] Allergies Allergy/AdvReac Type Severity Reaction Status Date / Time No Known Allergies Allergy Verified 08/05/24 12:06 Physical Exam Vitals: Vital Signs Temp Pulse Pulse Pulse Resp BP BP 08/06/24 07:19 97.9 F 69 16 104/53 08/06/24 01:59 98.2 F 73 18 129/70 08/05/24 19:05 97.8 F 81 17 129/66 08/05/24 17:32 98.4 F 79 20 142/94 08/05/24 17:09 97.8 F 78 18 120/78 08/05/24 14:26 97.8 F 80 18 128/80 08/05/24 12:35 98 F 73 16 131/84 08/05/24 11:00 98 F 74 16 121/93 08/05/24 10:51 69 08/05/24 10:32 98.1 F 69 18 139/85 Pulse Ox 08/06/24 07:19 95 08/06/24 01:59 100 08/05/24 19:05 95 08/05/24 17:32 97 08/05/24 17:09 98 08/05/24 14:26 98 08/05/24 12:35 96 08/05/24 11:00 96 08/05/24 10:51 08/05/24 10:32 96 Intake and Output 08/05/24 08/06/24 08/06/24 22:59 06:59 14:59 Output Total 550 800 Balance -550 -800 Output: Urine 550 800 Other: Voiding Method Indwelling Catheter Indwelling Catheter General appearance: The patient is alert, oriented, appears in no acute distress. HET: Head is normocephalic and atraumatic. Conjunctiva pink. Sclera anicteric. Neck: Supple without lymphadenopathy. Trachea midline. Heart: Regular. Lungs: Equal expansion, normal respiratory effort. Abdomen: Soft, nontender, nondistended. Skin: No rashes. No jaundice. Extremities: Normal skin color and turgor. No pedal edema. Neurological: No focal deficits. Alert and oriented x3. Results CBC & Chem 7: 08/06/24 03:18 08/06/24 03:18 Labs: Abnormal Lab Results - Last 24 Hours (Table) 08/05/24 08/05/24 08/05/24 Range/Units 10:30 10:30 10:30 RBC 3.00 L (4.40-5.60) 10*6/uL Hgb 9.1 L (13.0-17.0) g/dL Hct 28.4 L (39.6-50.0) % MCV (80.0-97.0) fL MCHC (32.0-37.0) g/dL RDW (11.5-14.5) % Immature Gran # 0.09 H (0.00-0.04) 10*3/uL Haptoglobin (31.2-198.0) mg/dL APTT 19.9 L (22.0-30.0) sec Potassium (3.5-5.1) mmol/L Carbon Dioxide (22-30) mmol/L Anion Gap (4.00-12.00) mmol/L BUN (9-20) mg/dL Creatinine (0.66-1.25) mg/dL Est GFR (CKD-EPI) (>=60) BUN/Creatinine Ratio (12.00-20.00) Ratio Glucose (74-99) mg/dL Calcium (8.4-10.2) mg/dL Magnesium (1.6-2.3) mg/dL Iron (65-175) UG/DL Transferrin (204.0-354.0) mg/dL Total Bilirubin (0.3-1.2) mg/dL Total Protein (6.3-8.2) g/dL Albumin (3.8-4.9) g/dL Globulin (1.6-3.3) g/dL Albumin/Globulin Ratio (1.60-3.17) Ratio Vitamin B12 (200.0-944.0) pg/mL Urine Protein 1+ H (Negative) Urine Blood Moderate H (Negative) Ur Leukocyte Esterase Small H (Negative) Urine RBC (0-5) /hpf Urine WBC 16 H (0-5) /hpf Amorphous Sediment (None) /hpf Urine Bacteria (None) /hpf Hyaline Casts (0-2) /lpf Urine Mucus (None) /hpf 08/05/24 08/05/24 08/05/24 Range/Units 10:30 19:34 19:34 RBC 2.52 L (4.40-5.60) 10*6/uL Hgb 7.8 L (13.0-17.0) g/dL Hct 24.6 L (39.6-50.0) % MCV 97.6 H (80.0-97.0) fL MCHC 31.7 L (32.0-37.0) g/dL RDW 14.8 H (11.5-14.5) % Immature Gran # (0.00-0.04) 10*3/uL Haptoglobin (31.2-198.0) mg/dL APTT (22.0-30.0) sec Potassium 5.4 H (3.5-5.1) mmol/L Carbon Dioxide 20 L (22-30) mmol/L Anion Gap (4.00-12.00) mmol/L BUN 57 H (9-20) mg/dL Creatinine 8.74 H* (0.66-1.25) mg/dL Est GFR (CKD-EPI) (>=60) BUN/Creatinine Ratio (12.00-20.00) Ratio Glucose 115 H (74-99) mg/dL Calcium 14.0 H* (8.4-10.2) mg/dL Magnesium 2.7 H (1.6-2.3) mg/dL Iron 59 L (65-175) UG/DL Transferrin 203.0 L (204.0-354.0) mg/dL Total Bilirubin (0.3-1.2) mg/dL Total Protein 8.7 H (6.3-8.2) g/dL Albumin (3.8-4.9) g/dL Globulin (1.6-3.3) g/dL Albumin/Globulin Ratio (1.60-3.17) Ratio Vitamin B12 152.0 L (200.0-944.0) pg/mL Urine Protein (Negative) Urine Blood (Negative) Ur Leukocyte Esterase (Negative) Urine RBC (0-5) /hpf Urine WBC (0-5) /hpf Amorphous Sediment (None) /hpf Urine Bacteria (None) /hpf Hyaline Casts (0-2) /lpf Urine Mucus (None) /hpf 08/05/24 08/05/24 08/06/24 Range/Units 19:34 21:46 03:18 RBC 2.34 L (4.40-5.60) 10*6/uL Hgb 6.9 A* (13.0-17.0) g/dL Hct 23.0 L (39.6-50.0) % MCV 98.3 H (80.0-97.0) fL MCHC 30.0 L (32.0-37.0) g/dL RDW 15.0 H (11.5-14.5) % Immature Gran # 0.07 H (0.00-0.04) 10*3/uL Haptoglobin 273.0 H (31.2-198.0) mg/dL APTT (22.0-30.0) sec Potassium (3.5-5.1) mmol/L Carbon Dioxide (22-30) mmol/L Anion Gap (4.00-12.00) mmol/L BUN (9-20) mg/dL Creatinine (0.66-1.25) mg/dL Est GFR (CKD-EPI) (>=60) BUN/Creatinine Ratio (12.00-20.00) Ratio Glucose (74-99) mg/dL Calcium (8.4-10.2) mg/dL Magnesium (1.6-2.3) mg/dL Iron (65-175) UG/DL Transferrin (204.0-354.0) mg/dL Total Bilirubin (0.3-1.2) mg/dL Total Protein (6.3-8.2) g/dL Albumin (3.8-4.9) g/dL Globulin (1.6-3.3) g/dL Albumin/Globulin Ratio (1.60-3.17) Ratio Vitamin B12 (200.0-944.0) pg/mL Urine Protein 1+ H (Negative) Urine Blood Moderate H (Negative) Ur Leukocyte Esterase Moderate H (Negative) Urine RBC 15 H (0-5) /hpf Urine WBC 21 H (0-5) /hpf Amorphous Sediment Rare H (None) /hpf Urine Bacteria Rare H (None) /hpf Hyaline Casts 3 H (0-2) /lpf Urine Mucus Rare H (None) /hpf 08/06/24 Range/Units 03:18 RBC (4.40-5.60) 10*6/uL Hgb (13.0-17.0) g/dL Hct (39.6-50.0) % MCV (80.0-97.0) fL MCHC (32.0-37.0) g/dL RDW (11.5-14.5) % Immature Gran # (0.00-0.04) 10*3/uL Haptoglobin (31.2-198.0) mg/dL APTT (22.0-30.0) sec Potassium (3.5-5.1) mmol/L Carbon Dioxide 18.3 L (22-30) mmol/L Anion Gap 13.70 H (4.00-12.00) mmol/L BUN 55.2 H (9-20) mg/dL Creatinine 7.6 H (0.66-1.25) mg/dL Est GFR (CKD-EPI) 7 L (>=60) BUN/Creatinine Ratio 7.26 L (12.00-20.00) Ratio Glucose (74-99) mg/dL Calcium 12.2 H (8.4-10.2) mg/dL Magnesium (1.6-2.3) mg/dL Iron (65-175) UG/DL Transferrin (204.0-354.0) mg/dL Total Bilirubin <0.2 L (0.3-1.2) mg/dL Total Protein (6.3-8.2) g/dL Albumin 3.5 L (3.8-4.9) g/dL Globulin 3.4 H (1.6-3.3) g/dL Albumin/Globulin Ratio 1.03 L (1.60-3.17) Ratio Vitamin B12 (200.0-944.0) pg/mL Urine Protein (Negative) Urine Blood (Negative) Ur Leukocyte Esterase (Negative) Urine RBC (0-5) /hpf Urine WBC (0-5) /hpf Amorphous Sediment (None) /hpf Urine Bacteria (None) /hpf Hyaline Casts (0-2) /lpf Urine Mucus (None) /hpf Assessment and Plan (1) Anemia Narrative/Plan: 64-year-old male with longstanding history of alcohol abuse drinking 1/5 of liquor a day was noted to have a normocytic normochromic anemia with a drop in his hemoglobin to 6.9 with no overt signs of blood loss. Denies any previous history of GI bleed however states that he has had upper endoscopy about a year ago with no report available. Patient was admitted for syncopal episode and was noted to have acute kidney injury with electrolyte imbalances. Nephrology following had ordered iron studies iron was 59 TIBC 284 saturation 20.77 and ferritin 240, therefore likely not an iron deficiency anemia secondary to blood loss. Likely secondary to underlying liver disease from alcoholism. Agree with symptomatic treatment with blood transfusion and continue to monitor for signs of GI bleed. Current Visit: Yes Status: Acute Code(s): D64.9 - ANEMIA, UNSPECIFIED SNOMED Code(s): 691282305 (2) Alcohol abuse Current Visit: Yes Status: Acute Code(s): F10.10 - ALCOHOL ABUSE, UNCOMPLICATED SNOMED Code(s): 45063216 (3) Hypomagnesemia Current Visit: Yes Status: Acute Code(s): E83.42 - HYPOMAGNESEMIA SNOMED Code(s): 435889873 (4) Hypercalcemia Current Visit: Yes Status: Acute Code(s): E83.52 - HYPERCALCEMIA SNOMED Code(s): 77438600 (5) ARF (acute renal failure) Current Visit: Yes Status: Acute Code(s): N17.9 - ACUTE KIDNEY FAILURE, UNSPECIFIED SNOMED Code(s): 32645565 (6) Syncope Current Visit: Yes Status: Acute Code(s): R55 - SYNCOPE AND COLLAPSE SNOMED Code(s): 183423345 Plan: 1. Continue symptomatic and supportive care 2. Continue diet as ordered 3. Agree with blood transfusion as ordered 4. Daily CBC, transfuse for hemoglobin less than 7 5. Recommend alcohol abstinence 6. Will add Zofran for nausea and vomiting 7. Continue with recommendations from nephrology Thank you for this consultation, we will continue to follow. Dr. Leila Amador I agree with the dictator's note, documented as a scribe by Yesica Beth.
[2024-08-06] MEDS: ONDANSETRON 4 MG/2 ML VIAL IVP PRN (16:24)
[2024-08-07 07:54] LABS: HCT 26.8 % (39.6-50.0); HGB 8.2 g/dL (13.0-17.0); RBC 2.75 X 10*6/uL (4.40-5.60); WBC 7.27 X 10*3/uL (4.50-10.00)
[2024-08-07 07:55] LABS: Basophils # (A) 0.04 X 10*3/uL (0.00-0.10); Basophils % (A) 0.6 %; Eosinophils # (A) 0.21 X 10*3/uL (0.04-0.35); Eosinophils % (A) 2.9 %; Lymphocytes # (A) 1.45 X 10*3/uL (0.90-5.00); Lymphocytes % (A) 19.9 %; MCH 29.8 pg (27.0-32.0); MCHC 30.6 g/dL (32.0-37.0); MCV 97.5 FL (80.0-97.0); Monocytes # (A) 0.62 X 10*3/uL (0.20-1.00); Monocytes % (A) 8.5 %; NRBC Per 100 WBC 0 X 10*3/uL (0.00-0.01); Neutrophils # (A) 4.86 X 10*3/uL (1.80-7.70); Neutrophils % (A) 66.9 %; Platelet Count 221 X 10*3/uL (140-440); RDW 15.9 % (11.5-14.5)
[2024-08-07 08:06] LABS: BUN/Creat Ratio 6.75 Ratio (12.00-20.00); Blood Urea Nitrogen 47.9 mg/dL (9.0-27.0); Calcium 12.8 mg/dL (8.7-10.3); Carbon Dioxide 20.3 mmol/L (21.6-31.8); Chloride 109 mmol/L (96-109); Glucose 90 mg/dL (70-110); Potassium 4.6 mmol/L (3.5-5.5); Sodium 142 mmol/L (135-145)
--- NOTE | 2024-08-07 12:58 | P.PN ---
Subjective Progress Note Date: 08/07/24 Principal diagnosis: Anemia This is a pleasant 64-year-old male with a history of hearing disorder who is hard of hearing, alcoholism, and daily smoker who had presented to the emergency department yesterday with dizziness and syncopal episode. Patient was admitted with acute kidney injury, hypomagnesemia and noted to have normocytic normochromic anemia. Nephrology was consulted for acute kidney injury. Patient had a drop in his hemoglobin from 9.0 on admission to 6.9 today. Gastroenterology was consulted for anemia. Patient states he has a history of alcoholism and drinks 1/5 a day for most of his life. He currently denies any abdominal pain no black stool or blood in his stool. He states he did have 1 episode of emesis this morning that was bilious, no blood noted. Denies any known history of esophageal varices or cirrhosis of the liver. States he had an upper endoscopy about a year ago possibly at [facility]. No history of colonoscopy. He denies any blood thinners. No regular NSAID use. 08/07/2024 Patient seen and examined today as a follow-up. States he has not had any more vomiting since last night. During which his episodes of emesis he denied any coffee-ground emesis or hematemesis. Denies any abdominal pain. No blood per rectum. Patient's repeat hemoglobin is 8.2 after 1 unit of blood yesterday. Patient is being followed closely by nephrology for acute kidney injury. Objective - Vital Signs Vital signs: Vital Signs Temp 97.8 F 08/07/24 07:38 Pulse 64 08/07/24 07:38 Resp 15 08/07/24 07:38 BP 120/71 08/07/24 07:38 Pulse Ox 97 08/07/24 07:38 FiO2 Intake & Output 08/06/24 08/07/24 08/07/24 18:59 06:59 18:59 Intake Total 310 Output Total 600 900 Balance -290 -900 Intake: Blood Product 310 Rc Pheresis 2 As3 Unit 310 [id number] Output: Urine 900 Emesis 600 Other: Voiding Method Indwelling Catheter Indwelling Catheter - Exam General appearance: The patient is alert, oriented, appears in no acute distres s. HET: Head is normocephalic and atraumatic. Conjunctiva pink. Sclera anicteric. Hard of hearing. Neck: Supple without lymphadenopathy. Abdomen: Soft, nontender, nondistended. Extremities: Normal skin color and turgor. No pedal edema Skin: No rashes, no jaundice Neurological: No focal deficits. Alert and oriented. - Labs CBC & Chem 7: 08/07/24 03:47 08/07/24 03:47 Labs: Abnormal Lab Results - Last 24 Hours (Table) 08/06/24 08/06/24 08/07/24 Range/Units 09:33 16:56 03:47 RBC 2.75 L (4.40-5.60) X 10*6/uL Hgb 8.2 L (13.0-17.0) g/dL Hct 26.8 L (39.6-50.0) % MCV 97.5 H (80.0-97.0) FL MCHC 30.6 L (32.0-37.0) g/dL RDW 15.9 H (11.5-14.5) % Immature Gran # 0.09 H (0.00-0.04) X 10*3/uL Carbon Dioxide (21.6-31.8) mmol/L Anion Gap (4.00-12.00) mmol/L BUN (9.0-27.0) mg/dL Creatinine (0.6-1.5) mg/dL Est GFR (CKD-EPI) (>=60) BUN/Creatinine Ratio (12.00-20.00) Ratio Calcium (8.7-10.3) mg/dL Vitamin D 25-Hydroxy 29.3 L (30.0-100.0) ng/mL Crossmatch See Detail 08/07/24 Range/Units 03:47 RBC (4.40-5.60) X 10*6/uL Hgb (13.0-17.0) g/dL Hct (39.6-50.0) % MCV (80.0-97.0) FL MCHC (32.0-37.0) g/dL RDW (11.5-14.5) % Immature Gran # (0.00-0.04) X 10*3/uL Carbon Dioxide 20.3 L (21.6-31.8) mmol/L Anion Gap 12.70 H (4.00-12.00) mmol/L BUN 47.9 H (9.0-27.0) mg/dL Creatinine 7.1 H (0.6-1.5) mg/dL Est GFR (CKD-EPI) 8 L (>=60) BUN/Creatinine Ratio 6.75 L (12.00-20.00) Ratio Calcium 12.8 H (8.7-10.3) mg/dL Vitamin D 25-Hydroxy (30.0-100.0) ng/mL Crossmatch Microbiology - Last 24 Hours (Table) 08/05/24 10:30 Urine Culture - Final Urine,Voided Assessment and Plan (1) Anemia Narrative/Plan: 64-year-old male with longstanding history of alcohol abuse drinking 1/5 of liquor a day was noted to have a normocytic normochromic anemia with a drop in his hemoglobin to 6.9 with no overt signs of blood loss. Denies any previous hi story of GI bleed however states that he has had upper endoscopy about a year ago with no report available. Patient was admitted for syncopal episode and was noted to have acute kidney injury with electrolyte imbalances. Nephrology following had ordered iron studies iron was 59 TIBC 284 saturation 20.77 and ferritin 240, therefore likely not an iron deficiency anemia secondary to blood loss. Likely secondary to underlying liver disease from alcoholism. Agree with symptomatic treatment with blood transfusion and continue to monitor for signs of GI bleed. Current Visit: Yes Status: Acute Code(s): D64.9 - ANEMIA, UNSPECIFIED SNOMED Code(s): 500178904 (2) Alcohol abuse Current Visit: Yes Status: Acute Code(s): F10.10 - ALCOHOL ABUSE, UNCOMPLICATED SNOMED Code(s): 72886663 (3) Hypomagnesemia Current Visit: Yes Status: Acute Code(s): E83.42 - HYPOMAGNESEMIA SNOMED Code(s): 252473125 (4) Hypercalcemia Current Visit: Yes Status: Acute Code(s): E83.52 - HYPERCALCEMIA SNOMED Code(s): 98064973 (5) ARF (acute renal failure) Current Visit: Yes Status: Acute Code(s): N17.9 - ACUTE KIDNEY FAILURE, UNSPECIFIED SNOMED Code(s): 37412788 (6) Syncope Current Visit: Yes Status: Acute Code(s): R55 - SYNCOPE AND COLLAPSE SNOMED Code(s): 447106608 Plan: 1. Continue symptomatic and supportive care 2. Continue diet as ordered 3. Protonix 40 mg daily for GI prophylaxis 4. Daily CBC, transfuse for hemoglobin less than 7 5. Recommend alcohol abstinence 6. Will add Zofran for nausea and vomiting 7. No plans on endoscopic evaluation at this time Thank you for this consultation, we will continue to follow. Dr. Leila Amador I agree with the dictator's note, documented as a scribe by Yesica Beth.
[2024-08-07] MEDS: predniSONE 20 MG TAB PO SCH (13:01)
[2024-08-07] MEDS: SODIUM CHLORIDE 0.9% 250 ML with PAMIDRONATE 30 MG IV ONE (13:01)
[2024-08-07 13:11] LABS: Magnesium 2.2 mg/dL (1.5-2.4); Phosphorus 5.9 mg/dL (2.4-5.1)
--- NOTE | 2024-08-07 13:20 | P.PN ---
Subjective Patient is a pleasant 64 years old male who presents because he fell at home. Patient felt dizzy and fell Currently he is awake oriented, very mildly confused but this looks more situational also. Patient felt severe dizziness this morning. He felt so risky so he slightly landed on the floor, he stayed on the floor for about half an hour, he denies syncope. Patient complaining of from heartburn and he vomited once earlier today. Also complains from his voiding, it hurts when he pees. He smokes 1 pack/day he was counseled to quit and he agrees to the nicotine patch. He drinks daily about 1 pint per day of fireball Patient afebrile Blood pressure is normal Hemoglobin 9. 1 down from 10-13 baseline. Creatinine 8.7. Simeco less than 10 . Renal ultrasound showing no hydronephrosis but limited to studies. Chest x- ray showing chronic changes with no acute process. EKG showing sinus rhythm at [address] changes but PVCs. Patient is currently on normal saline 130 mL/h 08/06 Patient sitting up in bed awake alert denies headache or dizziness today no syncope or similar complaint No chest pain or dyspnea. He vomited this morning which was no blood in it. Improved with antiemetic He complains from dysuria as well and urinalysis suspicious for UTI, ceftriaxone is ordered. Urine culture is pending. No signs of alcohol withdrawal Has Booker catheter with clear urine He is getting IV fluids Hemoglobin dropped to 6.9 and workup showing evidence of nutritional deficiency of vitamin B12, folate and iron. Consult GI team to rule out GI bleed Hemolysis unlikely with normal bilirubin high haptoglobin. Discussed with staff no Family member at bedside Active Medications Generic Name Dose Route Start Last Admin Trade Name Freq PRN Reason Stop Dose Admin Acetaminophen 650 mg 08/05/24 13:03 Acetaminophen Tab 325 Mg Tab PO Q6HR PRN Mild Pain or Fever > 100.5 Cyanocobalamin 1,000 mcg 08/06/24 09:15 Cyanocobalamin 1,000 Mcg/Ml 1 Ml Vial IM 08/09/24 09:14 DAILY [facility] Cyanocobalamin 1,000 mcg 08/09/24 09:00 Cyanocobalamin 500 Mcg Tab PO DAILY LIZZY Ferrous Sulfate 325 mg 08/06/24 09:30 Ferrous Sulfate 325 Mg Tab PO BID-W/MEALS LIZZY Folic Acid 1 mg 08/06/24 09:15 Folic Acid 1 Mg Tab PO DAILY LIZZY Sodium Chloride 1,000 mls @ 130 mls/hr 08/05/24 11:15 08/06/24 02:58 Saline 0.9% IV 130 mls/hr .[id number] LIZZY Administration Ceftriaxone Sodium 1 gm/ 50 mls @ 100 mls/hr 08/06/24 11:00 Sodium Chloride IVPB Q24HR LIZZY Protocol Lorazepam 0.5 mg 08/05/24 20:04 08/06/24 08:04 Lorazepam 0.5 Mg Tab PO 0.5 mg Q4HR PRN Administration Ciwa 4 To 5 Lorazepam 2 mg 08/05/24 20:04 Lorazepam 1 Mg Tab PO Q3HR PRN Ciwa 8 To 9 Lorazepam 1 mg 08/05/24 20:04 Lorazepam 1 Mg Tab PO Q4HR PRN Ciwa 6 To 7 Lorazepam 2 mg 08/05/24 20:04 Lorazepam 1 Mg Tab PO Q2HR PRN Ciwa 10 or greater Naloxone HCl 0.2 mg 08/05/24 13:03 Naloxone 0.4 Mg/Ml 1 Ml Vial IV Q2M PRN Opioid Reversal Nicotine 1 patch 08/05/24 20:15 08/06/24 08:03 Nicotine 21mg/24hr Patch TRANSDERM 1 patch DAILY LIZZY Administration Pantoprazole Sodium 40 mg 08/05/24 21:00 08/06/24 08:04 Pantoprazole 40 Mg/10 Ml Vial IVP 40 mg BID LIZZY Administration Thiamine HCl 100 mg 08/06/24 09:00 08/06/24 08:03 Thiamine 100 Mg Tab PO 100 mg DAILY LIZZY Administration Objective - Vital Signs Vital signs: Vital Signs Temp 97.8 F 08/07/24 07:38 Pulse 64 08/07/24 07:38 Resp 15 08/07/24 07:38 BP 120/71 08/07/24 07:38 Pulse Ox 97 08/07/24 07:38 FiO2 Intake & Output 08/06/24 08/07/24 08/07/24 18:59 06:59 18:59 Intake Total 310 Output Total 600 900 Balance -290 -900 Intake: Blood Product 310 Rc Pheresis 2 As3 Unit 310 [id number] Output: Urine 900 Emesis 600 Other: Voiding Method Indwelling Catheter Indwelling Catheter Indwelling Catheter - Exam GENERAL: The patient is alert and oriented x3, not in any acute distress. Well developed, well nourished. HEENT: Pupils are round and equally reacting to light. EOMI. No scleral icterus. No conjunctival pallor. Normocephalic, atraumatic. No pharyngeal erythema. No thyromegaly. CARDIOVASCULAR: S1 and S2 present. No murmurs, rubs, or gallops. PULMONARY: Chest is clear to auscultation, no wheezing , no crackles. ABDOMEN: Soft, nontender, nondistended, normoactive bowel sounds. No palpable organomegaly. MUSCULOSKELETAL: No joint swelling or deformity. EXTREMITIES: No cyanosis, clubbing, or pedal edema. NEUROLOGICAL: Gross neurological examination did not reveal any focal deficits. SKIN: No rashes. no petechiae. - Labs CBC & Chem 7: 08/07/24 03:47 08/07/24 03:47 Labs: Abnormal Lab Results - Last 24 Hours (Table) 08/06/24 08/06/24 08/06/24 Range/Units 09:33 16:56 16:56 RBC (4.40-5.60) X 10*6/uL Hgb (13.0-17.0) g/dL Hct (39.6-50.0) % MCV (80.0-97.0) FL MCHC (32.0-37.0) g/dL RDW (11.5-14.5) % Immature Gran # (0.00-0.04) X 10*3/uL Carbon Dioxide (21.6-31.8) mmol/L Anion Gap (4.00-12.00) mmol/L BUN (9.0-27.0) mg/dL Creatinine (0.6-1.5) mg/dL Est GFR (CKD-EPI) (>=60) BUN/Creatinine Ratio (12.00-20.00) Ratio Calcium (8.7-10.3) mg/dL Phosphorus (2.4-5.1) mg/dL Vitamin D 25-Hydroxy 29.3 L (30.0-100.0) ng/mL Vit D 1,25-Dihydroxy <5.0 L (19.9-79.3) pg/mL Crossmatch See Detail 08/07/24 08/07/24 08/07/24 Range/Units 03:47 03:47 03:47 RBC 2.75 L (4.40-5.60) X 10*6/uL Hgb 8.2 L (13.0-17.0) g/dL Hct 26.8 L (39.6-50.0) % MCV 97.5 H (80.0-97.0) FL MCHC 30.6 L (32.0-37.0) g/dL RDW 15.9 H (11.5-14.5) % Immature Gran # 0.09 H (0.00-0.04) X 10*3/uL Carbon Dioxide 20.3 L (21.6-31.8) mmol/L Anion Gap 12.70 H (4.00-12.00) mmol/L BUN 47.9 H (9.0-27.0) mg/dL Creatinine 7.1 H (0.6-1.5) mg/dL Est GFR (CKD-EPI) 8 L (>=60) BUN/Creatinine Ratio 6.75 L (12.00-20.00) Ratio Calcium 12.8 H (8.7-10.3) mg/dL Phosphorus 5.9 H (2.4-5.1) mg/dL Vitamin D 25-Hydroxy (30.0-100.0) ng/mL Vit D 1,25-Dihydroxy (19.9-79.3) pg/mL Crossmatch Microbiology - Last 24 Hours (Table) 08/05/24 10:30 Urine Culture - Final Urine,Voided Assessment and Plan Assessment: Acute hypercalcemia Acute kidney injury Acute urinary tract infection suspected secondary to gram-negative bacilli. Urine culture is growing vaishali of the skin and genital tract. Improving Acute on chronic anemia. Secondary to nutritional deficiency of vitamin B12 folate and iron. GI bleed very unlikely Fall at home with dizziness. Patient denies any more dizziness. No syncope or more falling Recently treated left lower extremity lesion with Bactrim Alcohol use disorder at risk of withdrawal Nicotine dependence. l Plan: Continue ceftriaxone for 1 more day. Last dose on 08/08 GI team consult, discussed case with their service, very unlikely to have GI bleed most likely is nutritional deficiencies which has been replaced now with iron folate and vitamin B12 S continue with the Protonix switch to once daily Continue with IV hydration normal saline 130 mL/h And pamidronate per nephrology team and monitor calcium level Nephrology team consult Start [facility] protocol thiamine and nicotine patch. No signs of alcohol withdrawal Labs and medication were reviewed.. Continue same treatment. Continue with symptomatic treatment. Resume home medication. Monitor labs and vitals. DVT and GI prophylaxis. Further recommendations as per clinical course of the patient DVT prophylaxis: S mechanical still hemoglobin acute anemia stabilized GI Prophylaxis: Protonix PT/OT: Pending Prognosis is guarded
--- NOTE | 2024-08-07 16:28 | P.PN ---
Subjective Progress Note Date: 08/07/24 Patient seen and evaluated for his MAHAD. Patient had 1 episode of non-bloody emesis this morning. Has complaint of dysuria. 24 hour urine ouptut via Booker catheter was 900 mL. Urine eosinophils positive suggesting possible underlying acute interstitial nephritis.. Exam: Vital signs reviewed. GENERAL: Patient is awake oriented, comfortable in bed, Booker catheter in place. CARDIO: Regular rate rhythm. PULM: No audible rhonchi or wheezes. ABD: Non-tender to palpation EXT: No edema Objective - Vital Signs Vital signs: Vital Signs Temp 97.8 F 08/07/24 07:38 Pulse 64 08/07/24 07:38 Resp 15 08/07/24 07:38 BP 120/71 08/07/24 07:38 Pulse Ox 97 08/07/24 07:38 FiO2 Intake & Output 08/06/24 08/07/24 08/07/24 18:59 06:59 18:59 Intake Total 310 Output Total 600 900 Balance -290 -900 Intake: Blood Product 310 Rc Pheresis 2 As3 Unit 310 [id number] Output: Urine 900 Emesis 600 Other: Voiding Method Indwelling Catheter Indwelling Catheter - Labs CBC & Chem 7: 08/08/24 06:07 08/08/24 06:07 Labs: Abnormal Lab Results - Last 24 Hours (Table) 08/06/24 08/06/24 08/06/24 Range/Units 03:18 03:18 09:33 RBC 2.34 L (4.40-5.60) X 10*6/uL Hgb 6.9 A* (13.0-17.0) g/dL Hct 23.0 L (39.6-50.0) % MCV 98.3 H (80.0-97.0) FL MCHC 30.0 L (32.0-37.0) g/dL RDW 15.0 H (11.5-14.5) % Immature Gran # 0.07 H (0.00-0.04) X 10*3/uL Carbon Dioxide 18.3 L (21.6-31.8) mmol/L Anion Gap 13.70 H (4.00-12.00) mmol/L BUN 55.2 H (9.0-27.0) mg/dL Creatinine 7.6 H (0.6-1.5) mg/dL Est GFR (CKD-EPI) 7 L (>=60) BUN/Creatinine Ratio 7.26 L (12.00-20.00) Ratio Calcium 12.2 H (8.7-10.3) mg/dL Total Bilirubin <0.2 L (0.3-1.2) mg/dL Albumin 3.5 L (3.8-4.9) g/dL Globulin 3.4 H (1.6-3.3) g/dL Albumin/Globulin Ratio 1.03 L (1.60-3.17) Ratio Vitamin D 25-Hydroxy (30.0-100.0) ng/mL Crossmatch See Detail 08/06/24 08/07/24 08/07/24 Range/Units 16:56 03:47 03:47 RBC 2.75 L (4.40-5.60) X 10*6/uL Hgb 8.2 L (13.0-17.0) g/dL Hct 26.8 L (39.6-50.0) % MCV 97.5 H (80.0-97.0) FL MCHC 30.6 L (32.0-37.0) g/dL RDW 15.9 H (11.5-14.5) % Immature Gran # 0.09 H (0.00-0.04) X 10*3/uL Carbon Dioxide 20.3 L (21.6-31.8) mmol/L Anion Gap 12.70 H (4.00-12.00) mmol/L BUN 47.9 H (9.0-27.0) mg/dL Creatinine 7.1 H (0.6-1.5) mg/dL Est GFR (CKD-EPI) 8 L (>=60) BUN/Creatinine Ratio 6.75 L (12.00-20.00) Ratio Calcium 12.8 H (8.7-10.3) mg/dL Total Bilirubin (0.3-1.2) mg/dL Albumin (3.8-4.9) g/dL Globulin (1.6-3.3) g/dL Albumin/Globulin Ratio (1.60-3.17) Ratio Vitamin D 25-Hydroxy 29.3 L (30.0-100.0) ng/mL Crossmatch Microbiology - Last 24 Hours (Table) 08/05/24 10:30 Urine Culture - Final Urine,Voided Assessment and Plan Assessment: MAHAD nonoliguric likely secondary to nonoliguric ATN, hypercalcemia vs AIN due to recent Bactrim/PPI use. Urine eosinophil positive. Also worsened with severe anemia with Hemoglobin 6.9 g/dL. Ultrasound showing no evidence of hydronephrosis. UA suggesting possible UTI with urine cultures pending patient complaining of dysuria. Booker catheter in place. CKD with unclear etiology versus MAHAD in March, baseline creatinine 2.38 dated 04/06/2023 and 0.9 in 2021. Acute on chronic normocytic anemia with percent saturation of 20.77%, status post 1 unit PRBC for Hgb < 7. Hgb today 8.2 Hyperkalemia secondary to acute kidney injury, urine retention. S/p Lokelma, resolved Anion gap metabolic acidosis Hypercalcemia, no calcium supplements noted, vitamin D 25 and 1,25 low Alcohol and nicotine dependence, serum alcohol < 10 Plan: Continue Sodium chloride 0.9% at 130 cc an hour. Patient with positive urine eosinophil, recommend to switch PPI to Pepcid Will start on prednisone 60 mg PO daily and monitor renal function. Continue with empiric antibiotic for UTI, await urine culture. Avoid nephrotoxic medications. PTH, PTHrP, serum/urine immunofixation pending. Obtain serologies for workup for GN GI consulted for possible GI bleed, suggesting symptomatic and supportive care. Continue to evaluate daily for the need for renal replacement therapy. Patient is seen and examined. Agree with resident's findings, assessment and plan.
[2024-08-07] MEDS: ACETAMINOPHEN TAB 325 MG TAB PO PRN (19:50)
[2024-08-08 06:55] LABS: African American GFR (CKD) 9 (>60 ml/min/1.73 sqM); Anion Gap 14 mmol/L; Blood Urea Nitrogen 49 mg/dL (9-20); Calcium 12.8 mg/dL (8.4-10.2); Carbon Dioxide 16 mmol/L (22-30); Chloride 106 mmol/L (98-107); Glucose 102 mg/dL (74-99); Non-African American GFR(CKD) 7 (>60 ml/min/1.73 sqM); Potassium 4.6 mmol/L (3.5-5.1); Sodium 136 mmol/L (137-145)
--- NOTE | 2024-08-08 07:57 | P.PN ---
Subjective Progress Note Date: 08/08/24 Principal diagnosis: Anemia This is a pleasant 64-year-old male with a history of hearing disorder who is hard of hearing, alcoholism, and daily smoker who had presented to the emergency department yesterday with dizziness and syncopal episode. Patient was admitted with acute kidney injury, hypomagnesemia and noted to have normocytic normochromic anemia. Nephrology was consulted for acute kidney injury. Patient had a drop in his hemoglobin from 9.0 on admission to 6.9 today. Gastroenterology was consulted for anemia. Patient states he has a history of alcoholism and drinks 1/5 a day for most of his life. He currently denies any abdominal pain no black stool or blood in his stool. He states he did have 1 episode of emesis this morning that was bilious, no blood noted. Denies any known history of esophageal varices or cirrhosis of the liver. States he had an upper endoscopy about a year ago possibly at [facility]. No history of colonoscopy. He denies any blood thinners. No regular NSAID use. 08/07/2024 Patient seen and examined today as a follow-up. States he has not had any more vomiting since last night. During which his episodes of emesis he denied any coffee-ground emesis or hematemesis. Denies any abdominal pain. No blood per rectum. Patient's repeat hemoglobin is 8.2 after 1 unit of blood yesterday. Patient is being followed closely by nephrology for acute kidney injury. 08/08/2024 Patient seen and examined today as a follow-up. Patient was resting comfortably. He states he has had no further nausea or vomiting. Had a bowel movement this morning no reported blood or black stool. Denies any abdominal pain. CBC pending, nephrology following for acute kidney injury Objective - Vital Signs Vital signs: Vital Signs Temp 98.0 F 08/08/24 01:36 Pulse 70 08/08/24 01:36 Resp 16 08/08/24 01:36 BP 136/78 08/08/24 01:36 Pulse Ox 96 08/08/24 01:36 FiO2 Intake & Output 08/07/24 08/07/24 08/08/24 06:59 18:59 06:59 Output Total 900 1400 1400 Balance -900 -1400 -1400 Output: Urine 900 1400 1400 Other: Voiding Method Indwelling Catheter Indwelling Catheter Indwelling Catheter # Bowel Movements 1 - Exam General appearance: The patient is alert, oriented, appears in no acute distress. HET: Head is normocephalic and atraumatic. Conjunctiva pink. Sclera anicteric. Hard of hearing. Neck: Supple without lymphadenopathy. Abdomen: Soft, nontender, nondistended. Extremities: Normal skin color and turgor. No pedal edema Skin: No rashes, no jaundice Neurological: No focal deficits. Alert and oriented. - Labs CBC & Chem 7: 08/07/24 03:47 08/08/24 06:07 Labs: Abnormal Lab Results - Last 24 Hours (Table) 08/06/24 08/07/24 08/07/24 Range/Units 16:56 03:47 03:47 RBC 2.75 L (4.40-5.60) X 10*6/uL Hgb 8.2 L (13.0-17.0) g/dL Hct 26.8 L (39.6-50.0) % MCV 97.5 H (80.0-97.0) FL MCHC 30.6 L (32.0-37.0) g/dL RDW 15.9 H (11.5-14.5) % Immature Gran # 0.09 H (0.00-0.04) X 10*3/uL Carbon Dioxide 20.3 L (21.6-31.8) mmol/L Anion Gap 12.70 H (4.00-12.00) mmol/L BUN 47.9 H (9.0-27.0) mg/dL Creatinine 7.1 H (0.6-1.5) mg/dL Est GFR (CKD-EPI) 8 L (>=60) BUN/Creatinine Ratio 6.75 L (12.00-20.00) Ratio Calcium 12.8 H (8.7-10.3) mg/dL Ionized Calcium Jsesica (4.5-5.3) mg/dL Phosphorus (2.4-5.1) mg/dL Vit D 1,25-Dihydroxy <5.0 L (19.9-79.3) pg/mL 08/07/24 08/07/24 Range/Units 03:47 17:05 RBC (4.40-5.60) X 10*6/uL Hgb (13.0-17.0) g/dL Hct (39.6-50.0) % MCV (80.0-97.0) FL MCHC (32.0-37.0) g/dL RDW (11.5-14.5) % Immature Gran # (0.00-0.04) X 10*3/uL Carbon Dioxide (21.6-31.8) mmol/L Anion Gap (4.00-12.00) mmol/L BUN (9.0-27.0) mg/dL Creatinine (0.6-1.5) mg/dL Est GFR (CKD-EPI) (>=60) BUN/Creatinine Ratio (12.00-20.00) Ratio Calcium (8.7-10.3) mg/dL Ionized Calcium Jessica 7.2 H* (4.5-5.3) mg/dL Phosphorus 5.9 H (2.4-5.1) mg/dL Vit D 1,25-Dihydroxy (19.9-79.3) pg/mL Assessment and Plan (1) Anemia Narrative/Plan: 64-year-old male with longstanding history of alcohol abuse drinking 1/5 of liquor a day was noted to have a normocytic normochromic anemia with a drop in his hemoglobin to 6.9 with no overt signs of blood loss. Denies any previous history of GI bleed however states that he has had upper endoscopy about a year ago with no report available. Patient was admitted for syncopal episode and was noted to have acute kidney injury with electrolyte imbalances. Nephrology mesfin morris had ordered iron studies iron was 59 TIBC 284 saturation 20.77 and ferritin 240, therefore likely not an iron deficiency anemia secondary to blood loss. Likely secondary to underlying liver disease from alcoholism. Agree with symptomatic treatment with blood transfusion and continue to monitor for signs of GI bleed. Current Visit: Yes Status: Acute Code(s): D64.9 - ANEMIA, UNSPECIFIED SNOMED Code(s): 726778406 (2) Alcohol abuse Current Visit: Yes Status: Acute Code(s): F10.10 - ALCOHOL ABUSE, UNCOMPLICATED SNOMED Code(s): 03542430 (3) Hypomagnesemia Current Visit: Yes Status: Acute Code(s): E83.42 - HYPOMAGNESEMIA SNOMED Code(s): 869670425 (4) Hypercalcemia Current Visit: Yes Status: Acute Code(s): E83.52 - HYPERCALCEMIA SNOMED Code(s): 93534004 (5) ARF (acute renal failure) Current Visit: Yes Status: Acute Code(s): N17.9 - ACUTE KIDNEY FAILURE, UNSPECIFIED SNOMED Code(s): 96262357 (6) Syncope Current Visit: Yes Status: Acute Code(s): R55 - SYNCOPE AND COLLAPSE SNO MED Code(s): 549909418 Plan: 1. Continue symptomatic and supportive care 2. Continue diet as ordered 3. Protonix 40 mg daily for GI prophylaxis 4. Daily CBC, transfuse for hemoglobin less than 7 5. Recommend alcohol abstinence 6. Antiemetics as needed 7. No plans on endoscopic evaluation at this time Thank you for this consultation, recommend outpatient follow-up with gastroenterology. We will sign off at this time. Dr. Leila Amador I agree with the dictator's note, documented as a scribe by Yesica Beth.
[2024-08-08 08:24] LABS: Basophils # (A) 0.04 X 10*3/uL (0.00-0.10); Basophils % (A) 0.3 %; Eosinophils # (A) 0.03 X 10*3/uL (0.04-0.35); Eosinophils % (A) 0.3 %; HCT 26.9 % (39.6-50.0); HGB 8.2 g/dL (13.0-17.0); Lymphocytes # (A) 1.43 X 10*3/uL (0.90-5.00); Lymphocytes % (A) 12.2 %; MCH 29.8 pg (27.0-32.0); MCHC 30.5 g/dL (32.0-37.0); MCV 97.8 FL (80.0-97.0); Mean Platelet Volume 9.8 FL (9.5-12.2); Monocytes # (A) 0.84 X 10*3/uL (0.20-1.00); Monocytes % (A) 7.2 %; NRBC Per 100 WBC 0 X 10*3/uL (0.00-0.01); Neutrophils # (A) 9.15 X 10*3/uL (1.80-7.70); Neutrophils % (A) 78.1 %; Platelet Count 207 X 10*3/uL (140-440); RBC 2.75 X 10*6/uL (4.40-5.60); RDW 15.7 % (11.5-14.5); WBC 11.71 X 10*3/uL (4.50-10.00)
[2024-08-08] MEDS: PANTOPRAZOLE 40 MG/10 ML VIAL IVP SCH (08:42)
--- NOTE | 2024-08-08 10:42 | P.PN ---
Subjective Progress Note Date: 08/08/24 Patient seen and evaluated for his MAHAD. Patient denies any vomiting this morning. However patient states does not see a long term care social worker nor does he regularly follow-up with the PCP. So no previous labs available for comparison. Patient states that overall he is feeling better. 24 hour urine ouptut via Booker catheter was 2.8 L. Serum creatinine remains elevated at 7.1 Exam: Vital signs reviewed. GENERAL: Patient is awake, oriented, comfortable in bed, Booker catheter in place. CARDIO: Regular rate rhythm. PULM: No audible rhonchi or wheezes. ABD: Non-tender to palpation EXT: No edema No asterixis noted Objective - Vital Signs Vital signs: Vital Signs Temp 99.6 F 08/08/24 07:29 Pulse 87 08/08/24 07:29 Resp 19 08/08/24 07:29 BP 116/75 08/08/24 07:29 Pulse Ox 98 08/08/24 07:29 FiO2 Intake & Output 08/07/24 08/08/24 08/08/24 18:59 06:59 18:59 Output Total 1400 1400 Balance -1400 -1400 Output: Urine 1400 1400 Other: Voiding Method Indwelling Catheter Indwelling Catheter Indwelling Catheter # Bowel Movements 1 - Labs CBC & Chem 7: 08/08/24 06:07 08/08/24 06:07 Labs: Abnormal Lab Results - Last 24 Hours (Table) 08/06/24 08/07/24 08/07/24 Range/Units 16:56 03:47 17:05 WBC (4.50-10.00) X 10*3/uL RBC (4.40-5.60) X 10*6/uL Hgb (13.0-17.0) g/dL Hct (39.6-50.0) % MCV (80.0-97.0) FL MCHC (32.0-37.0) g/dL RDW (11.5-14.5) % Immature Gran # (0.00-0.04) X 10*3/uL Neutrophils # (1.80-7.70) X 10*3/uL Eosinophils # (0.04-0.35) X 10*3/uL Sodium (137-145) mmol/L Carbon Dioxide (22-30) mmol/L BUN (9-20) mg/dL Creatinine (0.66-1.25) mg/dL Glucose (74-99) mg/dL Calcium (8.4-10.2) mg/dL Ionized Calcium Jessica 7.2 H* (4.5-5.3) mg/dL Phosphorus 5.9 H (2.4-5.1) mg/dL Vit D 1,25-Dihydroxy <5.0 L (19.9-79.3) pg/mL 08/08/24 08/08/24 08/08/24 Range/Units 06:07 06:07 06:07 WBC 11.71 H (4.50-10.00) X 10*3/uL RBC 2.75 L (4.40-5.60) X 10*6/uL Hgb 8.2 L (13.0-17.0) g/dL Hct 26.9 L (39.6-50.0) % MCV 97.8 H (80.0-97.0) FL MCHC 30.5 L (32.0-37.0) g/dL RDW 15.7 H (11.5-14.5) % Immature Gran # 0.22 H (0.00-0.04) X 10*3/uL Neutrophils # 9.15 H (1.80-7.70) X 10*3/uL Eosinophils # 0.03 L (0.04-0.35) X 10*3/uL Sodium 136 L (137-145) mmol/L Carbon Dioxide 16 L (22-30) mmol/L BUN 49 H (9-20) mg/dL Creatinine 7.11 H* (0.66-1.25) mg/dL Glucose 102 H (74-99) mg/dL Calcium 12.8 H (8.4-10.2) mg/dL Ionized Calcium Jessica 6.7 H* (4.5-5.3) mg/dL Phosphorus (2.4-5.1) mg/dL Vit D 1,25-Dihydroxy (19.9-79.3) pg/mL Assessment and Plan Assessment: MAHAD nonoliguric likely secondary to nonoliguric ATN vs AIN due to recent Bactrim/PPI use. Urine eosinophil positive. Also worsened with severe anemia with Hemoglobin 6.9g/dL. Ultrasound showing no evidence of hydronephrosis. UA suggesting possible UTI with urine cultures pending patient complaining of dysuria. Booker catheter in place. CKD with unclear etiology versus MAHAD in March, baseline creatinine 2.38 dated 04/06/2023 and 0.9 in 2021. Acute on chronic normocytic anemia with percent saturation of 20.77%, status post 1 unit PRBC for Hgb < 7. Hgb today 8.2 Hyperkalemia secondary to acute kidney injury, urine retention. S/p Lokelma, resolved Anion gap metabolic acidosis associated with acute kidney injury Hypercalcemia, no calcium supplements noted, vitamin D 25 and 1,25 low. Improving. PTH is pending. Status post pamidronate x 1 Alcohol and nicotine dependence, serum alcohol < 10 Plan: Continue IV fluids Patient with positive urine eosinophil, consider switching PPI to Pepcid Continue prednisone 60 mg PO daily and monitor renal function. Continue with empiric antibiotic for UTI, await urine culture. PTH, PTHrP, serum/urine immunofixation pending. Obtain serological workup for GN GI consulted for possible GI bleed, suggesting symptomatic and supportive care. Patient states he does not follow-up with PCP or sees a long term care social worker, so no previous labs available for comparison Continue to evaluate daily for the need for renal replacement therapy. Patient is seen and examined. Agree with resident's findings, assessment and plan.
[2024-08-08] MEDS: DEXTROSE 5% IN WATER 1,000 ML with SODIUM BICARB (1 MEQ/ML) 150 ML IV SCH (11:49)
--- NOTE | 2024-08-09 00:23 | P.PN ---
Subjective Patient is a pleasant 64 years old male who presents because he fell at home. Patient felt dizzy and fell Currently he is awake oriented, very mildly confused but this looks more situational also. Patient felt severe dizziness this morning. He felt so risky so he slightly landed on the floor, he stayed on the floor for about half an hour, he denies syncope. Patient complaining of from heartburn and he vomited once earlier today. Also complains from his voiding, it hurts when he pees. He smokes 1 pack/day he was counseled to quit and he agrees to the nicotine patch. He drinks daily about 1 pint per day of fireball Patient afebrile Blood pressure is normal Hemoglobin 9. 1 down from 10-13 baseline. Creatinine 8.7. Simeco less than 10 . Renal ultrasound showing no hydronephrosis but limited to studies. Chest x- ray showing chronic changes with no acute process. EKG showing sinus rhythm at [address] changes but PVCs. Patient is currently on normal saline 130 mL/h 08/06 Patient sitting up in bed awake alert denies headache or dizziness today no syncope or similar complaint No chest pain or dyspnea. He vomited this morning which was no blood in it. Improved with antiemetic He complains from dysuria as well and urinalysis suspicious for UTI, ceftriaxone is ordered. Urine culture is pending. No signs of alcohol withdrawal Has Booker catheter with clear urine He is getting IV fluids Hemoglobin dropped to 6.9 and workup showing evidence of nutritional deficiency of vitamin B12, folate and iron. Consult GI team to rule out GI bleed Hemolysis unlikely with normal bilirubin high haptoglobin. Discussed with staff no Family member at bedside 08/08 Patient clinically looks the same over the last 2 days sitting up in chair, feels somewhat generalized weak however mentation is fully awake and oriented He denies any specific symptom himself and he wants to go home today He still have significantly elevated ionized calcium at 6.9 today and IV fluid was switched from pamidronate infusion and to sodium bicarb Patient has mild leukocytosis secondary to steroids. Also workup for hyperglycemia lactic PTH still underway Objective - Vital Signs Vital signs: Vital Signs Temp 98.3 F 08/08/24 14:38 Pulse 70 08/08/24 14:38 Resp 18 08/08/24 14:38 BP 121/73 08/08/24 14:38 Pulse Ox 97 08/08/24 14:38 FiO2 Intake & Output 08/07/24 08/08/24 08/08/24 18:59 06:59 18:59 Output Total 1400 1400 Balance -1400 -1399 Output: Urine 1400 1400 Other: Voiding Method Indwelling Catheter Indwelling Catheter Indwelling Catheter # Bowel Movements 1 - Exam GENERAL: The patient is alert and oriented x3, not in any acute distress. Well developed, well nourished. HEENT: Pupils are round and equally reacting to light. EOMI. No scleral icterus. No conjunctival pallor. Normocephalic, atraumatic. No pharyngeal erythema. No thyromegaly. CARDIOVASCULAR: S1 and S2 present. No murmurs, rubs, or gallops. PULMONARY: Chest is clear to auscultation, no wheezing , no crackles. ABDOMEN: Soft, nontender, nondistended, normoactive bowel sounds. No palpable organomegaly. MUSCULOSKELETAL: No joint swelling or deformity. EXTREMITIES: No cyanosis, clubbing, or pedal edema. NEUROLOGICAL: Gross neurological examination did not reveal any focal deficits. SKIN: No rashes. no petechiae. - Labs CBC & Chem 7: 08/08/24 06:07 08/08/24 06:07 Labs: Abnormal Lab Results - Last 24 Hours (Table) 08/07/24 08/08/24 08/08/24 Range/Units 17:05 06:07 06:07 WBC (4.50-10.00) X 10*3/uL RBC (4.40-5.60) X 10*6/uL Hgb (13.0-17.0) g/dL Hct (39.6-50.0) % MCV (80.0-97.0) FL MCHC (32.0-37.0) g/dL RDW (11.5-14.5) % Immature Gran # (0.00-0.04) X 10*3/uL Neutrophils # (1.80-7.70) X 10*3/uL Eosinophils # (0.04-0.35) X 10*3/uL Sodium 136 L (137-145) mmol/L Carbon Dioxide 16 L (22-30) mmol/L BUN 49 H (9-20) mg/dL Creatinine 7.11 H* (0.66-1.25) mg/dL Glucose 102 H (74-99) mg/dL Calcium 12.8 H (8.4-10.2) mg/dL Ionized Calcium Jessica 7.2 H* 6.7 H* (4.5-5.3) mg/dL 08/08/24 Range/Units 06:07 WBC 11.71 H (4.50-10.00) X 10*3/uL RBC 2.75 L (4.40-5.60) X 10*6/uL Hgb 8.2 L (13.0-17.0) g/dL Hct 26.9 L (39.6-50.0) % MCV 97.8 H (80.0-97.0) FL MCHC 30.5 L (32.0-37.0) g/dL RDW 15.7 H (11.5-14.5) % Immature Gran # 0.22 H (0.00-0.04) X 10*3/uL Neutrophils # 9.15 H (1.80-7.70) X 10*3/uL Eosinophils # 0.03 L (0.04-0.35) X 10*3/uL Sodium (137-145) mmol/L Carbon Dioxide (22-30) mmol/L BUN (9-20) mg/dL Creatinine (0.66-1.25) mg/dL Glucose (74-99) mg/dL Calcium (8.4-10.2) mg/dL Ionized Calcium Jessica (4.5-5.3) mg/dL Assessment and Plan Assessment: Acute hypercalcemia Acute kidney injury Acute urinary tract infection suspected secondary to gram-negative bacilli. Urine culture is growing vaishali of the skin and genital tract. Improving Acute on chronic anemia. Secondary to nutritional deficiency of vitamin B12 folate and iron. GI bleed very unlikely Fall at home with dizziness. Patient denies any more dizziness. No syncope or more falling Recently treated left lower extremity lesion with Bactrim Alcohol use disorder at risk of withdrawal Nicotine dependence. l Plan: Continue ceftriaxone for 1 more day. Last dose on 08/08 GI team consult, discussed case with their service, very unlikely to have GI bleed most likely is nutritional deficiencies which has been replaced now with iron folate and vitamin B12. GI team signed off the case, patient is on Protonix Continue with IV hydration sodium bicarb Status post pamidronate per nephrology team and monitor calcium level Labs and medication were reviewed.. Continue same treatment. Continue with symptomatic treatment. Resume home medication. Monitor labs and vitals. DVT and GI prophylaxis. Further recommendations as per clinical course of the patient DVT prophylaxis: S mechanical still hemoglobin acute anemia stabilized GI Prophylaxis: Protonix PT/OT: Pending Prognosis is guarded
[2024-08-09] MEDS: CYANOCOBALAMIN 500 MCG TAB PO SCH (08:31)
[2024-08-09 12:21] LABS: African American GFR (CKD) 10 (>60 ml/min/1.73 sqM); Anion Gap 11 mmol/L; Blood Urea Nitrogen 54 mg/dL (9-20); Calcium 10.5 mg/dL (8.4-10.2); Carbon Dioxide 22 mmol/L (22-30); Chloride 104 mmol/L (98-107); Glucose 92 mg/dL (74-99); Non-African American GFR(CKD) 9 (>60 ml/min/1.73 sqM); Potassium 3.8 mmol/L (3.5-5.1); Sodium 137 mmol/L (137-145)
--- NOTE | 2024-08-09 12:24 | P.PN ---
Subjective Patient seen and evaluated for his MAHAD. 24 hour urine ouptut via Booker catheter was 2.7 L Urine eosinophils positive suggesting possible underlying acute interstitial nephritis.. No vomiting reported. Tolerating oral intake.sliding awaiting labs from today Serologies are pending Maintained on steroids for acute interstitial nephritis Objective - Vital Signs Vital signs: Vital Signs Temp 98.2 F 08/09/24 07:47 Pulse 69 08/09/24 07:47 Resp 15 08/09/24 07:47 BP 106/60 08/09/24 07:47 Pulse Ox 95 08/09/24 07:47 FiO2 Intake & Output 08/08/24 08/09/24 08/09/24 18:59 06:59 18:59 Output Total 1150 1600 Balance -1150 -1600 Output: Urine 1150 1600 Other: Voiding Method Indwelling Catheter Indwelling Catheter - Exam patient is sleeping He is hard of hearing No acute distress Examination of the heart S1 and S2 Examination of the lungs bilateral breath sounds are heard No edema noted - Labs CBC & Chem 7: 08/08/24 06:07 08/08/24 06:07 Assessment and Plan Assessment: 1. MAHAD nonoliguric likely secondary to nonoliguric ATN, hypercalcemia, possible AIN due to recent Bactrim/PPI use. Urine eosinophil positive. Also worsened with severe anemia2. Ultrasound showing no evidence of hydronephrosis. UA suggesting possible UTI with urine cultures pending patient complaining of dysuria. Booker catheter in place. 2. CKD with unclear etiology versus MAHAD in March, baseline creatinine 2.38 dated 04/06/2023 and 0.9 in 2021. 3. Acute on chronic normocytic anemia with percent saturation of 20.77%, status post 1 unit PRBC for Hgb < 7. Hgb today 8.2 4. Hyperkalemia secondary to acute kidney injury, urine retention. S/p Lokelma, resolved 5. Anion gap metabolic acidosis 6. Hypercalcemia, no calcium supplements noted, vitamin D 25 and 1,25 low. PTH is still pending. Status post pamidronate 1 7. Alcohol and nicotine dependence, serum alcohol < 10 Plan: continue with IV fluids Patient with positive urine eosinophil, recommend to switch PPI to Pepcid continue prednisone Avoid nephrotoxic medications. PTH, serum/urine immunofixation pending. follow-up on serologies for workup for GN Continue to evaluate daily for the need for renal replacement therapy.
[2024-08-09 13:14] LABS: Hepatitis B Surface Antigen Nonreactive (Nonreactive); Hepatitis C IgG Antibody Nonreactive (Nonreactive)
[2024-08-09 14:01] LABS: Hepatitis B Surface AB- Quant 6.7 mIU/mL
--- NOTE | 2024-08-10 00:16 | P.PN ---
Subjective Patient is a pleasant 64 years old male who presents because he fell at home. Patient felt dizzy and fell Currently he is awake oriented, very mildly confused but this looks more situational also. Patient felt severe dizziness this morning. He felt so risky so he slightly landed on the floor, he stayed on the floor for about half an hour, he denies syncope. Patient complaining of from heartburn and he vomited once earlier today. Also complains from his voiding, it hurts when he pees. He smokes 1 pack/day he was counseled to quit and he agrees to the nicotine patch. He drinks daily about 1 pint per day of fireball Patient afebrile Blood pressure is normal Hemoglobin 9. 1 down from 10-13 baseline. Creatinine 8.7. Simeco less than 10 . Renal ultrasound showing no hydronephrosis but limited to studies. Chest x- ray showing chronic changes with no acute process. EKG showing sinus rhythm at [address] changes but PVCs. Patient is currently on normal saline 130 mL/h 08/06 Patient sitting up in bed awake alert denies headache or dizziness today no syncope or similar complaint No chest pain or dyspnea. He vomited this morning which was no blood in it. Improved with antiemetic He complains from dysuria as well and urinalysis suspicious for UTI, ceftriaxone is ordered. Urine culture is pending. No signs of alcohol withdrawal Has Booker catheter with clear urine He is getting IV fluids Hemoglobin dropped to 6.9 and workup showing evidence of nutritional deficiency of vitamin B12, folate and iron. Consult GI team to rule out GI bleed Hemolysis unlikely with normal bilirubin high haptoglobin. Discussed with staff no Family member at bedside 08/08 Patient clinically looks the same over the last 2 days sitting up in chair, feels somewhat generalized weak however mentation is fully awake and oriented He denies any specific symptom himself and he wants to go home today He still have significantly elevated ionized calcium at 6.9 today and IV fluid was switched from pamidronate infusion and to sodium bicarb Patient has mild leukocytosis secondary to steroids. Also workup for hyperglycemia lactic PTH still underway 08/09 Patient sitting up in bed at the same He does not complain from new complaint No dizziness or chest pain or dyspnea Still getting sodium bicarb His calcium level improved today Objective - Vital Signs Vital signs: Vital Signs Temp 98.2 F 08/09/24 07:47 Pulse 69 08/09/24 07:47 Resp 15 08/09/24 07:47 BP 106/60 08/09/24 07:47 Pulse Ox 95 08/09/24 07:47 FiO2 Intake & Output 08/08/24 08/09/24 08/09/24 18:59 06:59 18:59 Output Total 1150 1600 Balance -1150 -1600 Output: Urine 1150 1600 Other: Voiding Method Indwelling Catheter Indwelling Catheter - Exam GENERAL: The patient is alert and oriented x3, not in any acute distress. Well developed, well nourished. HEENT: Pupils are round and equally reacting to light. EOMI. No scleral icterus. No conjunctival pallor. Normocephalic, atraumatic. No pharyngeal erythema. No thyromegaly. CARDIOVASCULAR: S1 and S2 present. No murmurs, rubs, or gallops. PULMONARY: Chest is clear to auscultation, no wheezing , no crackles. ABDOMEN: Soft, nontender, nondistended, normoactive bowel sounds. No palpable organomegaly. MUSCULOSKELETAL: No joint swelling or deformity. EXTREMITIES: No cyanosis, clubbing, or pedal edema. NEUROLOGICAL: Gross neurological examination did not reveal any focal deficits. SKIN: No rashes. no petechiae. - Labs CBC & Chem 7: 08/08/24 06:07 08/09/24 11:41 Assessment and Plan Assessment: Acute hypercalcemia Acute kidney injury Acute urinary tract infection suspected secondary to gram-negative bacilli. Urine culture is growing vaishali of the skin and genital tract. Improving Acute on chronic anemia. Secondary to nutritional deficiency of vitamin B12 fo late and iron. GI bleed very unlikely Fall at home with dizziness. Patient denies any more dizziness. No syncope or more falling Recently treated left lower extremity lesion with Bactrim Alcohol use disorder at risk of withdrawal Nicotine dependence. l Plan: Continue ceftriaxone for 1 more day. Last dose on 08/08 GI team consult, discussed case with their service, very unlikely to have GI bleed most likely is nutritional deficiencies which has been replaced now with iron folate and vitamin B12. GI team signed off the case, patient is on Protonix Continue with IV hydration sodium bicarb Status post pamidronate per nephrology team and monitor calcium level Labs and medication were reviewed.. Continue same treatment. Continue with symptomatic treatment. Resume home medication. Monitor labs and vitals. DVT and GI prophylaxis. Further recommendations as per clinical course of the patient DVT prophylaxis: S mechanical still hemoglobin acute anemia stabilized GI Prophylaxis: Protonix PT/OT: Pending Prognosis is guarded
[2024-08-10 11:31] LABS: African American GFR (CKD) 12 (>60 ml/min/1.73 sqM); Anion Gap 9 mmol/L; Blood Urea Nitrogen 54 mg/dL (9-20); Calcium 8.8 mg/dL (8.4-10.2); Carbon Dioxide 25 mmol/L (22-30); Chloride 102 mmol/L (98-107); Glucose 108 mg/dL (74-99); Non-African American GFR(CKD) 11 (>60 ml/min/1.73 sqM); Potassium 3.1 mmol/L (3.5-5.1); Sodium 136 mmol/L (137-145)
[2024-08-10] MEDS: TAMSULOSIN 0.4 MG CAP.ER.24H PO STA (11:34)
--- NOTE | 2024-08-10 12:33 | P.PN ---
Subjective Patient seen and evaluated for his MAHAD. 24 hour urine ouptut via Booker catheter was 2.7 L Urine eosinophils positive suggesting possible underlying acute interstitial nephritis.. No vomiting reported. Tolerating oral intake. Serum creatinine decreased to 5.2 today Maintained on steroids for acute interstitial nephritis Objective - Vital Signs Vital signs: Vital Signs Temp 98.4 F 08/10/24 07:26 Pulse 70 08/10/24 07:26 Resp 18 08/10/24 07:26 BP 132/60 08/10/24 07:26 Pulse Ox 98 08/10/24 07:26 FiO2 Intake & Output 08/09/24 08/10/24 08/10/24 18:59 06:59 18:59 Intake Total 500 Output Total 1800 Balance 500 -1800 Intake: Oral 500 Output: Urine 1800 Other: Voiding Method Indwelling Catheter Indwelling Catheter - Exam patient is sleeping He is hard of hearing No acute distress Examination of the heart S1 and S2 Examination of the lungs bilateral breath sounds are heard No edema noted - Labs CBC & Chem 7: 08/08/24 06:07 08/10/24 11:01 Labs: Abnormal Lab Results - Last 24 Hours (Table) 08/10/24 Range/Units 11:01 Sodium 136 L (137-145) mmol/L Potassium 3.1 L (3.5-5.1) mmol/L BUN 54 H (9-20) mg/dL Creatinine 5.29 H (0.66-1.25) mg/dL Glucose 108 H (74-99) mg/dL Assessment and Plan Assessment: 1. MAHAD nonoliguric likely secondary to nonoliguric ATN, hypercalcemia, possible AIN due to recent Bactrim/PPI use. Urine eosinophil positive. Also worsened with severe anemia2. Ultrasound showing no evidence of hydronephrosis. UA suggesting possible UTI with urine cultures pending patient complaining of dysur ia. Booker catheter in place. 2. CKD with unclear etiology versus MAHAD in March, baseline creatinine 2.38 dated 04/06/2023 and 0.9 in 2021. 3. Acute on chronic normocytic anemia with percent saturation of 20.77%, status post 1 unit PRBC for Hgb < 7. Hgb today 8.2 4. Hyperkalemia secondary to acute kidney injury, urine retention. S/p Lokelma, resolved 5. Anion gap metabolic acidosis 6. Hypercalcemia, no calcium supplements noted, vitamin D 25 and 1,25 low. PTH is still pending. Status post pamidronate 1 7. Alcohol and nicotine dependence, serum alcohol < 10 Plan: PTH, serum/urine immunofixation pending. follow-up on serologies for workup for GN Replace potassium Follow-up on PTH Follow-up in the office in 1 week post discharge
[2024-08-10] MEDS: POTASSIUM CHLORIDE ER 20 MEQ TAB.ER PO STA (13:57)
--- NOTE | 2024-08-11 07:59 | P.PN ---
Subjective Patient is a pleasant 64 years old male who presents because he fell at home. Patient felt dizzy and fell Currently he is awake oriented, very mildly confused but this looks more situational also. Patient felt severe dizziness this morning. He felt so risky so he slightly landed on the floor, he stayed on the floor for about half an hour, he denies syncope. Patient complaining of from heartburn and he vomited once earlier today. Also complains from his voiding, it hurts when he pees. He smokes 1 pack/day he was counseled to quit and he agrees to the nicotine patch. He drinks daily about 1 pint per day of fireball Patient afebrile Blood pressure is normal Hemoglobin 9. 1 down from 10-13 baseline. Creatinine 8.7. Simeco less than 10 . Renal ultrasound showing no hydronephrosis but limited to studies. Chest x- ray showing chronic changes with no acute process. EKG showing sinus rhythm at [address] changes but PVCs. Patient is currently on normal saline 130 mL/h 08/06 Patient sitting up in bed awake alert denies headache or dizziness today no syncope or similar complaint No chest pain or dyspnea. He vomited this morning which was no blood in it. Improved with antiemetic He complains from dysuria as well and urinalysis suspicious for UTI, ceftriaxone is ordered. Urine culture is pending. No signs of alcohol withdrawal Has Booker catheter with clear urine He is getting IV fluids Hemoglobin dropped to 6.9 and workup showing evidence of nutritional deficiency of vitamin B12, folate and iron. Consult GI team to rule out GI bleed Hemolysis unlikely with normal bilirubin high haptoglobin. Discussed with staff no Family member at bedside 08/08 Patient clinically looks the same over the last 2 days sitting up in chair, feels somewhat generalized weak however mentation is fully awake and oriented He denies any specific symptom himself and he wants to go home today He still have significantly elevated ionized calcium at 6.9 today and IV fluid was switched from pamidronate infusion and to sodium bicarb Patient has mild leukocytosis secondary to steroids. Also workup for hyperglycemia lactic PTH still underway 08/09 Patient sitting up in bed at the same He does not complain from new complaint No dizziness or chest pain or dyspnea Still getting sodium bicarb His calcium level improved today 08/10 No new symptom Remains on sodium bicarb drip Creatinine improving, calcium back to reference range at 8.8 He has good urine output Request to discontinue Booker catheter which was removed Continue with the Flomax Continue with bladder check Objective - Vital Signs Vital signs: Vital Signs Temp 98.4 F 08/10/24 07:26 Pulse 70 08/10/24 07:26 Resp 18 08/10/24 07:26 BP 132/60 08/10/24 07:26 Pulse Ox 98 08/10/24 07:26 FiO2 Intake & Output 08/09/24 08/10/24 08/10/24 18:59 06:59 18:59 Intake Total 500 Output Total 1800 Balance 500 -1800 Intake: Oral 500 Output: Urine 1800 Other: Voiding Method Indwelling Catheter - Exam GENERAL: The patient is alert and oriented x3, not in any acute distress. Well developed, well nourished. HEENT: Pupils are round and equally reacting to light. EOMI. No scleral icterus. No conjunctival pallor. Normocephalic, atraumatic. No pharyngeal erythema. No thyromegaly. CARDIOVASCULAR: S1 and S2 present. No murmurs, rubs, or gallops. PULMONARY: Chest is clear to auscultation, no wheezing , no crackles. ABDOMEN: Soft, nontender, nondistended, normoactive bowel sounds. No palpable or ganomegaly. MUSCULOSKELETAL: No joint swelling or deformity. EXTREMITIES: No cyanosis, clubbing, or pedal edema. NEUROLOGICAL: Gross neurological examination did not reveal any focal deficits. SKIN: No rashes. no petechiae. - Labs CBC & Chem 7: 08/08/24 06:07 08/10/24 11:01 Labs: Abnormal Lab Results - Last 24 Hours (Table) 08/09/24 Range/Units 11:41 BUN 54 H (9-20) mg/dL Creatinine 6.23 H (0.66-1.25) mg/dL Calcium 10.5 H (8.4-10.2) mg/dL Assessment and Plan Assessment: Acute hypercalcemia Acute kidney injury Acute urinary tract infection suspected secondary to gram-negative bacilli. Urine culture is growing vaishali of the skin and genital tract. Improving Acute on chronic anemia. Secondary to nutritional deficiency of vitamin B12 folate and iron. GI bleed very unlikely Fall at home with dizziness. Patient denies any more dizziness. No syncope or more falling Recently treated left lower extremity lesion with Bactrim Alcohol use disorder at risk of withdrawal Nicotine dependence. l Plan: Patient finished antibiotic Sodium bicarb drip per nephrology team Discontinue Booker catheter, monitor for further retention Calcium back to reference range, further workup for hypercalcemia is deferred to his nephrology team DVT prophylaxis: S mechanical still hemoglobin acute anemia stabilized GI Prophylaxis: Protonix PT/OT: Pending Prognosis is guarded
[2024-08-11 08:33] VITALS: BP 99/51; RESP 16; TEMP 98.1
[2024-08-11] MEDS: TAMSULOSIN 0.4 MG CAP.ER.24H PO SCH (09:55)
[2024-08-11 10:59] VITALS: PULSE 69
--- NOTE | 2024-08-11 11:03 | P.PN ---
Subjective Patient is seen in follow-up for acute kidney injury. Renal function improving. Has Booker catheter. Nonoliguric. Wants to go home. Vital signs are stable. General: No acute distress. HEENT: Head exam is unremarkable. LUNGS: No audible rhonchi or wheezes. HEART: Rate and Rhythm are regular. ABDOMEN: Nontender. EXTREMITITES: No edema. Objective - Vital Signs Vital signs: Vital Signs Temp 98.1 F 08/11/24 08:00 Pulse 85 08/11/24 08:00 Resp 16 08/11/24 08:00 BP 99/51 08/11/24 08:00 Pulse Ox 97 08/11/24 08:00 FiO2 Intake & Output 08/10/24 08/11/24 08/11/24 18:59 06:59 18:59 Intake Total 200 Output Total 1925 1150 Balance -1725 -1150 Intake: Oral 200 Output: Urine 1925 1150 Other: Voiding Method Indwelling Catheter Indwelling Catheter - Labs CBC & Chem 7: 08/08/24 06:07 08/10/24 11:01 Labs: Abnormal Lab Results - Last 24 Hours (Table) 08/10/24 Range/Units 11:01 Sodium 136 L (137-145) mmol/L Potassium 3.1 L (3.5-5.1) mmol/L BUN 54 H (9-20) mg/dL Creatinine 5.29 H (0.66-1.25) mg/dL Glucose 108 H (74-99) mg/dL Assessment and Plan Plan: Assessment: 1. Acute kidney injury secondary to ATN secondary to hypercalcemia. Also concern for AIN and is maintained on prednisone -started August 07, 2024. Urine eosinophils positive. Additionally he was also on Bactrim outpatient which can impair creatinine secretion. No hydronephrosis noted on ultrasound. Creatinine 8.74 on admission and improved to 5.29 as of yesterday. Creatinine in March 2023 was 2.38. Initial UA with 1+ protein, 1 RBC. 2. Hypokalemia from intracellular shifting from IV bicarb. Replaced. 3. Metabolic acidosis secondary to acute kidney injury improved with bicarb drip. 4. Acute blood loss anemia status post blood transfusion. 5. Hypercalcemia secondary to volume contraction. No calcium or vitamin D supplements noted. Calcium level now normal. Status post pamidronate this admission. Vitamin D level 29.3. Calcitriol level less than 5. Plan: Maintain prednisone. Follow-up serologies. Follow-up pending workup for hypercalcemia. Continue to monitor renal function and urine output. Discontinue bicarb drip. Start normal saline.
[2024-08-11] MEDS: SODIUM CHLORIDE 0.9% 1,000 ML IV SCH (11:28)
[2024-08-11 11:39] LABS: ALT 20 U/L (4-49); AST 21 U/L (17-59); African American GFR (CKD) 15 (>60 ml/min/1.73 sqM); Albumin 3.3 g/dL (3.5-5.0); Albumin/Globulin Ratio 1.1; Alkaline Phosphatase 69 U/L (38-126); Anion Gap 7 mmol/L; Blood Urea Nitrogen 54 mg/dL (9-20); Calcium 8.3 mg/dL (8.4-10.2); Carbon Dioxide 27 mmol/L (22-30); Chloride 102 mmol/L (98-107); Glucose 86 mg/dL (74-99); Magnesium 1.7 mg/dL (1.6-2.3); Non-African American GFR(CKD) 13 (>60 ml/min/1.73 sqM); Potassium 3.2 mmol/L (3.5-5.1); Sodium 136 mmol/L (137-145); Total Bilirubin 0.1 mg/dL (0.2-1.3); Total Protein 6.3 g/dL (6.3-8.2)
[2024-08-11] MEDS: POTASSIUM CHLORIDE ER 20 MEQ TAB.ER PO STA (12:28)
[2024-08-11 13:43] LABS: Anti-DNA, DS unit <1.0 IU/mL; DNA Double-Stranded Negative (Negative)
[2024-08-11 15:21] LABS: C-ANCA <1:20 Titer (<1:20)
[2024-08-12 06:47] LABS: Anti-Glomerular Basement Memb <1.5 U/mL (<7.0)
--- NOTE | 2024-08-14 00:26 | P.DS ---
Providers Date of admission: 08/05/24 13:05 Expected date of discharge: 08/11/24 Attending physician: Domenica Bee Consults: 08/05/24 13:03 Consult Physician Routine Consulting Provider: Maureen Recinos Consult Reason/Comments: ARF Do you want consulting provider notified?: Already Contacted Primary care physician: Stated None Hospital Course: Final diagnosis Acute hypercalcemia Acute kidney injury Acute urinary tract infection suspected secondary to gram-negative bacilli. Urine culture is growing vaishali of the skin and genital tract. Improving Acute on chronic anemia. Secondary to nutritional deficiency of vitamin B12 folate and iron. GI bleed very unlikely Fall at home with dizziness. Recently treated left lower extremity lesion with Bactrim Alcohol use disorder at risk of withdrawal Nicotine dependence. GI prophylaxis DVT prophylaxis Full code Discharge disposition Patient is left AGAINST MEDICAL ADVICE. Please refer to nursing documentation for event of patient leaving total time taken is greater than 35 minutes. Hospital course This is a 64-year-old male who was recently admitted with acute urinary tract infection along with significant electrolyte abnormalities and acute kidney injury likely acute tubular necrosis. Patient with significant medical comorbidities being followed here by urology recommending to continue with current regimen. Creatinine is 5.2 and patient is voiding status post Booker catheter removal yesterday. Patient was not cleared by nephrology and decided to leave AGAINST MEDICAL ADVICE. Please refer to other consultation notes for further HPI. The impression and plan of care has been dictated by Chasidy Peters, Nurse Practitioner as directed. Dr. Rohit MD I have performed a history and examination and MDM of this patient, discussed the same with the dictator, and agree with the dictator's assessment and plan as written ,documented as a scribe. Based on total visit time, I have performed more than 50% of the visit. Patient Condition at Discharge: Stable Plan - Discharge Summary Discharge Rx Participant: Yes New Discharge Prescriptions: No Action Sulfamethox-Tmp 800-160Mg [Bactrim Ds] 2 tab PO Q12HR Omeprazole 40 mg PO DAILY PRN PRN Reason: acid reflux Discharge Medication List Omeprazole 40 mg PO DAILY PRN 08/05/24 [History] Sulfamethox-Tmp 800-160Mg [Bactrim Ds] 2 tab PO Q12HR 08/05/24 [History] Follow up Appointment(s)/Referral(s): Dott[facility] [REFERRING] - 2 Weeks (Gastroenterology follow-up, anemia) None,Stated [Primary Care Provider] - 1-2 days Activity/Diet/Wound Care/Special Instructions: per patient needs to be discharged on prednisone and follow up with a urologist one week post discharge. Discharge/Stand Alone Forms: Area PCPs Discharge Disposition: LEFT AGAINST MEDICAL ADVICE
== END 2024-08-11 13:21 | disposition left against medical advice (07) | DRG 640 ==
LOC: EC 07:33 → 4SSUR 13:05
PROVIDERS: ADMIT Hospitalist; ATTEND Hospitalist
PROC: 30233N1 Transfusion of Nonautologous Red Blood Cells into Peripheral Vein, Percutaneous Approach (ICD-10-PCS; principal; 2024-08-06)
DX: E83.52 Hypercalcemia (principal); N17.0 Acute kidney failure with tubular necrosis; K72.10 Chronic hepatic failure without coma; D62 Acute posthemorrhagic anemia; E87.20 Acidosis, unspecified; F10.239 Alcohol dependence with withdrawal, unspecified; R56.9 Unspecified convulsions; D63.1 Anemia in chronic kidney disease; N18.9 Chronic kidney disease, unspecified; N10 Acute pyelonephritis; D72.829 Elevated white blood cell count, unspecified; T38.0X5A Adverse effect of glucocorticoids and synthetic analogues, initial encounter; K70.9 Alcoholic liver disease, unspecified; E87.6 Hypokalemia; E53.8 Deficiency of other specified B group vitamins; E63.9 Nutritional deficiency, unspecified; E83.42 Hypomagnesemia; E87.5 Hyperkalemia; F17.210 Nicotine dependence, cigarettes, uncomplicated; I49.3 Ventricular premature depolarization; Z91.81 History of falling; Z79.52 Long term (current) use of systemic steroids; Z53.29 Procedure and treatment not carried out because of patient's decision for other reasons
CPT/HCPCS: 36415; 71046; 76770; 80048; 80053; 80320; 81001; 82272; 82306; 82330; 82607; 82652; 82728; 82746; 83010; 83516; 83540; 83550; 83615; 83735; 83970; 84100; 84484; 85025; 85027; 85045; 85610; 85730; 86038; 86225; 86255; 86334; 86335; 86706; 86803; 86850; 86900; 86901; 86920; 87086; 87205; 87340; 93005; 96361; 96374; 99285